=== PATIENT | male | born 1955 | race Caucasian/White ===

== ENCOUNTER 2016-08-30 11:12 | Inpatient (IN) | payer MEDICARE ==
[2016-08-30] MEDS ORDERED: SODIUM CHLORIDE 0.9% 1,000 ML IV STA (11:57)
[2016-08-30 12:33] LABS: Appearance,Urine Clear (Clear); Basophils # (A) 0.1 k/uL (0-0.2); Basophils % (A) 1 %; Bilirubin,Urine Negative (Negative); CHCM 34.6; Eosinophils % (A) 0 %; Glucose,Urine (UA) Negative (Negative); HCT 49.1 % (39.0-53.0); HDW 2.36; HGB 16.5 gm/dL (13.0-17.5); Ketones,Urine 1+ (Negative); Leukocyte Esterase,Urine Negative (Negative); Luc # (Auto) 0.11; Luc % (Auto) 2; Lymphocytes # (A) 0.9 k/uL (1.0-4.8); Lymphocytes % (A) 12 %; MCH 34.1 pg (25.0-35.0); MCHC 33.6 g/dL (31.0-37.0); MCV 101.6 fL (80.0-100.0); Macrocytosis Slight; Mean Platelet Volume 7.3; Monocytes # (A) 0.9 k/uL (0-1.0); Monocytes % (A) 12 %; Neutrophils # (A) 5.6 k/uL (1.3-7.7); Neutrophils % (A) 73 %; Nitrite,Urine Negative (Negative); PH, Urine 6.5 (5.0-8.0); Protein,Urine Negative (Negative); RBC 4.84 m/uL (4.30-5.90); RDW 13.4 % (11.5-15.5); Specific Gravity,Urine 1.012 (1.001-1.035); UA Billing (MACRO vs. MICRO) CHEM; WBC 7.6 k/uL (3.8-10.6); WBC (Perox) 6.95
[2016-08-30 12:43] LABS: INR 1.2 (<1.1); Partial Thromboplastin Time 26.4 sec (22.0-30.0); Prothrombin Time 11.6 sec (9.0-12.0)
[2016-08-30 12:46] LABS: ALT 23 U/L (21-72); AST 40 U/L (17-59); Alkaline Phosphatase 51 U/L (38-126); Anion Gap 10 mmol/L; Blood Urea Nitrogen 11 mg/dL (9-20); Calcium 10.1 mg/dL (8.4-10.2); Carbon Dioxide 28 mmol/L (22-30); Chloride 103 mmol/L (98-107); Glucose 101 mg/dL (74-99); Non-African American GFR(MDRD) >60 (>60 ml/min/1.73 sqM); Potassium 3.9 mmol/L (3.5-5.1); Sodium 141 mmol/L (137-145); Total Bilirubin 1.1 mg/dL (0.2-1.3); Total Protein 6.8 g/dL (6.3-8.2)
--- NOTE | 2016-08-30 12:50 | CT ---
EXAMINATION TYPE: CT brain wo con DATE OF EXAM: 08/30/2016 12:41 PM HISTORY: Seizure, legs are weak CT DLP: 1165 mGycm. Automated Exposure Control for Dose Reduction was Utilized. TECHNIQUE: CT scan of the head is performed without contrast. COMPARISON: CT brain February 12, 2015 FINDINGS: There is no acute intracranial hemorrhage or midline shift identified. There is diffuse v entricular and sulcal prominence consistent with diffuse age-related cerebral atrophy. There is low- attenuation in the periventricular white matter consistent with chronic small vessel ischemic change. The globes are intact and the visualized sinuses are clear. Vascular calcification of distal vert ebral arteries is redemonstrated. IMPRESSION: No acute intracranial hemorrhage or midline shift. There is moderate diffuse age-relate d cerebral atrophy and mild to moderate chronic small vessel ischemic change redemonstrated. No signi ficant change from prior study is identified.
[2016-08-30 12:55] LABS: Creatine Kinase 923 U/L (55-170)
--- NOTE | 2016-08-30 12:55 | XR ---
EXAMINATION TYPE: XR chest 2V DATE OF EXAM: 08/30/2016 COMPARISON: Chest x-ray May 10, 2015. HISTORY: Weakness in legs. TECHNIQUE: Frontal and lateral views of the chest are obtained. FINDINGS: Improved inspiration is seen on current study. There is no focal air space opacity, pleura l effusion, or pneumothorax seen. The cardiac silhouette size is upper limits of normal with ectatic thoracic aorta identified.. Degenerative change in both shoulders most prominent at acromioclavicula r joints is redemonstrated. Multilevel spurring and spine is seen. IMPRESSION: No acute cardiopulmonary process currently.
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
[2016-08-30 13:08] LABS: Troponin I <0.012 ng/mL (0.000-0.034)
[2016-08-30 13:12] LABS: Creatine Kinase MB 4.3 ng/mL (0.0-2.4)
[2016-08-30] MEDS ORDERED: NALOXONE 0.4 MG/ML 1 ML VIAL IV PRN (14:09)
[2016-08-30] MEDS ORDERED: ACETAMINOPHEN TAB 325 MG TAB PO PRN (14:09)
[2016-08-30] MEDS ORDERED: IBUPROFEN 800 MG TAB PO PRN (14:16)
[2016-08-30 18:07] VITALS: BMI 36.2
[2016-08-30] MEDS: DIVALPROEX 500 MG TABLET.DR PO SCH (18:18)
[2016-08-30] MEDS: PANTOPRAZOLE 40 MG TABLET PO SCH (18:51)
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
[2016-08-30] MEDS: ATORVASTATIN 10 MG TAB PO SCH (21:54)
[2016-08-30] MEDS: HEPARIN SODIUM,PORCINE 5,000 UNIT/ML 1 ML VIAL SQ SCH (21:54)
[2016-08-30] MEDS: LISINOPRIL 20 MG TAB PO SCH (21:54)
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
[2016-08-31] MEDS: DIVALPROEX 500 MG TABLET.DR PO SCH ×3 (02:31→17:39)
[2016-08-31] MEDS: HEPARIN SODIUM,PORCINE 5,000 UNIT/ML 1 ML VIAL SQ SCH ×2 (09:30→21:44)
[2016-08-31] MEDS: PANTOPRAZOLE 40 MG TABLET PO SCH (09:30)
[2016-08-31] MEDS: ASPIRIN 325 MG TAB PO SCH (09:30)
[2016-08-31] MEDS: MULTIVITAMINS, THERA 1 EACH TAB PO SCH (12:15)
--- NOTE | 2016-08-31 15:43 | MR ---
EXAMINATION TYPE: MR brain wo con DATE OF EXAM: 08/31/2016 COMPARISON: 02/07/2015 HISTORY: Multiple falls, recent seizure, CHI CONTRAST: Performed utilizing 0 mL intravenous MultiHance gadolinium contrast. TECHNIQUE: Multiplanar, multiecho imaging on a 3.0 Dariana magnet is performed through the brain. Stud y is performed within 24 hours of arrival to the hospital. The craniovertebral junction is normal. The pituitary is normal. Diffusion-weighted imaging is performed. No abnormal hyperintensity is present to suggest an acute i ntracranial infarct or acute ischemic change. There is a 1.2 x 0.9 cm nodule within the anterior left lateral ventricle. This was present previousl y. Periventricular white matter hyperintensity is present, likely on the basis of chronic white matter i schemic changes. Ventricles and sulci are prominent. IMPRESSIONS: 1. Atrophy with periventricular white matter ischemic changes. 2. Stable nodule left lateral ventricle
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
[2016-08-31] MEDS: ATORVASTATIN 10 MG TAB PO SCH (21:44)
[2016-08-31] MEDS: LISINOPRIL 20 MG TAB PO SCH (21:44)
[2016-08-31] MEDS: levETIRAcetam 500 MG TAB PO SCH (21:46)
[2016-09-01] MEDS: DIVALPROEX 500 MG TABLET.DR PO SCH ×3 (01:15→17:32)
--- NOTE | 2016-09-01 07:20 | EEG ---
DATE OF SERVICE: 08/31/2016 INDICATIONS FOR EXAMINATION: This patient is a 61-year-old male with history of seizure disorder. Patient admitted with breakthrough seizures despite therapeutic anticonvulsant blood levels. AGE: 61Y EEG FINDINGS: A routine 21-channel, awake digital EEG recording was accomplished utilizing the 10 to 20 international system with bipolar and referential montages. The background activity in the most alert resting state consists of a low to medium amplitude, fairly well-developed and well-sustained 6 to 7 Hz activity over the posterior head regions. This posterior rhythm attenuates to eye opening. There is a small amount of low amplitude 18 to 20 Hz beta activity seen maximally over the anterior head regions. Muscle and movement artifact was observed on a few occasions during the tracing. Hyperventilation was not performed. Photic stimulation at flash frequencies of 2 to 30 Hz produced a minimal occipital driving response. The main feature of this tracing is the occurrence on several occasions of isolated sharp wave activity emanating from the left temporal lobe. This was noted on several occasions with no motor findings. IMPRESSION: This EEG is moderately abnormal due to diffuse slowing of the EEG background. The EEG also reveals occasional sharp wave epileptiform discharge emanating from the left temporal hemisphere. No other epileptiform discharges were seen. Clinical correlation is recommended.
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
[2016-09-01 08:56] LABS: Basophils % (A) 0 %; CH 35.1; CHCM 35.4; Eosinophils # (A) 0.1 k/uL (0-0.7); Eosinophils % (A) 2 %; HCT 45.7 % (39.0-53.0); HGB 15.9 gm/dL (13.0-17.5); Luc # (Auto) 0.18; Luc % (Auto) 2; Lymphocytes # (A) 1.7 k/uL (1.0-4.8); Lymphocytes % (A) 22 %; MCH 34.6 pg (25.0-35.0); MCHC 34.7 g/dL (31.0-37.0); MCV 99.7 fL (80.0-100.0); Monocytes # (A) 0.8 k/uL (0-1.0); Monocytes % (A) 10 %; Neutrophils % (A) 63 %; RBC 4.59 m/uL (4.30-5.90); WBC 7.8 k/uL (3.8-10.6); WBC (Perox) 8.22
[2016-09-01 09:06] LABS: Anion Gap 8 mmol/L; Blood Urea Nitrogen 13 mg/dL (9-20); Calcium 9.4 mg/dL (8.4-10.2); Carbon Dioxide 26 mmol/L (22-30); Chloride 107 mmol/L (98-107); Creatine Kinase 380 U/L (55-170); Glucose 100 mg/dL (74-99); Non-African American GFR(MDRD) >60 (>60 ml/min/1.73 sqM); Potassium 3.9 mmol/L (3.5-5.1); Sodium 141 mmol/L (137-145)
[2016-09-01] MEDS: ASPIRIN 325 MG TAB PO SCH (09:18)
[2016-09-01] MEDS: HEPARIN SODIUM,PORCINE 5,000 UNIT/ML 1 ML VIAL SQ SCH ×2 (09:18→21:31)
[2016-09-01] MEDS: PANTOPRAZOLE 40 MG TABLET PO SCH (09:18)
[2016-09-01] MEDS: levETIRAcetam 500 MG TAB PO SCH ×2 (09:19→21:31)
[2016-09-01] MEDS: MULTIVITAMINS, THERA 1 EACH TAB PO SCH (11:24)
[2016-09-01] MEDS: ATORVASTATIN 10 MG TAB PO SCH (21:30)
[2016-09-01] MEDS: LISINOPRIL 20 MG TAB PO SCH (21:31)
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
[2016-09-02] MEDS: DIVALPROEX 500 MG TABLET.DR PO SCH ×3 (01:40→17:00)
[2016-09-02] MEDS: ALPRAZolam 0.25 MG TAB PO PRN ×2 (01:40→22:00)
[2016-09-02] MEDS: HEPARIN SODIUM,PORCINE 5,000 UNIT/ML 1 ML VIAL SQ SCH ×2 (07:35→21:30)
[2016-09-02] MEDS: levETIRAcetam 500 MG TAB PO SCH ×2 (07:35→21:30)
[2016-09-02] MEDS: PANTOPRAZOLE 40 MG TABLET PO SCH (07:36)
[2016-09-02] MEDS: ASPIRIN 325 MG TAB PO SCH (07:36)
[2016-09-02 10:11] LABS: Basophils % (A) 1 %; CHCM 34.9; Eosinophils # (A) 0.2 k/uL (0-0.7); Eosinophils % (A) 3 %; HCT 43.4 % (39.0-53.0); HDW 2.48; HGB 15.1 gm/dL (13.0-17.5); Luc # (Auto) 0.15; Luc % (Auto) 3; Lymphocytes # (A) 1.5 k/uL (1.0-4.8); Lymphocytes % (A) 27 %; MCH 34.9 pg (25.0-35.0); MCHC 34.7 g/dL (31.0-37.0); MCV 100.7 fL (80.0-100.0); Mean Platelet Volume 7.2; Monocytes # (A) 0.5 k/uL (0-1.0); Monocytes % (A) 10 %; Neutrophils # (A) 3.3 k/uL (1.3-7.7); Neutrophils % (A) 58 %; RBC 4.31 m/uL (4.30-5.90); RDW 12.8 % (11.5-15.5); WBC 5.7 k/uL (3.8-10.6)
[2016-09-02 10:12] LABS: Anion Gap 7 mmol/L; Blood Urea Nitrogen 13 mg/dL (9-20); Calcium 9.5 mg/dL (8.4-10.2); Carbon Dioxide 27 mmol/L (22-30); Chloride 105 mmol/L (98-107); Glucose 124 mg/dL (74-99); Non-African American GFR(MDRD) >60 (>60 ml/min/1.73 sqM); Potassium 3.7 mmol/L (3.5-5.1); Sodium 139 mmol/L (137-145)
[2016-09-02] MEDS: MULTIVITAMINS, THERA 1 EACH TAB PO SCH (11:07)
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
[2016-09-02] MEDS: LISINOPRIL 20 MG TAB PO SCH (21:29)
[2016-09-02] MEDS: CIPROFLOXACIN HCL 500 MG TAB PO SCH (21:30)
[2016-09-02] MEDS: ATORVASTATIN 10 MG TAB PO SCH (21:30)
[2016-09-03] MEDS: DIVALPROEX 500 MG TABLET.DR PO SCH ×2 (02:58→10:27)
[2016-09-03] MEDS: ALPRAZolam 0.25 MG TAB PO PRN (05:07)
[2016-09-03] MEDS: PANTOPRAZOLE 40 MG TABLET PO SCH (07:31)
[2016-09-03] MEDS: levETIRAcetam 500 MG TAB PO SCH (07:31)
[2016-09-03] MEDS: ASPIRIN 325 MG TAB PO SCH (07:32)
[2016-09-03] MEDS: CIPROFLOXACIN HCL 500 MG TAB PO SCH (07:32)
[2016-09-03] MEDS: HEPARIN SODIUM,PORCINE 5,000 UNIT/ML 1 ML VIAL SQ SCH (07:32)
[2016-09-03 08:10] VITALS: BP 129/85; PULSE 83; RESP 20; TEMP 98.2
[2016-09-03 08:43] LABS: Basophils % (A) 1 %; CH 34.9; CHCM 33.8; Eosinophils # (A) 0.2 k/uL (0-0.7); Eosinophils % (A) 4 %; HCT 48.9 % (39.0-53.0); HGB 16.4 gm/dL (13.0-17.5); Luc # (Auto) 0.12; Luc % (Auto) 2; Lymphocytes # (A) 1.7 k/uL (1.0-4.8); Lymphocytes % (A) 31 %; MCH 34.8 pg (25.0-35.0); MCHC 33.5 g/dL (31.0-37.0); MCV 103.7 fL (80.0-100.0); Macrocytosis Slight; Mean Platelet Volume 7.5; Monocytes # (A) 0.5 k/uL (0-1.0); Monocytes % (A) 8 %; Neutrophils % (A) 54 %; RBC 4.72 m/uL (4.30-5.90); RDW 13.3 % (11.5-15.5); WBC 5.6 k/uL (3.8-10.6); WBC (Perox) 5.49
[2016-09-03 08:57] LABS: Anion Gap 12 mmol/L; Blood Urea Nitrogen 11 mg/dL (9-20); Calcium 9.7 mg/dL (8.4-10.2); Carbon Dioxide 25 mmol/L (22-30); Chloride 104 mmol/L (98-107); Glucose 138 mg/dL (74-99); Non-African American GFR(MDRD) >60 (>60 ml/min/1.73 sqM); Potassium 3.8 mmol/L (3.5-5.1); Sodium 141 mmol/L (137-145)
[2016-09-03] MEDS: MULTIVITAMINS, THERA 1 EACH TAB PO SCH (10:27)
--- NOTE | 2016-09-03 12:26 | DS ---
DATE OF ADMISSION: 08/31/2016 DATE OF DISCHARGE: A 61-year-old admitted with breakthrough seizures and patient was started in Depakote and patient clinically doing well and patient is requiring subacute rehabilitation because of generalized deconditioning. Depakote level on admission was therapeutic and patient's MRI did not show any significant acute abnormalities. Patient was seen and examined on the day of discharge. Vitals are stable. PHYSICAL EXAMINATION: GENERAL: The patient is alert and oriented x3, not in any acute distress. Well developed, well nourished. HEENT: Pupils are round and equally reacting to light. EOMI. No scleral icterus. No conjunctival pallor. Normocephalic, atraumatic. No pharyngeal erythema. No thyromegaly. CARDIOVASCULAR: S1 and S2 present. No murmurs, rubs, or gallops. PULMONARY: Chest is clear to auscultation, no wheezing or crackles. ABDOMEN: Soft, nontender, nondistended, normoactive bowel sounds. No palpable organomegaly. MUSCULOSKELETAL: No joint swelling or deformity. EXTREMITIES: No cyanosis, clubbing, or pedal edema. NEUROLOGICAL: Gross neurological examination did not reveal any focal deficits. SKIN: No rashes. FINAL DIAGNOSES: 1. Recurrent breakthrough seizures and patient was already on Depakote now. Keppra was added to his regimen. 2. Elevated creatinine kinase secondary to seizure without any rhabdomyolysis. 3. Chronic paroxysmal atrial fibrillation, rate controlled at this point of time. 4. Dementia. 5. Essential hypertension. 6. Hyperlipidemia. 7. Degenerative joint disease. 8. Benign prostatic hypertrophy. 9. History of pulmonary embolism and deep venous thrombosis. Please refer to my depart summary for the details of discharge medications. Activity as tolerated. Cardiac diet. Patient will be discharged to subacute rehabilitation that is [facility]. Patient will follow with Dr. Power or Dr. Tam in the rehab. Activity as tolerated. Cardiac diet. Patient will follow with Dr. Shane Peterson once he is out of subacute rehab and patient will follow with Dr. Rojelio Garcia in 1 to 2 weeks.
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
== END 2016-09-03 15:26 | DRG 101 ==
LOC: EC 11:12 → 4MS4W 14:09 → OBSVTOIN 08-31 14:06
PROVIDERS: ADMIT Family Medicine; ATTEND Family Medicine
DX: G40.909 Epilepsy, unspecified, not intractable, without status epilepticus (principal); F03.90 Unspecified dementia, unspecified severity, without behavioral disturbance, psychotic disturbance, mood disturbance, and anxiety; I48.0 Paroxysmal atrial fibrillation; I45.2 Bifascicular block; N39.498 Other specified urinary incontinence; I48.2 Chronic atrial fibrillation; R29.6 Repeated falls; R79.89 Other specified abnormal findings of blood chemistry; R53.1 Weakness; M19.90 Unspecified osteoarthritis, unspecified site; N40.1 Benign prostatic hyperplasia with lower urinary tract symptoms; K21.9 Gastro-esophageal reflux disease without esophagitis; E66.9 Obesity, unspecified; I67.9 Cerebrovascular disease, unspecified; I73.9 Peripheral vascular disease, unspecified; I83.90 Asymptomatic varicose veins of unspecified lower extremity; I10 Essential (primary) hypertension; E78.5 Hyperlipidemia, unspecified; H54.7 Unspecified visual loss; H91.93 Unspecified hearing loss, bilateral; R26.9 Unspecified abnormalities of gait and mobility; Z86.718 Personal history of other venous thrombosis and embolism; Z68.36 Body mass index [BMI] 36.0-36.9, adult; Z86.711 Personal history of pulmonary embolism; Z79.899 Other long term (current) drug therapy; Z82.5 Family history of asthma and other chronic lower respiratory diseases; Z87.828 Personal history of other (healed) physical injury and trauma; Z80.9 Family history of malignant neoplasm, unspecified; Z88.5 Allergy status to narcotic agent; Z87.820 Personal history of traumatic brain injury; Z79.82 Long term (current) use of aspirin; Z79.1 Long term (current) use of non-steroidal anti-inflammatories (NSAID); Z91.81 History of falling; Z96.651 Presence of right artificial knee joint; Z80.0 Family history of malignant neoplasm of digestive organs; Z80.3 Family history of malignant neoplasm of breast; Z80.8 Family history of malignant neoplasm of other organs or systems; W07.XXXA Fall from chair, initial encounter
CPT/HCPCS: 36415; 70450; 70551; 71020; 80048; 80053; 80164; 80177; 81003; 82550; 82553; 83605; 84484; 85025; 85610; 85730; 87077; 87086; 87186; 93005; 95816; 96360; 96361; 96372; 99285

== ENCOUNTER 2017-10-25 12:56 | Inpatient (IN) | payer MEDICARE, OTHER ==
[2017-10-25] MEDS ORDERED: LEVOFLOXACIN 750MG-D5W PMX 750 MG in DEXTROSE/WATER 1 150ML.BAG IVPB STA (13:02)
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
[2017-10-25] MEDS ORDERED: SODIUM CHLORIDE 0.9% 500 ML IV SCH (13:15)
[2017-10-25 13:37] LABS: Basophils % (A) 0 %; Eosinophils # (A) 0.3 k/uL (0-0.7); Eosinophils % (A) 2 %; HCT 38.1 % (39.0-53.0); HGB 12.6 gm/dL (13.0-17.5); Lymphocytes # (A) 1.3 k/uL (1.0-4.8); Lymphocytes % (A) 9 %; MCH 30.8 pg (25.0-35.0); MCV 93.2 fL (80.0-100.0); Mean Platelet Volume 6.6; Monocytes % (A) 7 %; Neutrophils # (A) 11.8 k/uL (1.3-7.7); Neutrophils % (A) 81 %; Platelet Count 239 k/uL (150-450); RBC 4.09 m/uL (4.30-5.90); RDW 13.6 % (11.5-15.5); WBC 14.6 k/uL (3.8-10.6)
[2017-10-25 13:41] LABS: INR 1.1 (<1.2); Partial Thromboplastin Time 26.2 sec (22.0-30.0); Prothrombin Time 10.6 sec (9.0-12.0)
[2017-10-25 13:44] LABS: ALT 32 U/L (21-72); AST 14 U/L (17-59); Albumin 3.2 g/dL (3.5-5.0); Alkaline Phosphatase 56 U/L (38-126); Anion Gap 8 mmol/L; Blood Urea Nitrogen 15 mg/dL (9-20); Carbon Dioxide 27 mmol/L (22-30); Chloride 100 mmol/L (98-107); Glucose 100 mg/dL (74-99); Potassium 4.6 mmol/L (3.5-5.1); Sodium 135 mmol/L (137-145); Total Bilirubin 0.4 mg/dL (0.2-1.3); Total Protein 5.5 g/dL (6.3-8.2)
[2017-10-25] MEDS ORDERED: LORazepam 2 MG/ML INJ IV STA (13:50)
[2017-10-25] MEDS ORDERED: SODIUM CHLORIDE 0.9% 1,000 ML IV ONE (13:54)
[2017-10-25 13:56] LABS: Appearance,Urine Cloudy (Clear); Bacteria,Urine Many /hpf; Bilirubin,Urine Negative (Negative); Blood,Urine Large (Negative); Color,Urine Yellow; Glucose,Urine (UA) Negative (Negative); Ketones,Urine Trace (Negative); Leukocyte Esterase,Urine Large (Negative); Nitrite,Urine Negative (Negative); Protein,Urine 2+ (Negative); RBC,Urine >182 /hpf (0-5); Specific Gravity,Urine 1.019 (1.001-1.035); Squamous Epithelial Cell,Urine 6 /hpf (0-4); Urobilinogen,Urine <2.0 mg/dL (<2.0); WBC,Urine >182 /hpf (0-5)
[2017-10-25] MEDS ORDERED: MAG HYDROX/AL HYDROX/SIMETH 30 ML CUP PO PRN (16:07)
[2017-10-25] MEDS ORDERED: NITROGLYCERIN SL TABS 0.4 MG TAB SUBLINGUAL PRN (16:07)
[2017-10-25] MEDS ORDERED: ZINC OXIDE 20% OINT 28.4 GM TUBE TOPICAL PRN (16:07)
[2017-10-25] MEDS ORDERED: ALBUTEROL NEBULIZED 2.5 MG/3 ML INHALATION PRN (16:07)
[2017-10-25] MEDS ORDERED: guaiFENesin SYRUP 100MG/5ML 200 MG/10 ML CUP PO PRN (16:07)
--- NOTE | 2017-10-25 16:36 | XR ---
EXAMINATION TYPE: XR chest 1V portable DATE OF EXAM: 10/25/2017 Comparison: 08/30/2016 Clinical History: 62-year-old male CHF Findings: Heart is mildly enlarged. Elongation/ectasia of the thoracic aorta. Mild diffuse interstitial promine nce. No cata consolidation or pleural effusion. Impression: Cardiomegaly and interstitial/vascular prominence. Correlate for mild CHF. No cata pulmonary edema.
--- NOTE | 2017-10-25 17:05 | HP ---
HISTORY AND PHYSICAL DATE OF SERVICE: 10/25/2017 CHIEF COMPLAINTS: UTI with failure of outpatient treatment. HISTORY OF PRESENT ILLNESS: This 62-year-old gentleman with past history of atrial fibrillation, dementia, GERD, hypertension, hyperlipidemia, DJD being followed by Dr. Shane Peterson in the outpatient setting recently admitted with recurrent seizures. The patient also had a gait dysfunction. Patient was sent to [facility] on the [place] with Dr. Tam. The patient apparently had UTI, treated with antibiotics because of failure of outpatient treatment. The patient was taken to [facility] and admitted for further evaluation. Patient was found to be confused. Patient had features of sepsis. Patient started on IV Levaquin. On admission, at this time in the ER white count is elevated to 14.2. There is no history of fever, rigors, chills. No headache, loss of consciousness, seizures. Patient is mildly confused. Able to give sketchy history. The patient follows with Dr. Shane Peterson in the outpatient setting. PAST MEDICAL HISTORY: History atrial fibrillation, dementia, seizures, DJD, hypertension, pulmonary embolism. MEDICATIONS: Prior to admission include home medications are reviewed and include: 1. Zinc oxide 1 application b.i.d. p.r.n. 2. Nitroglycerin 0.4 mg p.r.n. 3. Maalox 30 mL q.4h p.r.n. 4. Robitussin 200 mg q.4h p.r.n. 5. Ventolin 2.5 q.4h. 6. Keppra 500 mg b.i.d. 7. Tylenol 650 p.o. b.i.d. 8. Lasix 40 mg p.o. b.i.d. 9. Depakote 15 mg p.o. q.h.s. 10.Ceftin 500 mg p.o. b.i.d. 11.Multivitamins 1 p.o. daily. 12.Melatonin 5 mg q.h.s. 13.Klor-Con 20 mg p.o. daily. 14.Prinivil 10 mg q.h.s. 15.Cymbalta 20 mg p.o. daily. 16.Celexa 10 mg p.o. daily. 17.Lipitor 10 mg q.h.s. 18.Ecotrin 81 mg p.o. daily. ALLERGIES: NORCO. FAMILY HISTORY: History of cancer of breast and lymph node cancer. SOCIAL HISTORY: History of smoking, no history of alcohol. REVIEW OF SYSTEMS: ENT: Diminished hearing or vision. CARDIOVASCULAR: No angina. RESPIRATORY: No cough or hemoptysis. GI: As mentioned earlier. : No dysuria. NERVOUS SYSTEM: As mentioned earlier. ALLERGY/IMMUNOLOGY: No asthma or hay fever. MUSCULOSKELETAL: As mentioned earlier. HEMATOLOGY: No history of anemia. ENDOCRINE: No history of diabetes or hypothyroidism. CONSTITUTIONAL: As mentioned earlier. DERMATOLOGY: Negative. RHEUMATOLOGY Negative. PSYCHIATRY: Negative. PHYSICAL EXAMINATION: Alert and oriented x3. Pulse is 84, blood pressure 120/70, respiration 18, temp 99.1, pulse ox 98% on 2 L. HEENT: Conjunctivae normal. Oral mucosa moist. NECK: No jugular venous distention. No carotid bruit. No lymph node enlargement. CARDIOVASCULAR: S1, S2. RESPIRATORY: Breath sounds diminished in the bases. No rhonchi, no crackles. ABDOMEN: Soft, obese, nontender. No mass palpable. LEGS: Bilateral leg edema. NERVOUS SYSTEM: Higher function as mentioned. Moves all four limbs. No focal motor- sensory deficits. Diffuse weakness as mentioned earlier. LYMPHATIC: No lymphadenopathy in the neck, axillae, groin. SKIN: No ulcer, rash or bleeding. JOINTS: No active deforming arthropathy. LABS: WBC 14, hemoglobin 12.6, sodium 135. UA noted. ASSESSMENT: 1. Acute urinary tract infection with sepsis with failure of outpatient treatment. 2. Increased WBC. 3. Change in mental status acute metabolic encephalopathy from sepsis. 4. History of recent seizures and breakthrough seizures. 5. Atrial fibrillation. 6. Dementia. 7. Gastroesophageal reflux disease. 8. Hypertension. 9. Hyperlipidemia. 10.History of degenerative joint disease. 11.History of pulmonary embolus. 12.History of paroxysmal atrial fibrillation. 13.History of BPH. 14.History of degenerative joint disease. 15.Obesity with body mass index of 50. 16.FULL CODE. RECOMMENDATIONS AND DISCUSSION: This 62-year-old gentleman who presented with multiple complex medical issues, at this time I recommend to continue current management and symptomatic treatment. I will initiate broad-spectrum IV antibiotics. Otherwise I would also recommend cultures, resume the home medications. Hold sedatives. Guarded prognosis because of the multiple complex medical issues. Further recommendations to follow. DVT prophylaxis. See orders for details. Copy of dictation forwarded to Dr. Shane Peterson who is the primary physician. MMODL / IJN: [id number] /
[2017-10-25] MEDS: PANTOPRAZOLE 40 MG/10 ML VIAL IVP SCH (17:45)
[2017-10-25] MEDS: HEPARIN SODIUM,PORCINE 5,000 UNIT/ML 1 ML VIAL SQ SCH (17:45)
[2017-10-25] MEDS: ACETAMINOPHEN TAB 325 MG TAB PO SCH (21:49)
[2017-10-25] MEDS: DIVALPROEX 500 MG TABLET.DR PO SCH (21:50)
[2017-10-25] MEDS: levETIRAcetam 500 MG TAB PO SCH (21:50)
[2017-10-25] MEDS: LISINOPRIL 20 MG TAB PO SCH (21:50)
[2017-10-25] MEDS: ATORVASTATIN 10 MG TAB PO SCH (21:50)
[2017-10-25] MEDS: MELATONIN 5 MG TABLET PO SCH (21:50)
[2017-10-25 22:00] LABS: Basophils % (A) 0 %; Eosinophils # (A) 0.1 k/uL (0-0.7); Eosinophils % (A) 1 %; HCT 40.5 % (39.0-53.0); HGB 13.8 gm/dL (13.0-17.5); Lymphocytes # (A) 1.2 k/uL (1.0-4.8); Lymphocytes % (A) 8 %; MCH 31.7 pg (25.0-35.0); MCV 93.3 fL (80.0-100.0); Mean Platelet Volume 7.5; Monocytes # (A) 1.3 k/uL (0-1.0); Monocytes % (A) 9 %; Neutrophils # (A) 11.7 k/uL (1.3-7.7); Neutrophils % (A) 81 %; Platelet Count 240 k/uL (150-450); RBC 4.34 m/uL (4.30-5.90); RDW 13.5 % (11.5-15.5); WBC 14.4 k/uL (3.8-10.6)
[2017-10-26] MEDS ORDERED: HEPARIN SODIUM,PORCINE 5,000 UNIT/ML 1 ML VIAL ONE
[2017-10-26] MEDS: FUROSEMIDE 40 MG TAB PO SCH ×2 (06:15→14:38)
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
[2017-10-26] MEDS: HEPARIN SODIUM,PORCINE 5,000 UNIT/ML 1 ML VIAL SQ SCH ×4 (07:40→23:38)
[2017-10-26 08:14] LABS: Basophils % (A) 0 %; Eosinophils # (A) 0.1 k/uL (0-0.7); Eosinophils % (A) 1 %; HCT 38.6 % (39.0-53.0); HGB 13.2 gm/dL (13.0-17.5); Lymphocytes % (A) 10 %; MCH 31.8 pg (25.0-35.0); MCHC 34.3 g/dL (31.0-37.0); MCV 92.6 fL (80.0-100.0); Mean Platelet Volume 7.5; Monocytes % (A) 10 %; Neutrophils # (A) 8.1 k/uL (1.3-7.7); Neutrophils % (A) 78 %; Platelet Count 216 k/uL (150-450); RBC 4.17 m/uL (4.30-5.90); RDW 13.2 % (11.5-15.5); WBC 10.4 k/uL (3.8-10.6)
[2017-10-26] MEDS: ACETAMINOPHEN TAB 325 MG TAB PO SCH ×2 (08:50→21:27)
[2017-10-26] MEDS: PANTOPRAZOLE 40 MG/10 ML VIAL IVP SCH (08:50)
[2017-10-26] MEDS: MULTIVITAMINS, THERA 1 EACH TAB PO SCH (08:51)
[2017-10-26] MEDS: ASPIRIN 325 MG TAB PO SCH (08:51)
[2017-10-26] MEDS: CITALOPRAM HYDROBROMIDE 10 MG TAB PO SCH (08:51)
[2017-10-26] MEDS: DULoxetine HCL 20 MG CAPSULE.DR PO SCH (08:51)
[2017-10-26] MEDS: levETIRAcetam 500 MG TAB PO SCH ×2 (08:51→21:29)
[2017-10-26] MEDS: DIVALPROEX 500 MG TABLET.DR PO SCH ×2 (08:51→21:28)
[2017-10-26] MEDS: POTASSIUM CHLORIDE ER 20 MEQ TAB.ER PO SCH (08:51)
[2017-10-26 09:26] LABS: Anion Gap 9 mmol/L; Blood Urea Nitrogen 14 mg/dL (9-20); Calcium 9.1 mg/dL (8.4-10.2); Carbon Dioxide 29 mmol/L (22-30); Chloride 100 mmol/L (98-107); Glucose 99 mg/dL (74-99); Potassium 4.7 mmol/L (3.5-5.1); Sodium 138 mmol/L (137-145)
--- NOTE | 2017-10-26 11:56 | P.PN ---
Subjective Patient resting in bed appears to be confused. Had consultation with Dr. Soliz regarding UTI with sepsis Objective - Vital Signs Vital signs: Vital Signs Temp 97.8 F 10/26/17 05:40 Pulse 77 10/26/17 05:40 Resp 16 10/26/17 05:40 BP 100/66 10/26/17 05:40 Pulse Ox 97 10/26/17 05:40 Intake & Output 10/25/17 10/26/17 10/26/17 18:59 06:59 18:59 Intake Total 600 Output Total 50 Balance -50 600 Weight 181.437 kg Intake: Intake, IV Titration 600 Amount Sodium Chloride 0.9% 1, 600 000 ml @ 75 mls/hr IV . [id number] ONE Rx#:[id number] Output: Urine 50 Uretheral (Yanez) 50 Other: Voiding Method Indwelling Catheter Indwelling Catheter Indwelling Catheter # Bowel Movements 1 - Constitutional General appearance: Present: morbidly obese - EENT Eyes: Present: PERRLA Ears: bilateral: normal - Neck Neck: Present: normal ROM - Respiratory Respiratory: bilateral: CTA - Cardiovascular Rhythm: irregularly irregular - Gastrointestinal General gastrointestinal: Present: soft - Genitourinary Genitourinary Comment(s): Fall catheter - Neurologic Neurologic: Present: CNII-XII intact - Musculoskeletal Musculoskeletal: Present: generalized weakness - Psychiatric Psychiatric Comment(s): Patient awake and alert pleasantly confused - Labs CBC & Chem 7: 10/26/17 07:26 10/26/17 07:26 Labs: Abnormal Lab Results - Last 24 Hours (Table) 10/25/17 10/25/17 10/25/17 Range/Units 13:17 13:17 13:40 WBC 14.6 H (3.8-10.6) k/uL RBC 4.09 L (4.30-5.90) m/uL Hgb 12.6 L (13.0-17.5) gm/dL Hct 38.1 L (39.0-53.0) % Neutrophils # 11.8 H (1.3-7.7) k/uL Monocytes # (0-1.0) k/uL Sodium 135 L (137-145) mmol/L Glucose 100 H (74-99) mg/dL AST 14 L (17-59) U/L Total Protein 5.5 L (6.3-8.2) g/dL Albumin 3.2 L (3.5-5.0) g/dL Urine Protein 2+ H (Negative) Urine Ketones Trace H (Negative) Urine Blood Large H (Negative) Ur Leukocyte Esterase Large H (Negative) Urine RBC >182 H (0-5) /hpf Urine WBC >182 H (0-5) /hpf Urine WBC Clumps Occasional H (None) /hpf Ur Squamous Epith Cells 6 H (0-4) /hpf Urine Bacteria Many H (None) /hpf 10/25/17 10/26/17 Range/Units 21:05 07:26 WBC 14.4 H (3.8-10.6) k/uL RBC 4.17 L (4.30-5.90) m/uL Hgb (13.0-17.5) gm/dL Hct 38.6 L (39.0-53.0) % Neutrophils # 11.7 H 8.1 H (1.3-7.7) k/uL Monocytes # 1.3 H (0-1.0) k/uL Sodium (137-145) mmol/L Glucose (74-99) mg/dL AST (17-59) U/L Total Protein (6.3-8.2) g/dL Albumin (3.5-5.0) g/dL Urine Protein (Negative) Urine Ketones (Negative) Urine Blood (Negative) Ur Leukocyte Esterase (Negative) Urine RBC (0-5) /hpf Urine WBC (0-5) /hpf Urine WBC Clumps (None) /hpf Ur Squamous Epith Cells (0-4) /hpf Urine Bacteria (None) /hpf Microbiology - Last 24 Hours (Table) 10/25/17 13:40 Urine Culture - Preliminary Urine,Catheterized - Imaging and Cardiology Chest x-ray: report reviewed Assessment and Plan Plan: Assessment Acute urinary tract infection with sepsis failed outpatient therapy Change in mental status acute metabolic encephalopathy from sepsis History of seizures History of atrial fibrillation chronic History of dementia GERD Hypertension Hyperlipidemia History of degenerative joint disease History of pulmonary embolus History of BPH Morbid obesity BMI 50 Plan Patient on Levaquin Continue consultation with Dr. Pete
[2017-10-26] MEDS: LEVOFLOXACIN 750MG-D5W PMX 750 MG in DEXTROSE/WATER 1 150ML.BAG IVPB SCH (14:38)
[2017-10-26] MEDS: ATORVASTATIN 10 MG TAB PO SCH (21:29)
[2017-10-26] MEDS: MELATONIN 5 MG TABLET PO SCH (21:29)
[2017-10-26] MEDS: LISINOPRIL 20 MG TAB PO SCH (21:29)
[2017-10-27 08:21] LABS: Basophils % (A) 0 %; Eosinophils # (A) 0.2 k/uL (0-0.7); Eosinophils % (A) 2 %; HCT 37.1 % (39.0-53.0); HGB 12.3 gm/dL (13.0-17.5); Lymphocytes % (A) 15 %; MCH 30.8 pg (25.0-35.0); MCHC 33.2 g/dL (31.0-37.0); Monocytes # (A) 0.5 k/uL (0-1.0); Monocytes % (A) 8 %; Neutrophils # (A) 4.7 k/uL (1.3-7.7); Neutrophils % (A) 72 %; Platelet Count 290 k/uL (150-450); WBC 6.6 k/uL (3.8-10.6)
[2017-10-27 08:43] LABS: Anion Gap 10 mmol/L; Blood Urea Nitrogen 15 mg/dL (9-20); Calcium 9.1 mg/dL (8.4-10.2); Carbon Dioxide 27 mmol/L (22-30); Chloride 99 mmol/L (98-107); Glucose 118 mg/dL (74-99); Potassium 4.3 mmol/L (3.5-5.1); Sodium 136 mmol/L (137-145)
[2017-10-27] MEDS: HEPARIN SODIUM,PORCINE 5,000 UNIT/ML 1 ML VIAL SQ SCH ×2 (09:45→15:41)
[2017-10-27] MEDS: PANTOPRAZOLE 40 MG/10 ML VIAL IVP SCH (09:45)
[2017-10-27] MEDS: MULTIVITAMINS, THERA 1 EACH TAB PO SCH (09:45)
[2017-10-27] MEDS: DIVALPROEX 500 MG TABLET.DR PO SCH ×2 (09:45→21:35)
[2017-10-27] MEDS: ASPIRIN 325 MG TAB PO SCH (09:45)
[2017-10-27] MEDS: POTASSIUM CHLORIDE ER 20 MEQ TAB.ER PO SCH (09:46)
[2017-10-27] MEDS: levETIRAcetam 500 MG TAB PO SCH ×2 (09:46→21:34)
[2017-10-27] MEDS: CITALOPRAM HYDROBROMIDE 10 MG TAB PO SCH (09:46)
[2017-10-27] MEDS: DULoxetine HCL 20 MG CAPSULE.DR PO SCH (09:46)
[2017-10-27] MEDS: ACETAMINOPHEN TAB 325 MG TAB PO SCH ×2 (09:56→21:35)
[2017-10-27] MEDS: FUROSEMIDE 40 MG TAB PO SCH (15:41)
[2017-10-27] MEDS: LEVOFLOXACIN 750MG-D5W PMX 750 MG in DEXTROSE/WATER 1 150ML.BAG IVPB SCH (15:41)
--- NOTE | 2017-10-27 17:52 | PN ---
PROGRESS NOTE DATE OF SERVICE: 10/27/2017 I am covering for Dr. Shane Peterson. This 62-year-old gentleman admitted with acute UTI and possible features of sepsis, also ESBL E coli was apparently grown from the culture. No chest pain. No palpitations. PAST MEDICAL HISTORY: Reviewed. REVIEW OF SYSTEMS: Cardiovascular: No angina or palpitations. Respirations: As mentioned earlier. GI: No nausea or vomiting. : No dysuria or hematuria. Nervous system: No numbness or weakness. Allergy/Immunology: No asthma or hayfever. Musculoskeletal: As mentioned earlier. CURRENT MEDICATIONS ARE: Reviewed and include: 1. Tylenol 650 p.o. t.i.d. 3. Ventolin 2.5 q.4h. 4. Aspirin 320 mg daily. 5. Lipitor 10 mg daily. 6. Celexa 10 mg p.o. daily. 7. Depakote 1500 mg p.o. b.i.d. 8. Cymbalta 20 mg p.o. daily. 9. Lasix 40 mg p.o. b.i.d. 10.Robitussin 200 mg q.4h p.r.n. 11.Heparin 5000 subcu q.i.d. 12.Keppra 500 mg p.o. b.i.d. 13.Zestril 20 mg q.h.s. 14.Melatonin 5 mg. 15.Meropenem 1 g q.8h. 16.Zinc oxide. 17.Multivitamins one p.o. daily. 18.Nitrostat 0.4 sublingual p.r.n. 19.Protonix 40 mg q.i.d. 20.K-Dur 20 mEq p.o. daily. Patient is alert, oriented x 3. Pulse 66, blood pressure 101/70, respiration 18, temperature 97.7, pulse ox 97% on 2 L. HEENT is conjunctivae normal. Oral mucosa moist. Neck is no jugular venous distention. No carotid bruit. No lymph node enlargement. Cardiovascular System: S1, S2 muffled. Respirations: Breath sounds diminished in the bases. A few scattered rhonchi and crackles. Abdomen is soft , obese, nontender. Legs are no edema. No swelling. Central nervous system: No focal deficits. LABS: WBC 6.2, hemoglobin 12.3. UA noted. ASSESSMENT: 1. Acute urinary tract infection with sepsis with gram-negative bacilli possibly ESBL E coli with failure of outpatient treatment. 2. Increased WBC. 3. Change in mental status with acute metabolic encephalopathy from sepsis. 4. History of recurrent seizures and breakthrough seizures. 5. Atrial fibrillation. 6. Dementia. 7. Gastroesophageal reflux disease. 8. Hypertension. 9. Hyperlipidemia. 10.History of degenerative joint disease. 11.History of pulmonary embolus. 12.History of paroxysmal atrial fibrillation. 13.History of benign prostatic hypertrophy. 14.History of degenerative joint disease. 15.Obesity with body mass index of 50. 16.FULL CODE. RECOMMENDATIONS AND DISCUSSION: Recommend to continue current medications, management and symptomatic treatment. Continue with IV antibiotics. Otherwise, infectious disease evaluation. The patient is currently on meropenem and continue to monitor. Guarded prognosis. Further recommendations to follow. MMODL / IJN: [id number] / MTDD
[2017-10-27] MEDS: MEROPENEM 1 GM in SODIUM CHLORIDE 0.9% 100 ML IVPB SCH (17:56)
[2017-10-27] MEDS: LISINOPRIL 20 MG TAB PO SCH (21:34)
[2017-10-27] MEDS: MELATONIN 5 MG TABLET PO SCH (21:34)
[2017-10-27] MEDS: ATORVASTATIN 10 MG TAB PO SCH (21:35)
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
[2017-10-28] MEDS: HEPARIN SODIUM,PORCINE 5,000 UNIT/ML 1 ML VIAL SQ SCH ×3 (00:10→17:22)
[2017-10-28] MEDS: MEROPENEM 1 GM in SODIUM CHLORIDE 0.9% 100 ML IVPB SCH ×3 (00:10→17:22)
[2017-10-28] MEDS: FUROSEMIDE 40 MG TAB PO SCH ×2 (06:28→13:09)
[2017-10-28 08:18] LABS: Basophils % (A) 0 %; Eosinophils # (A) 0.2 k/uL (0-0.7); Eosinophils % (A) 5 %; HCT 37.7 % (39.0-53.0); HGB 12.3 gm/dL (13.0-17.5); Lymphocytes # (A) 0.9 k/uL (1.0-4.8); Lymphocytes % (A) 21 %; MCH 30.5 pg (25.0-35.0); MCHC 32.5 g/dL (31.0-37.0); MCV 93.9 fL (80.0-100.0); Mean Platelet Volume 6.9; Monocytes # (A) 0.4 k/uL (0-1.0); Monocytes % (A) 9 %; Neutrophils # (A) 2.8 k/uL (1.3-7.7); Neutrophils % (A) 62 %; Platelet Count 294 k/uL (150-450); RBC 4.02 m/uL (4.30-5.90); WBC 4.5 k/uL (3.8-10.6)
[2017-10-28 08:29] LABS: Anion Gap 6 mmol/L; Blood Urea Nitrogen 14 mg/dL (9-20); Carbon Dioxide 29 mmol/L (22-30); Chloride 101 mmol/L (98-107); Glucose 115 mg/dL (74-99); Potassium 4.4 mmol/L (3.5-5.1); Sodium 136 mmol/L (137-145)
[2017-10-28] MEDS: levETIRAcetam 500 MG TAB PO SCH ×2 (08:34→20:52)
[2017-10-28] MEDS: POTASSIUM CHLORIDE ER 20 MEQ TAB.ER PO SCH (08:34)
[2017-10-28] MEDS: DULoxetine HCL 20 MG CAPSULE.DR PO SCH (08:34)
[2017-10-28] MEDS: PANTOPRAZOLE 40 MG TABLET PO SCH (08:35)
[2017-10-28] MEDS: CITALOPRAM HYDROBROMIDE 10 MG TAB PO SCH (08:35)
[2017-10-28] MEDS: DIVALPROEX 500 MG TABLET.DR PO SCH ×2 (08:35→20:52)
[2017-10-28] MEDS: ACETAMINOPHEN TAB 325 MG TAB PO SCH ×2 (08:35→20:51)
[2017-10-28] MEDS: ASPIRIN 325 MG TAB PO SCH (08:35)
[2017-10-28] MEDS: MULTIVITAMINS, THERA 1 EACH TAB PO SCH (08:36)
--- NOTE | 2017-10-28 15:44 | PN ---
PROGRESS NOTE DATE OF SERVICE: 10/28/2017 I am covering for Dr. Shane Peterson. This 62-year-old gentleman admitted with acute UTI, had ESBL E coli. No chest pain. No palpitations. No fever. EXAM: Alert and oriented x3. Pulse 63, blood pressure 121/82, respirations 16, temperature 97.2, pulse ox 99% on 3 L. HEENT: Conjunctivae normal. NECK: No jugular venous distention. CARDIOVASCULAR: S1, S2 RESPIRATORY: Breath sounds diminished in the bases. A few scattered rhonchi and crackles. ABDOMEN: Soft, nontender. LEGS: No edema. NERVOUS SYSTEM: Diffusely weak. LABS: WBC 4.2, hemoglobin 12.3. UA noted. ASSESSMENT: 1. Acute urinary tract infection with sepsis with gram-negative bacilli a ESBL E coli, failure of outpatient treatment. 2. Increased WBC. 3. Change in mental status, acute metabolic encephalopathy from sepsis. 4. History of recurrent seizures breakthrough seizures. 5. Atrial fibrillation. 6. History of dementia. 7. History of gastroesophageal reflux disease. 8. Hypertension. 9. History of degenerative joint disease. 10.History of pulmonary embolism. 11.History of paroxysmal atrial fibrillation. 12.History of benign prostatic hypertrophy. 13.History of degenerative joint disease. 14.Obesity with body mass index 50. 15.FULL CODE. RECOMMENDATIONS AND DISCUSSION: I recommend to continue current management and symptomatic treatment. Continue with antibiotics. Otherwise closely follow with Infectious Disease. Guarded prognosis because of multiple complex medical issues. Further recommendations to follow. MMODL / IJN: [id number] /
--- NOTE | 2017-10-28 17:05 | P.PN ---
Subjective Progress Note Date: 10/28/17 2-year-old male who has multiple medical troubles that includes coronary artery disease, obesity, seizures and dementia related to have difficulties with urinary tract infections in the past. The patient has difficulties with seizures and his poor mental status, apparently his mental status worsened he was transferred from [facility] facility for further evaluation. There was evidence of a fever to 101.1 and constantly workup for sepsis was initiated. With evidence of a positive urine culture with ESBL E. coli the infectious diseases consultation was requested. This 62-year-old gentleman who is of a large and obese build is comfortable at this time eating his dinner without difficulties. Upon questioning he has a very poor mental status and his speech content is very poor. 10/28/2017 the patient is comfortable sitting watching TV voices no complaints. Objective - Vital Signs Vital signs: Vital Signs Temp 98.2 F 10/28/17 14:03 Pulse 62 10/28/17 14:03 Resp 18 10/28/17 14:03 BP 138/81 10/28/17 14:03 Pulse Ox 97 10/28/17 14:03 Intake & Output 10/27/17 10/28/17 10/28/17 18:59 06:59 18:59 Intake Total 300 Output Total 1125 5000 1300 Balance -1125 -4700 -1300 Intake: Oral 300 Output: Urine 1125 5000 1300 Uretheral (Yanez) 2000 Other: Voiding Method Indwelling Catheter Indwelling Catheter Indwelling Catheter # Bowel Movements 2 1 1 - Exam 62-year-old male who is tolerated obese build is comfortable at this time HEENT: Anicteric conjunctiva are pink and moist nasal mucosa grossly intact without significant lesions, there is no thrush. Poor dentition Neck: The neck is supple without significant lymphadenopathy or thyromegaly. Lungs: Good bilateral air entry without significant crackles or wheezing. There is no significant bronchial sounds. There is no egophony or dullness. Heart: Irregularly irregular with an audible S1 and S2 no S3 soft S4 no murmur click or rub Abdomen: Obese, Positive bowel sounds soft and nontender without palpable masses or organomegaly. There was no guarding or rebound. Extremities: The upper extremities have excellent pulses they are symmetric, no significant petechiae or telangiectasia. No splinter hemorrhages were noted. Lower extremities have trace pedal edema however no ulcerations are seen Neuro: The patient is sitting upright having his dinner. He is awake and alert. He does have ability to converse but his thought quality is poor, when questions he [place], unaware that he stays in an extended care facility and is not oriented at this time to person place or time , - Labs CBC & Chem 7: 10/28/17 07:45 10/28/17 07:45 Labs: Abnormal Lab Results - Last 24 Hours (Table) 10/28/17 10/28/17 Range/Units 07:45 07:45 RBC 4.02 L (4.30-5.90) m/uL Hgb 12.3 L (13.0-17.5) gm/dL Hct 37.7 L (39.0-53.0) % Lymphocytes # 0.9 L (1.0-4.8) k/uL Sodium 136 L (137-145) mmol/L Glucose 115 H (74-99) mg/dL Microbiology - Last 24 Hours (Table) 10/25/17 13:17 Blood Culture - Preliminary Blood No Growth after 72 hours 10/25/17 13:40 Urine Culture - Final Urine,Catheterized Escherichia coli Laboratory Results WBC 4.5 k/uL (3.8-10.6) 10/28/17 07:45 RBC 4.02 m/uL (4.30-5.90) L 10/28/17 07:45 Hgb 12.3 gm/dL (13.0-17.5) L 10/28/17 07:45 Hct 37.7 % (39.0-53.0) L 10/28/17 07:45 MCV 93.9 fL (80.0-100.0) 10/28/17 07:45 MCH 30.5 pg (25.0-35.0) 10/28/17 07:45 MCHC 32.5 g/dL (31.0-37.0) 10/28/17 07:45 RDW 13.0 % (11.5-15.5) 10/28/17 07:45 Plt Count 294 k/uL (150-450) 10/28/17 07:45 Neutrophils % 62 % 10/28/17 07:45 Lymphocytes % 21 % 10/28/17 07:45 Monocytes % 9 % 10/28/17 07:45 Eosinophils % 5 % 10/28/17 07:45 Basophils % 0 % 10/28/17 07:45 Neutrophils # 2.8 k/uL (1.3-7.7) 10/28/17 07:45 Lymphocytes # 0.9 k/uL (1.0-4.8) L 10/28/17 07:45 Monocytes # 0.4 k/uL (0-1.0) 10/28/17 07:45 Eosinophils # 0.2 k/uL (0-0.7) 10/28/17 07:45 Basophils # 0.0 k/uL (0-0.2) 10/28/17 07:45 PT 10.6 sec (9.0-12.0) 10/25/17 13:17 INR 1.1 (<1.2) 10/25/17 13:17 APTT 26.2 sec (22.0-30.0) 10/25/17 13:17 Sodium 136 mmol/L (137-145) L 10/28/17 07:45 Potassium 4.4 mmol/L (3.5-5.1) 10/28/17 07:45 Chloride 101 mmol/L (98-107) 10/28/17 07:45 Carbon Dioxide 29 mmol/L (22-30) 10/28/17 07:45 Anion Gap 6 mmol/L 10/28/17 07:45 BUN 14 mg/dL (9-20) 10/28/17 07:45 Creatinine 0.70 mg/dL (0.66-1.25) 10/28/17 07:45 Est GFR (CKD-EPI)AfAm >90 (>60 ml/min/1.73 sqM) 10/28/17 07:45 Est GFR (CKD-EPI)NonAf >90 (>60 ml/min/1.73 sqM) 10/28/17 07:45 Glucose 115 mg/dL (74-99) H 10/28/17 07:45 Plasma Lactic Acid Timur 1.2 mmol/L (0.7-2.0) 10/25/17 13:17 Calcium 9.0 mg/dL (8.4-10.2) 10/28/17 07:45 Total Bilirubin 0.4 mg/dL (0.2-1.3) 10/25/17 13:17 AST 14 U/L (17-59) L 10/25/17 13:17 ALT 32 U/L (21-72) 10/25/17 13:17 Alkaline Phosphatase 56 U/L (38-126) 10/25/17 13:17 Total Protein 5.5 g/dL (6.3-8.2) L 10/25/17 13:17 Albumin 3.2 g/dL (3.5-5.0) L 10/25/17 13:17 Urine Color Yellow 10/25/17 13:40 Urine Appearance Cloudy (Clear) 10/25/17 13:40 Urine pH 6.0 (5.0-8.0) 10/25/17 13:40 Ur Specific [place] 1.019 (1.001-1.035) 10/25/17 13:40 Urine Protein 2+ (Negative) H 10/25/17 13:40 Urine Glucose (UA) Negative (Negative) 10/25/17 13:40 Urine Ketones Trace (Negative) H 10/25/17 13:40 Urine Blood Large (Negative) H 10/25/17 13:40 Urine Nitrite Negative (Negative) 10/25/17 13:40 Urine Bilirubin Negative (Negative) 10/25/17 13:40 Urine Urobilinogen <2.0 mg/dL (<2.0) 10/25/17 13:40 Ur Leukocyte Esterase Large (Negative) H 10/25/17 13:40 Urine RBC >182 /hpf (0-5) H 10/25/17 13:40 Urine WBC >182 /hpf (0-5) H 10/25/17 13:40 Urine WBC Clumps Occasional /hpf (None) H 10/25/17 13:40 Ur Squamous Epith Cells 6 /hpf (0-4) H 10/25/17 13:40 Urine Bacteria Many /hpf (None) H 10/25/17 13:40 Microbiology 10/25/17 13:17 Blood Blood Culture - Preliminary No Growth after 72 hours 10/25/17 13:40 Urine,Catheterized Urine Culture - Final Escherichia coli Assessment and Plan (1) Altered mental status Current Visit: Yes Status: Acute Code(s): R41.82 - ALTERED MENTAL STATUS, UNSPECIFIED SNOMED Code(s): 482775866 (2) UTI (urinary tract infection) Narrative/Plan: 62-year-old male with a history of dementia and seizures presents to hospital with further worsening of his mental status. Evaluation so showed evidence of a urinary tract infection and evidence of an E. coli ESBL infection. With this being isolated intravenous antibiotic therapy with carboplatinum has been started. Aware that he does have a history of seizures and is on antiepileptic medications which occasionally did have difficulties with carbapenem's. If is having monitored closely and there will be potential options for oral antibiotic therapy once he is more stable. Encourage fluid intake. The patient does have a urinary pH it's approaching neutral, if he is having difficulty with urinary infections he may respond well to urinary acidification to reduce urinary symptoms and infections. This can be initiated once infection has improved. 10/28/2017 patient seems to be doing relatively well this time. He is being treated with carbapenem without evidence of difficulties with his seizure activity. He seems comfortable. We'll work with the primary team the discharge planners as to a course of antibiotic therapy the time of discharge. There is a potential that trimethoprim sulfamethoxazole can be utilized. Current Visit: Yes Status: Acute Code(s): N39.0 - URINARY TRACT INFECTION, SITE NOT SPECIFIED SNOMED Code(s): 69780292 (3) Dementia Current Visit: No Status: Acute Code(s): F03.90 - UNSPECIFIED DEMENTIA WITHOUT BEHAVIORAL DISTURBANCE SNOMED Code(s): 56316404 (4) History of seizure disorder Current Visit: No Status: Acute Code(s): Z86.69 - PERSONAL HISTORY OF DIS OF THE NERVOUS SYS AND SENSE ORGANS SNOMED Code(s): 315016586
[2017-10-28] MEDS: ATORVASTATIN 10 MG TAB PO SCH (20:52)
[2017-10-28] MEDS: LISINOPRIL 20 MG TAB PO SCH (20:52)
[2017-10-28] MEDS: MELATONIN 5 MG TABLET PO SCH (20:52)
[2017-10-29] MEDS: MEROPENEM 1 GM in SODIUM CHLORIDE 0.9% 100 ML IVPB SCH ×4 (00:31→23:22)
[2017-10-29] MEDS: HEPARIN SODIUM,PORCINE 5,000 UNIT/ML 1 ML VIAL SQ SCH ×4 (00:32→23:24)
[2017-10-29] MEDS: FUROSEMIDE 40 MG TAB PO SCH ×2 (06:43→15:50)
[2017-10-29] MEDS: levETIRAcetam 500 MG TAB PO SCH ×2 (07:42→20:34)
[2017-10-29] MEDS: ACETAMINOPHEN TAB 325 MG TAB PO SCH ×2 (07:42→20:34)
[2017-10-29] MEDS: PANTOPRAZOLE 40 MG TABLET PO SCH (07:42)
[2017-10-29] MEDS: ASPIRIN 325 MG TAB PO SCH (07:42)
[2017-10-29] MEDS: POTASSIUM CHLORIDE ER 20 MEQ TAB.ER PO SCH (07:42)
[2017-10-29] MEDS: DULoxetine HCL 20 MG CAPSULE.DR PO SCH (07:43)
[2017-10-29] MEDS: CITALOPRAM HYDROBROMIDE 10 MG TAB PO SCH (07:43)
[2017-10-29] MEDS: MULTIVITAMINS, THERA 1 EACH TAB PO SCH (07:45)
[2017-10-29] MEDS: DIVALPROEX 500 MG TABLET.DR PO SCH ×2 (07:45→20:35)
[2017-10-29 10:23] LABS: Basophils % (A) 0 %; Eosinophils # (A) 0.3 k/uL (0-0.7); Eosinophils % (A) 5 %; HCT 39.7 % (39.0-53.0); HGB 12.8 gm/dL (13.0-17.5); Lymphocytes % (A) 18 %; MCH 30.2 pg (25.0-35.0); MCHC 32.3 g/dL (31.0-37.0); MCV 93.4 fL (80.0-100.0); Mean Platelet Volume 6.7; Monocytes # (A) 0.4 k/uL (0-1.0); Monocytes % (A) 7 %; Neutrophils # (A) 3.8 k/uL (1.3-7.7); Neutrophils % (A) 67 %; Platelet Count 306 k/uL (150-450); RBC 4.25 m/uL (4.30-5.90); RDW 13.1 % (11.5-15.5); WBC 5.6 k/uL (3.8-10.6)
[2017-10-29 10:34] LABS: Anion Gap 6 mmol/L; Blood Urea Nitrogen 15 mg/dL (9-20); Calcium 9.2 mg/dL (8.4-10.2); Carbon Dioxide 30 mmol/L (22-30); Chloride 100 mmol/L (98-107); Glucose 166 mg/dL (74-99); Potassium 4.3 mmol/L (3.5-5.1); Sodium 136 mmol/L (137-145)
--- NOTE | 2017-10-29 15:27 | PN ---
PROGRESS NOTE DATE OF SERVICE: 10/29/2017 I am covering for Dr. Shane Peterson. This 62-year-old gentleman who was admitted with UTI also ESBL E coli. No chest pain. No palpitations. No fever. Patient on IV antibiotics. Dr. Duncan is following the patient closely. EXAM: On exam: Alert and oriented x2. Pulse 69, blood pressure 119/80, respirations 16, temperature 98.6, pulse ox 97% on 3. L HEENT: Conjunctivae normal. NECK: No jugular venous distention. CARDIOVASCULAR: S1, S2. RESPIRATORY: Breath sounds diminished in the bases. No rhonchi, no crackles. ABDOMEN: Soft, nontender. No mass palpable. LEGS: No edema. NERVOUS SYSTEM: Diffusely weak. LABS: WBC 5.2, hemoglobin 12.9, sodium 136. ASSESSMENT: 1. Acute urinary tract infection with sepsis and gram-negative asked with ESBL E coli, failure for outpatient treatment. 2. Increased WBC. 3. Change in mental status acute metabolic encephalopathy from sepsis. 4. History of recurrent seizures, breakthrough seizures. 5. Atrial fibrillation. 6. History of dementia. 7. History of gastroesophageal reflux disease. 8. Hypertension. 9. History of degenerative joint disease. 10.History of pulmonary embolism. 11.History of paroxysmal atrial fibrillation. 12.History of benign prostatic hypertrophy. 13.History of degenerative joint disease. 14.Obesity with body mass index of 50. 15.FULL CODE. RECOMMENDATIONS AND DISCUSSION I recommend to continue with current medications, continue with monitoring and symptomatic treatment. Otherwise at this time I recommend continue with current medications. Continue symptomatic treatment. Continue the antibiotics. Closely follow with Dr. Peterson. Will follow tomorrow. Further recommendations to follow. MMODL / IJN: [id number] /
[2017-10-29] MEDS: ATORVASTATIN 10 MG TAB PO SCH (20:34)
[2017-10-29] MEDS: MELATONIN 5 MG TABLET PO SCH (20:35)
[2017-10-29] MEDS: LISINOPRIL 20 MG TAB PO SCH (20:35)
[2017-10-30] MEDS: FUROSEMIDE 40 MG TAB PO SCH ×2 (06:33→14:58)
[2017-10-30] MEDS: ACETAMINOPHEN TAB 325 MG TAB PO SCH ×2 (07:25→20:22)
[2017-10-30] MEDS: HEPARIN SODIUM,PORCINE 5,000 UNIT/ML 1 ML VIAL SQ SCH ×3 (07:26→23:40)
[2017-10-30] MEDS: MEROPENEM 1 GM in SODIUM CHLORIDE 0.9% 100 ML IVPB SCH ×3 (07:28→23:40)
[2017-10-30] MEDS: CITALOPRAM HYDROBROMIDE 10 MG TAB PO SCH (07:29)
[2017-10-30] MEDS: ASPIRIN 325 MG TAB PO SCH (07:29)
[2017-10-30] MEDS: DIVALPROEX 500 MG TABLET.DR PO SCH ×2 (07:29→20:22)
[2017-10-30] MEDS: MULTIVITAMINS, THERA 1 EACH TAB PO SCH (07:30)
[2017-10-30] MEDS: POTASSIUM CHLORIDE ER 20 MEQ TAB.ER PO SCH (07:30)
[2017-10-30] MEDS: PANTOPRAZOLE 40 MG TABLET PO SCH (07:30)
[2017-10-30] MEDS: levETIRAcetam 500 MG TAB PO SCH ×2 (07:30→20:22)
[2017-10-30] MEDS: DULoxetine HCL 20 MG CAPSULE.DR PO SCH (07:30)
[2017-10-30 08:52] LABS: Basophils % (A) 1 %; Eosinophils # (A) 0.4 k/uL (0-0.7); Eosinophils % (A) 5 %; HCT 42.4 % (39.0-53.0); Lymphocytes # (A) 1.3 k/uL (1.0-4.8); Lymphocytes % (A) 18 %; MCH 31.3 pg (25.0-35.0); MCHC 32.9 g/dL (31.0-37.0); MCV 95.2 fL (80.0-100.0); Mean Platelet Volume 6.3; Monocytes # (A) 0.4 k/uL (0-1.0); Monocytes % (A) 6 %; Neutrophils # (A) 5.1 k/uL (1.3-7.7); Neutrophils % (A) 69 %; Platelet Count 324 k/uL (150-450); RBC 4.46 m/uL (4.30-5.90); RDW 13.3 % (11.5-15.5); WBC 7.3 k/uL (3.8-10.6)
[2017-10-30 09:03] LABS: Anion Gap 11 mmol/L; Blood Urea Nitrogen 12 mg/dL (9-20); Calcium 9.5 mg/dL (8.4-10.2); Carbon Dioxide 27 mmol/L (22-30); Chloride 99 mmol/L (98-107); Glucose 150 mg/dL (74-99); Potassium 4.1 mmol/L (3.5-5.1); Sodium 137 mmol/L (137-145)
--- NOTE | 2017-10-30 12:25 | P.PN ---
Subjective Patient resting in bed. Continues with Yanez catheter. Dictation by Dr. Duncan indicated of possible changed to Bactrim Objective - Vital Signs Vital signs: Vital Signs Temp 98.1 F 10/30/17 06:38 Pulse 61 10/30/17 06:38 Resp 20 10/30/17 06:38 BP 119/70 10/30/17 06:38 Pulse Ox 98 10/30/17 07:45 Intake & Output 10/29/17 10/30/17 10/30/17 18:59 06:59 18:59 Output Total 2725 2600 Balance -2725 -2600 Output: Urine 2725 2600 Other: Voiding Method Indwelling Catheter Indwelling Catheter Indwelling Catheter # Bowel Movements 0 - Constitutional General appearance: Present: morbidly obese - EENT Eyes: Present: PERRLA Ears: bilateral: normal - Neck Neck: Present: normal ROM - Respiratory Respiratory: bilateral: CTA - Cardiovascular Rhythm: irregularly irregular - Gastrointestinal General gastrointestinal: Present: soft - Genitourinary Genitourinary Comment(s): Yanez catheter - Neurologic Neurologic: Present: CNII-XII intact - Musculoskeletal Musculoskeletal: Present: generalized weakness - Psychiatric Psychiatric Comment(s): Awake and alert pleasantly confused - Labs CBC & Chem 7: 10/30/17 08:28 10/30/17 08:28 Labs: Abnormal Lab Results - Last 24 Hours (Table) 10/30/17 Range/Units 08:28 Glucose 150 H (74-99) mg/dL Microbiology - Last 24 Hours (Table) 10/25/17 13:17 Blood Culture - Preliminary Blood No Growth after 96 hours Assessment and Plan Plan: Assessment Acute urinary tract infection with sepsis E. coli Mental status changes acute metabolic encephalopathy from sepsis History of seizures Atrial fibrillation chronic Dementia GERD Hypertension Hyperlipidemia Degenerative joint disease History of pulmonary embolism History of BPH Obesity BMI 50 Plan Continue consultation with the urology and infectious disease patient changed to meropenem Hopeful transfer back to [facility] on Bactrim
--- NOTE | 2017-10-30 16:10 | P.DS ---
Providers Date of admission: 10/25/17 13:55 Expected date of discharge: 10/30/17 Attending physician: Shane Peterson Consults: 10/25/17 17:31 Consult Physician Routine Consulting Provider: Jasen Blackburn Consult Reason/Comments: hematuria Do you want consulting provider notified?: Yes 10/27/17 14:42 Consult Physician Routine Consulting Provider: Leonel Duncan Consult Reason/Comments: uti. urine culture positive for esbl Do you want consulting provider notified?: Yes Primary care physician: [facility] Hospital Course: [age] male was brought into the emergency room with a UTI failed outpatient therapy. Patient was found to be septic. Patient was treated by urology had Yanez catheter. Infectious diseases consulted in treating patient is improved. Yanez catheter was removed patient able to urinate. Patient stable for transfer back to [facility]. When we started on back b.i.d. for 10 days Assessment acute urinary tract infection with sepsis failed outpatient therapy E. coli mental status changes with metabolic encephalopathy from sepsis seizures atrial fibrillation dementia GERD hypertension hyperlipidemia degenerative joint disease history of pulmonary embolism history of BPH obesity with BMI of 50 Plan transferred to [facility] oral Bactrim and home medication Plan - Discharge Summary Discharge Rx Participant: No New Discharge Prescriptions: New Sulfamethox-Tmp 800-160Mg [Bactrim DS 800-160 mg] 1 tab PO Q12HR #28 tab Continue Multivitamins, Thera [Multivitamin (formulary)] 1 tab PO DAILY Acetaminophen [Tylenol] 650 mg PO BID Lisinopril [Prinivil] 20 mg PO HS Divalproex [Depakote] 1,500 mg PO BID@0900,2100 Aspirin EC [Ecotrin] 325 mg PO DAILY tablet. Nitroglycerin 0.4 mg SL Q5M PRN PRN Reason: Chest Pain Mag Hydrox/Al Hydrox/Simeth [Maalox] 30 ml PO Q4H PRN PRN Reason: Gi Upset Albuterol Nebulized [Ventolin Nebulized] 2.5 mg INHALATION RT-Q4H PRN PRN Reason: Shortness Of Breath levETIRAcetam [Keppra] 500 mg PO Q12HR Furosemide [Lasix] 40 mg PO BID@0600,1400 Melatonin 5 mg PO HS Potassium Chloride [Klor-Con 20] 20 meq PO DAILY DULoxetine HCL [Cymbalta] 20 mg PO DAILY Citalopram Hydrobromide [CeleXA] 10 mg PO DAILY Atorvastatin [Lipitor] 10 mg PO HS Dimethicone/Zinc Oxide [Inzo Zinc Oxide Barrier Cream] 1 applic TOPICAL TID PRN PRN Reason: INCONTINENCE Discontinued guaiFENesin SYRUP 100MG/5ML [Robitussin] 200 mg PO Q4H PRN PRN Reason: Cough Cefuroxime Axetil [Ceftin] 500 mg PO BID Discharge Medication List Acetaminophen [Tylenol] 650 mg PO BID 04/11/14 [History] Divalproex [Depakote] 1,500 mg PO BID@0900,2100 04/11/14 [History] Lisinopril [Prinivil] 20 mg PO HS 04/11/14 [History] Multivitamins, Thera [Multivitamin (formulary)] 1 tab PO DAILY 04/11/14 [History ] Aspirin EC [Ecotrin] 325 mg PO DAILY tablet. 02/10/15 [Rx] Albuterol Nebulized [Ventolin Nebulized] 2.5 mg INHALATION RT-Q4H PRN 10/25/17 [ History] Atorvastatin [Lipitor] 10 mg PO HS 10/25/17 [History] Citalopram Hydrobromide [CeleXA] 10 mg PO DAILY 10/25/17 [History] DULoxetine HCL [Cymbalta] 20 mg PO DAILY 10/25/17 [History] Dimethicone/Zinc Oxide [Inzo Zinc Oxide Barrier Cream] 1 applic TOPICAL TID PRN 10/25/17 [History] Furosemide [Lasix] 40 mg PO BID@0600,1400 10/25/17 [History] Mag Hydrox/Al Hydrox/Simeth [Maalox] 30 ml PO Q4H PRN 10/25/17 [History] Melatonin 5 mg PO HS 10/25/17 [History] Nitroglycerin 0.4 mg SL Q5M PRN 10/25/17 [History] Potassium Chloride [Klor-Con 20] 20 meq PO DAILY 10/25/17 [History] levETIRAcetam [Keppra] 500 mg PO Q12HR 10/25/17 [History] Sulfamethox-Tmp 800-160Mg [Bactrim DS 800-160 mg] 1 tab PO Q12HR #28 tab [Rx] Follow up Appointment(s)/Referral(s): Davon Tam MD [Primary Care Provider] - 1-2 days Jorge Arboleda MD [STAFF PHYSICIAN] - 1 Week Patient Instructions/Handouts: Urinary Tract Infection in Men (DC)
[2017-10-30] MEDS: ATORVASTATIN 10 MG TAB PO SCH (20:22)
[2017-10-30] MEDS: MELATONIN 5 MG TABLET PO SCH (20:23)
[2017-10-30] MEDS: LISINOPRIL 20 MG TAB PO SCH (20:23)
--- NOTE | 2017-10-30 22:14 | P.PN ---
Subjective Progress Note Date: 10/30/17 2-year-old male who has multiple medical troubles that includes coronary artery disease, obesity, seizures and dementia related to have difficulties with urinary tract infections in the past. The patient has difficulties with seizures and his poor mental status, apparently his mental status worsened he was transferred from extended care facility for further evaluation. There was evidence of a fever to 101.1 and constantly workup for sepsis was initiated. With evidence of a positive urine culture with ESBL E. coli the infectious diseases consultation was requested. This 62-year-old gentleman who is of a large and obese build is comfortable at this time eating his dinner without difficulties. Upon questioning he has a very poor mental status and his speech content is very poor. 10/28/2017 the patient is comfortable sitting watching TV voices no complaints. 10/30/2017 patient is with some improvement nurse plans for transfer to extended care facility today. Objective - Vital Signs Vital signs: Vital Signs Temp 98.7 F 10/30/17 15:00 Pulse 72 10/30/17 15:00 Resp 16 10/30/17 15:00 BP 120/76 10/30/17 15:00 Pulse Ox 98 10/30/17 15:27 Intake & Output 10/30/17 10/30/17 10/31/17 06:59 18:59 06:59 Output Total 2600 1300 Balance -2600 -1300 Output: Urine 2600 1300 Other: Voiding Method Indwelling Catheter Indwelling Catheter # Voids 1 - Exam 62-year-old male who is tolerated obese build is comfortable at this time HEENT: Anicteric conjunctiva are pink and moist nasal mucosa grossly intact without significant lesions, there is no thrush. Poor dentition Neck: The neck is supple without significant lymphadenopathy or thyromegaly. Lungs: Good bilateral air entry without significant crackles or wheezing. There is no significant bronchial sounds. There is no egophony or dullness. Heart: Irregularly irregular with an audible S1 and S2 no S3 soft S4 no murmur click or rub Abdomen: Obese, Positive bowel sounds soft and nontender without palpable masses or organomegaly. There was no guarding or rebound. Extremities: The upper extremities have excellent pulses they are symmetric, no significant petechiae or telangiectasia. No splinter hemorrhages were noted. Lower extremities have trace pedal edema however no ulcerations are seen Neuro: The patient is sitting upright having his dinner. He is awake and alert. He does have ability to converse but his thought quality is poor, when questions he [place], unaware that he stays in an extended care facility and is not oriented at this time to person place or time , - Labs CBC & Chem 7: 10/30/17 08:28 10/30/17 08:28 Labs: Abnormal Lab Results - Last 24 Hours (Table) 10/30/17 Range/Units 08:28 Glucose 150 H (74-99) mg/dL Microbiology - Last 24 Hours (Table) 10/25/17 13:17 Blood Culture - Preliminary Blood No Growth after 120 hours Laboratory Results WBC 7.3 k/uL (3.8-10.6) 10/30/17 08:28 RBC 4.46 m/uL (4.30-5.90) 10/30/17 08:28 Hgb 14.0 gm/dL (13.0-17.5) 10/30/17 08:28 Hct 42.4 % (39.0-53.0) 10/30/17 08:28 MCV 95.2 fL (80.0-100.0) 10/30/17 08:28 MCH 31.3 pg (25.0-35.0) 10/30/17 08:28 MCHC 32.9 g/dL (31.0-37.0) 10/30/17 08:28 RDW 13.3 % (11.5-15.5) 10/30/17 08:28 Plt Count 324 k/uL (150-450) 10/30/17 08:28 Neutrophils % 69 % 10/30/17 08:28 Lymphocytes % 18 % 10/30/17 08:28 Monocytes % 6 % 10/30/17 08:28 Eosinophils % 5 % 10/30/17 08:28 Basophils % 1 % 10/30/17 08:28 Neutrophils # 5.1 k/uL (1.3-7.7) 10/30/17 08:28 Lymphocytes # 1.3 k/uL (1.0-4.8) 10/30/17 08:28 Monocytes # 0.4 k/uL (0-1.0) 10/30/17 08:28 Eosinophils # 0.4 k/uL (0-0.7) 10/30/17 08:28 Basophils # 0.0 k/uL (0-0.2) 10/30/17 08:28 PT 10.6 sec (9.0-12.0) 10/25/17 13:17 INR 1.1 (<1.2) 10/25/17 13:17 APTT 26.2 sec (22.0-30.0) 10/25/17 13:17 Sodium 137 mmol/L (137-145) 10/30/17 08:28 Potassium 4.1 mmol/L (3.5-5.1) 10/30/17 08:28 Chloride 99 mmol/L (98-107) 10/30/17 08:28 Carbon Dioxide 27 mmol/L (22-30) 10/30/17 08:28 Anion Gap 11 mmol/L 10/30/17 08:28 BUN 12 mg/dL (9-20) 10/30/17 08:28 Creatinine 0.72 mg/dL (0.66-1.25) 10/30/17 08:28 Est GFR (CKD-EPI)AfAm >90 (>60 ml/min/1.73 sqM) 10/30/17 08:28 Est GFR (CKD-EPI)NonAf >90 (>60 ml/min/1.73 sqM) 10/30/17 08:28 Glucose 150 mg/dL (74-99) H 10/30/17 08:28 Plasma Lactic Acid [place] 1.2 mmol/L (0.7-2.0) 10/25/17 13:17 Calcium 9.5 mg/dL (8.4-10.2) 10/30/17 08:28 Total Bilirubin 0.4 mg/dL (0.2-1.3) 10/25/17 13:17 AST 14 U/L (17-59) L 10/25/17 13:17 ALT 32 U/L (21-72) 10/25/17 13:17 Alkaline Phosphatase 56 U/L (38-126) 10/25/17 13:17 Total Protein 5.5 g/dL (6.3-8.2) L 10/25/17 13:17 Albumin 3.2 g/dL (3.5-5.0) L 10/25/17 13:17 Urine Color Yellow 10/25/17 13:40 Urine Appearance Cloudy (Clear) 10/25/17 13:40 Urine pH 6.0 (5.0-8.0) 10/25/17 13:40 Ur Specific [place] 1.019 (1.001-1.035) 10/25/17 13:40 Urine Protein 2+ (Negative) H 10/25/17 13:40 Urine Glucose (UA) Negative (Negative) 10/25/17 13:40 Urine Ketones Trace (Negative) H 10/25/17 13:40 Urine Blood Large (Negative) H 10/25/17 13:40 Urine Nitrite Negative (Negative) 10/25/17 13:40 Urine Bilirubin Negative (Negative) 10/25/17 13:40 Urine Urobilinogen <2.0 mg/dL (<2.0) 10/25/17 13:40 Ur Leukocyte Esterase Large (Negative) H 10/25/17 13:40 Urine RBC >182 /hpf (0-5) H 10/25/17 13:40 Urine WBC >182 /hpf (0-5) H 10/25/17 13:40 Urine WBC Clumps Occasional /hpf (None) H 10/25/17 13:40 Ur Squamous Epith Cells 6 /hpf (0-4) H 10/25/17 13:40 Urine Bacteria Many /hpf (None) H 10/25/17 13:40 Microbiology 10/25/17 13:17 Blood Blood Culture - Preliminary No Growth after 120 hours 10/25/17 13:40 Urine,Catheterized Urine Culture - Final Escherichia coli Assessment and Plan (1) Altered mental status Current Visit: Yes Status: Acute Code(s): R41.82 - ALTERED MENTAL STATUS, UNSPECIFIED SNOMED Code(s): 362966070 (2) UTI (urinary tract infection) Narrative/Plan: 62-year-old male with a history of dementia and seizures presents to hospital with further worsening of his mental status. Evaluation so showed evidence of a urinary tract infection and evidence of an E. coli ESBL infection. With this being isolated intravenous antibiotic therapy with carbepenum has been started. Aware that he does have a history of seizures and is on antiepileptic medications which occasionally did have difficulties with carbapenem's. If is having monitored closely and there will be potential options for oral antibiotic therapy once he is more stable. Encourage fluid intake. The patient does have a urinary pH it's approaching neutral, if he is having difficulty with urinary infections he may respond well to urinary acidification to reduce urinary symptoms and infections. This can be initiated once infection has improved. 10/28/2017 patient seems to be doing relatively well this time. He is being treated with carbapenem without evidence of difficulties with his seizure activity. He seems comfortable. We'll work with the primary team the discharge planners as to a course of antibiotic therapy the time of discharge. There is a potential that trimethoprim sulfamethoxazole can be utilized. 10/30/2017 patient is improved. There is been no further seizure activity. The patient is without fevers or chills. As noted the urine culture has evidence of E. coli ESBL but fortunately it is susceptible to trimethoprim sulfamethoxazole. We'll Alter Antibiotic Therapy to This One Double Strength Twice per Day the patient will likely be discharged to extended care facility in the morning. Current Visit: Yes Status: Acute Code(s): N39.0 - URINARY TRACT INFECTION, SITE NOT SPECIFIED SNOMED Code(s): 83376014 (3) Dementia Current Visit: No Status: Acute Code(s): F03.90 - UNSPECIFIED DEMENTIA WITHOUT BEHAVIORAL DISTURBANCE SNOMED Code(s): 64336726 (4) History of seizure disorder Current Visit: No Status: Acute Code(s): Z86.69 - PERSONAL HISTORY OF DIS OF THE NERVOUS SYS AND SENSE ORGANS SNOMED Code(s): 390722540
[2017-10-30] MEDS ORDERED: MD COMMUNICATION TO PHARMACY 1 EACH MISC PO PRN (22:15)
[2017-10-31 06:09] VITALS: BP 129/85; PULSE 66; RESP 16; TEMP 97.1
[2017-10-31] MEDS: FUROSEMIDE 40 MG TAB PO SCH (06:32)
[2017-10-31] MEDS: PANTOPRAZOLE 40 MG TABLET PO SCH (07:33)
[2017-10-31] MEDS: POTASSIUM CHLORIDE ER 20 MEQ TAB.ER PO SCH (07:33)
[2017-10-31] MEDS: ASPIRIN 325 MG TAB PO SCH (07:33)
[2017-10-31] MEDS: CITALOPRAM HYDROBROMIDE 10 MG TAB PO SCH (07:34)
[2017-10-31] MEDS: DULoxetine HCL 20 MG CAPSULE.DR PO SCH (07:34)
[2017-10-31] MEDS: DIVALPROEX 500 MG TABLET.DR PO SCH (07:34)
[2017-10-31] MEDS: HEPARIN SODIUM,PORCINE 5,000 UNIT/ML 1 ML VIAL SQ SCH (07:34)
[2017-10-31] MEDS: levETIRAcetam 500 MG TAB PO SCH (07:34)
[2017-10-31] MEDS: ACETAMINOPHEN TAB 325 MG TAB PO SCH (07:38)
[2017-10-31 08:59] LABS: Basophils % (A) 0 %; Eosinophils # (A) 0.4 k/uL (0-0.7); Eosinophils % (A) 3 %; HCT 46.9 % (39.0-53.0); HGB 15.1 gm/dL (13.0-17.5); Lymphocytes # (A) 1.4 k/uL (1.0-4.8); Lymphocytes % (A) 14 %; MCH 30.1 pg (25.0-35.0); MCHC 32.2 g/dL (31.0-37.0); MCV 93.8 fL (80.0-100.0); Mean Platelet Volume 6.8; Monocytes # (A) 0.4 k/uL (0-1.0); Monocytes % (A) 4 %; Neutrophils # (A) 7.6 k/uL (1.3-7.7); Neutrophils % (A) 76 %; Platelet Count 376 k/uL (150-450); RBC 5.01 m/uL (4.30-5.90); RDW 13.2 % (11.5-15.5); WBC 10.1 k/uL (3.8-10.6)
[2017-10-31] MEDS ORDERED: SULFAMETHOX-TMP 800-160MG 1 EACH TAB PO SCH (09:00)
[2017-10-31 09:14] LABS: Anion Gap 9 mmol/L; Blood Urea Nitrogen 16 mg/dL (9-20); Calcium 9.5 mg/dL (8.4-10.2); Carbon Dioxide 30 mmol/L (22-30); Chloride 98 mmol/L (98-107); Glucose 142 mg/dL (74-99); Potassium 4.8 mmol/L (3.5-5.1); Sodium 137 mmol/L (137-145)
== END 2017-10-31 10:52 | DRG 871 ==
LOC: EC 12:56 → 5MS5E 13:55 → 4MS4W 15:31
PROVIDERS: ADMIT Family Medicine; ATTEND Family Medicine
DX: A41.51 Sepsis due to Escherichia coli [E. coli] (principal); G93.41 Metabolic encephalopathy; N39.0 Urinary tract infection, site not specified; Z68.43 Body mass index [BMI] 50.0-59.9, adult; I48.2 Chronic atrial fibrillation; K21.9 Gastro-esophageal reflux disease without esophagitis; R65.20 Severe sepsis without septic shock; I10 Essential (primary) hypertension; E78.5 Hyperlipidemia, unspecified; E66.01 Morbid (severe) obesity due to excess calories; F03.90 Unspecified dementia, unspecified severity, without behavioral disturbance, psychotic disturbance, mood disturbance, and anxiety; G40.909 Epilepsy, unspecified, not intractable, without status epilepticus; H91.90 Unspecified hearing loss, unspecified ear; I25.10 Atherosclerotic heart disease of native coronary artery without angina pectoris; M19.90 Unspecified osteoarthritis, unspecified site; N40.1 Benign prostatic hyperplasia with lower urinary tract symptoms; N39.498 Other specified urinary incontinence; Z16.12 Extended spectrum beta lactamase (ESBL) resistance; Z86.711 Personal history of pulmonary embolism; Z79.82 Long term (current) use of aspirin; Z79.899 Other long term (current) drug therapy; Z80.9 Family history of malignant neoplasm, unspecified; Z82.5 Family history of asthma and other chronic lower respiratory diseases; Z87.440 Personal history of urinary (tract) infections; Z87.891 Personal history of nicotine dependence; Z87.820 Personal history of traumatic brain injury; Z86.718 Personal history of other venous thrombosis and embolism
CPT/HCPCS: 36415; 71045; 80048; 80053; 81001; 83605; 85025; 85610; 85730; 87040; 87077; 87086; 87186; 93005; 94760; 96360; 96361; 96365; 96366; 96375; 99285

== ENCOUNTER 2020-03-20 01:54 | Emergency (ER) | payer MEDICARE, OTHER ==
[2020-03-20] MEDS ORDERED: SODIUM CHLORIDE 0.9% 500 ML 500 ML IV STA (02:27)
[2020-03-20] MEDS ORDERED: SODIUM CHLORIDE 0.9% 1,000 ML IV STA ×2 (02:27)
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
[2020-03-20] MEDS ORDERED: LORazepam 2 MG/ML INJ IV STA (02:37)
--- NOTE | 2020-03-20 02:56 | XR ---
EXAM: XR Chest, 1 View CLINICAL HISTORY: ITS.REASON XR Reason: Suspected COVID-19 pneumonia TECHNIQUE: Frontal view of the chest. COMPARISON: Chest x-ray dated 10/25/2017 FINDINGS: Lungs: No focal consolidation. Pleural space: Unremarkable. Heart: Enlargement of the cardiomediastinal silhouette which may be secondary low lung volumes. Mediastinum: See above. Bones/joints: Unremarkable. IMPRESSION: 1. Enlargement of the cardiomediastinal silhouette which may be secondary low lung volumes. 2. No focal consolidation.
[2020-03-20 03:14] LABS: Basophils % (A) 1 %; Eosinophils # (A) 0.2 k/uL (0-0.7); Eosinophils % (A) 2 %; HCT 43.9 % (39.0-53.0); HGB 14.7 gm/dL (13.0-17.5); Lymphocytes # (A) 1.6 k/uL (1.0-4.8); Lymphocytes % (A) 18 %; MCH 32.9 pg (25.0-35.0); MCHC 33.5 g/dL (31.0-37.0); MCV 98.4 fL (80.0-100.0); Mean Platelet Volume 8.4; Monocytes # (A) 0.6 k/uL (0-1.0); Monocytes % (A) 7 %; Neutrophils # (A) 6.2 k/uL (1.3-7.7); Neutrophils % (A) 71 %; Platelet Count 277 k/uL (150-450); RBC 4.46 m/uL (4.30-5.90); RDW 13.3 % (11.5-15.5); WBC 8.7 k/uL (3.8-10.6)
[2020-03-20 03:25] LABS: ALT 22 U/L (4-49); AST 26 U/L (17-59); African American GFR (CKD) >90 (>60 ml/min/1.73 sqM); Albumin 2.3 g/dL (3.5-5.0); Alkaline Phosphatase 49 U/L (38-126); Anion Gap 6 mmol/L; Blood Urea Nitrogen 42 mg/dL (9-20); C Reactive Protein 77.9 mg/L (<10.0); Calcium 6.6 mg/dL (8.4-10.2); Carbon Dioxide 16 mmol/L (22-30); Chloride 116 mmol/L (98-107); Creatine Kinase 99 U/L (55-170); Glucose 100 mg/dL (74-99); LDH 599 U/L (313-618); Magnesium 1.8 mg/dL (1.6-2.3); Non-African American GFR(CKD) 86 (>60 ml/min/1.73 sqM); Phosphorus 3.5 mg/dL (2.5-4.5); Potassium 3.8 mmol/L (3.5-5.1); Sodium 138 mmol/L (137-145); Total Bilirubin 0.4 mg/dL (0.2-1.3); Total Protein 4.8 g/dL (6.3-8.2)
[2020-03-20 03:31] LABS: Hyaline Casts,Urine 169 /lpf (0-2); Mucus,Urine Occasional /hpf; RBC,Urine <1 /hpf (0-5); Squamous Epithelial Cell,Urine 1 /hpf (0-4); WBC,Urine 1 /hpf (0-5)
[2020-03-20 03:32] LABS: INR 1.1 (<1.2); Partial Thromboplastin Time 29.2 sec (22.0-30.0); Prothrombin Time 11.4 sec (9.0-12.0)
[2020-03-20 03:47] LABS: Appearance,Urine Clear (Clear); Color,Urine Yellow; Specific Gravity,Urine 1.027 (1.001-1.035)
[2020-03-20 03:48] LABS: Bilirubin,Urine Negative (Negative); Blood,Urine Negative (Negative); Glucose,Urine (UA) Negative (Negative); Ketones,Urine Negative (Negative); Protein,Urine Trace (Negative)
[2020-03-20 03:49] LABS: Leukocyte Esterase,Urine Negative (Negative); Nitrite,Urine Negative (Negative)
[2020-03-20 03:50] VITALS: RESP 20
[2020-03-20 04:28] VITALS: BP 123/80; PULSE 89; TEMP 98.9
== END 2020-03-20 04:44 | disposition home or self-care (01) ==
LOC: EC 01:54
DX: B34.2 Coronavirus infection, unspecified (principal); F03.90 Unspecified dementia, unspecified severity, without behavioral disturbance, psychotic disturbance, mood disturbance, and anxiety; E86.0 Dehydration; G40.909 Epilepsy, unspecified, not intractable, without status epilepticus; I10 Essential (primary) hypertension; I48.91 Unspecified atrial fibrillation; E78.5 Hyperlipidemia, unspecified; K21.9 Gastro-esophageal reflux disease without esophagitis; Z79.899 Other long term (current) drug therapy; Z88.5 Allergy status to narcotic agent; Z86.718 Personal history of other venous thrombosis and embolism; Z86.711 Personal history of pulmonary embolism
CPT/HCPCS: 36415; 93005; 83880; 80053; 82550; 83605; 83615; 83735; 84100; 84484; 85025; 85610; 85730; 86140; 81003; 87040; 71045; 99285; 96374; 96361; J2060

== ENCOUNTER 2021-10-15 00:39 | Emergency (ER) | payer MEDICARE, OTHER ==
[2021-10-15 01:08] VITALS: RESP 18; TEMP 98
--- NOTE | 2021-10-15 01:29 | XR ---
EXAMINATION TYPE: XR chest 1V portable DATE OF EXAM: 10/15/2021 COMPARISON: 03/20/2020 HISTORY: Altered mental status TECHNIQUE: FINDINGS: Heart is normal. Thoracic aorta is atheromatous. Lungs are clear of infiltrate. No heart fa ilure. There are no hilar masses. Bony thorax is intact IMPRESSION: Atheromatous aorta. No active cardiopulmonary disease. No change.
--- NOTE | 2021-10-15 01:34 | CT ---
EXAMINATION TYPE: CT brain wo con DATE OF EXAM: 10/15/2021 COMPARISON: 08/30/2016 HISTORY: AMS. states he has pain all over his body. history of seizures. prior on PACS CT DLP: 1231.4 mGycm Automated exposure control for dose reduction was used. Images obtained of the brain with no contrast. There is diffuse cerebral atrophy. There is no mass effect or midline shift. No evidence of intracran ial hemorrhage. There is hypodensity in the periventricular white matter. There is enlargement of the ventricles. Calvarium is intact. There is normal aeration of the mastoid sinuses. IMPRESSION: Cerebral atrophy. Chronic small vessel ischemia. Hydrocephalus. No acute intracranial abnormality. No change compared to old exam.
[2021-10-15 02:27] LABS: Basophils # (A) 0.1 k/uL (0-0.2); Basophils % (A) 1 %; Eosinophils # (A) 0.1 k/uL (0-0.7); Eosinophils % (A) 1 %; HGB 17.5 gm/dL (13.0-17.5); Lymphocytes # (A) 2.1 k/uL (1.0-4.8); Lymphocytes % (A) 21 %; MCH 33.3 pg (25.0-35.0); MCHC 33.7 g/dL (31.0-37.0); MCV 98.7 fL (80.0-100.0); Mean Platelet Volume 8.1; Monocytes # (A) 0.9 k/uL (0-1.0); Monocytes % (A) 9 %; Neutrophils # (A) 6.6 k/uL (1.3-7.7); Neutrophils % (A) 67 %; Platelet Count 317 k/uL (150-450); RBC 5.27 m/uL (4.30-5.90); RDW 13.6 % (11.5-15.5)
[2021-10-15 02:35] LABS: INR 1.1 (<1.2); Partial Thromboplastin Time 27.6 sec (22.0-30.0); Prothrombin Time 11.7 sec (9.0-12.0)
[2021-10-15 03:13] LABS: ALT 20 U/L (4-49); AST 36 U/L (17-59); African American GFR (CKD) >90 (>60 ml/min/1.73 sqM); Alkaline Phosphatase 51 U/L (38-126); Anion Gap 11 mmol/L; Blood Urea Nitrogen 34 mg/dL (9-20); Calcium 9.6 mg/dL (8.4-10.2); Carbon Dioxide 26 mmol/L (22-30); Chloride 96 mmol/L (98-107); Glucose 147 mg/dL (74-99); Non-African American GFR(CKD) >90 (>60 ml/min/1.73 sqM); Sodium 133 mmol/L (137-145); Total Protein 6.7 g/dL (6.3-8.2)
[2021-10-15 03:19] LABS: Potassium 4.9 mmol/L (3.5-5.1)
[2021-10-15 06:55] LABS: Appearance,Urine Clear (Clear); Bilirubin,Urine Negative (Negative); Blood,Urine Negative (Negative); Color,Urine Yellow; Glucose,Urine (UA) Negative (Negative); Ketones,Urine Trace (Negative); Leukocyte Esterase,Urine Negative (Negative); Nitrite,Urine Negative (Negative); PH, Urine 5.5 (5.0-8.0); Protein,Urine Negative (Negative); Specific Gravity,Urine 1.025 (1.001-1.035)
[2021-10-15] MEDS ORDERED: SODIUM CHLORIDE 0.9% 500 ML 500 ML IV STA (06:59)
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
[2021-10-15 08:25] VITALS: BP 96/60; PULSE 92
== END 2021-10-15 08:25 | disposition home or self-care (01) ==
LOC: EC 00:39
DX: E86.0 Dehydration (principal); I10 Essential (primary) hypertension; I48.91 Unspecified atrial fibrillation; E78.5 Hyperlipidemia, unspecified; M19.90 Unspecified osteoarthritis, unspecified site; K21.9 Gastro-esophageal reflux disease without esophagitis; H91.90 Unspecified hearing loss, unspecified ear; Z79.84 Long term (current) use of oral hypoglycemic drugs; Z79.899 Other long term (current) drug therapy; Z79.01 Long term (current) use of anticoagulants; Z79.82 Long term (current) use of aspirin
CPT/HCPCS: 36415; 70450; 71045; 80053; 81003; 82140; 84484; 85025; 85610; 85730; 87040; 93005; 99285

== ENCOUNTER 2021-10-23 10:29 | Inpatient (IN) | payer MEDICARE, OTHER ==
[2021-10-23] MEDS ORDERED: SODIUM CHLORIDE 0.9% 500 ML 500 ML IV STA (10:41)
[2021-10-23] MEDS ORDERED: SODIUM CHLORIDE 0.9% 1,000 ML IV STA (10:41)
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
[2021-10-23 11:21] LABS: Basophils # (A) 0.1 k/uL (0-0.2); Basophils % (A) 0 %; Eosinophils # (A) 0.2 k/uL (0-0.7); Eosinophils % (A) 1 %; HCT 47.6 % (39.0-53.0); HGB 15.5 gm/dL (13.0-17.5); Lymphocytes # (A) 1.8 k/uL (1.0-4.8); Lymphocytes % (A) 10 %; MCH 31.9 pg (25.0-35.0); MCHC 32.5 g/dL (31.0-37.0); MCV 98.2 fL (80.0-100.0); Mean Platelet Volume 7.8; Monocytes # (A) 1.4 k/uL (0-1.0); Monocytes % (A) 8 %; Neutrophils # (A) 14.6 k/uL (1.3-7.7); Neutrophils % (A) 80 %; Platelet Count 334 k/uL (150-450); RBC 4.85 m/uL (4.30-5.90); WBC 18.3 k/uL (3.8-10.6)
[2021-10-23 11:29] LABS: INR 1.2 (<1.2); Partial Thromboplastin Time 31.6 sec (22.0-30.0); Prothrombin Time 12.2 sec (9.0-12.0)
[2021-10-23 11:38] LABS: ALT 14 U/L (4-49); AST 20 U/L (17-59); African American GFR (CKD) >90 (>60 ml/min/1.73 sqM); Albumin 3.3 g/dL (3.5-5.0); Alkaline Phosphatase 63 U/L (38-126); Anion Gap 11 mmol/L; Blood Urea Nitrogen 17 mg/dL (9-20); Calcium 9.2 mg/dL (8.4-10.2); Carbon Dioxide 21 mmol/L (22-30); Chloride 102 mmol/L (98-107); Glucose 150 mg/dL (74-99); Magnesium 1.6 mg/dL (1.6-2.3); Non-African American GFR(CKD) >90 (>60 ml/min/1.73 sqM); Potassium 4.6 mmol/L (3.5-5.1); Sodium 134 mmol/L (137-145); Total Bilirubin 0.6 mg/dL (0.2-1.3); Total Protein 5.9 g/dL (6.3-8.2)
[2021-10-23 11:41] LABS: Appearance,Urine Clear (Clear); Bilirubin,Urine Negative (Negative); Blood,Urine Moderate (Negative); Color,Urine Yellow; Glucose,Urine (UA) Negative (Negative); Ketones,Urine 1+ (Negative); Leukocyte Esterase,Urine Negative (Negative); Mucus,Urine Rare /hpf; Nitrite,Urine Negative (Negative); PH, Urine 5.5 (5.0-8.0); Protein,Urine Trace (Negative); RBC,Urine 75 /hpf (0-5); Specific Gravity,Urine 1.021 (1.001-1.035); Squamous Epithelial Cell,Urine 1 /hpf (0-4); WBC,Urine 2 /hpf (0-5)
--- NOTE | 2021-10-23 11:56 | XR ---
EXAMINATION TYPE: XR chest 1V DATE OF EXAM: 10/23/2021 11:46 AM COMPARISON: Chest radiographs from 10/15/2021, 03/20/2020 TECHNIQUE: XR chest 1V Frontal view of the chest. CLINICAL INDICATION:Male, 66 years old with history of difficulty breathing; FINDINGS: Patient is rotated which limits evaluation. Lungs/Pleura: There is no evidence of pleural effusion, focal consolidation, or pneumothorax. Pulmonary vascularity: Unremarkable. Heart/mediastinum: Stable enlarged cardiomediastinal silhouette. Musculoskeletal: No acute osseous pa thology. IMPRESSION: No acute cardiopulmonary disease/process. No significant change from prior examination. Stable prominence of the cardiomediastinal silhouette which is accentuated by patient rotation.
[2021-10-23] MEDS ORDERED: cefTRIAXone IN SWFI 1,000 MG/10 ML SYRINGE IVP STA (14:20)
[2021-10-23] MEDS ORDERED: CEPHALEXIN 500 MG CAP PO STA (14:53)
[2021-10-23] MEDS ORDERED: NALOXONE 0.4 MG/ML 1 ML VIAL IV PRN (15:18)
[2021-10-23] MEDS ORDERED: ACETAMINOPHEN TAB 325 MG TAB PO PRN (15:18)
[2021-10-23] MEDS ORDERED: ALBUTEROL NEBULIZED 2.5 MG/3 ML INHALATION PRN (15:19)
[2021-10-23] MEDS ORDERED: NITROGLYCERIN SL TABS 0.4 MG TAB SUBLINGUAL PRN (15:19)
[2021-10-23] MEDS ORDERED: MAG HYDROX/AL HYDROX/SIMETH 30 ML CUP PO PRN (15:19)
[2021-10-23] MEDS: HEPARIN SODIUM,PORCINE/PF 5,000 UNIT/0.5 ML SYRINGE SQ SCH (16:50)
[2021-10-23] MEDS: SODIUM CHLORIDE 0.9% 1,000 ML IV SCH ×2 (16:51→23:11)
[2021-10-23] MEDS ORDERED: lisinopriL 20 MG TAB PO SCH (21:00)
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
[2021-10-23] MEDS: DIVALPROEX 500 MG TABLET.DR PO SCH (21:46)
[2021-10-23] MEDS: ATORVASTATIN 10 MG TAB PO SCH (21:46)
[2021-10-23] MEDS: MELATONIN 5 MG TABLET PO SCH (21:46)
[2021-10-23] MEDS ORDERED: AZITHROMYCIN 500 MG TAB PO SCH (22:00)
[2021-10-23] MEDS ORDERED: VALPROIC ACID ORAL SOLN 250 MG/5 ML CUP PO SCH (22:06)
[2021-10-23] MEDS: levETIRAcetam 500 MG TAB PO SCH (23:20)
[2021-10-23] MEDS: VALPROIC ACID ORAL SOLN 250 MG/5 ML CUP PO SCH (23:24)
[2021-10-24] MEDS: DIVALPROEX 500 MG TABLET.DR PO SCH (00:07)
[2021-10-24] MEDS: HEPARIN SODIUM,PORCINE/PF 5,000 UNIT/0.5 ML SYRINGE SQ SCH ×4 (00:14→23:30)
[2021-10-24] MEDS: MAGNESIUM SULFATE-D5W PMX 1 GM in DEXTROSE/WATER 1 100ML.BAG IVPB SCH ×2 (00:15→01:26)
[2021-10-24] MEDS ORDERED: SODIUM CHLORIDE 0.9% 500 ML 1,000 ML IV ONE (02:41)
[2021-10-24] MEDS ORDERED: NALOXONE 0.4 MG/ML 1 ML VIAL IV PRN (03:13)
--- NOTE | 2021-10-24 03:18 | XR ---
EXAMINATION TYPE: XR chest 1V portable DATE OF EXAM: 10/24/2021 COMPARISON: Yesterday HISTORY: Respiratory distress TECHNIQUE: Single view FINDINGS: There is no heart failure nor confluent pneumonic infiltrate. Thoracic aorta is atheromatou s. No pleural effusion. Heart size is normal. IMPRESSION: No active cardiopulmonary disease. No change.
[2021-10-24 03:29] LABS: Glucose,Whole Blood 173 mg/dL (70-110)
[2021-10-24 03:29] LABS: Basophils % (A) 0 %; Eosinophils # (A) 0.1 k/uL (0-0.7); Eosinophils % (A) 0 %; HCT 41.2 % (39.0-53.0); HGB 13.3 gm/dL (13.0-17.5); Lymphocytes % (A) 10 %; MCH 32.6 pg (25.0-35.0); MCHC 32.2 g/dL (31.0-37.0); MCV 101.3 fL (80.0-100.0); Macrocytosis Slight; Mean Platelet Volume 8.2; Monocytes # (A) 1.5 k/uL (0-1.0); Monocytes % (A) 8 %; Neutrophils # (A) 15.9 k/uL (1.3-7.7); Neutrophils % (A) 81 %; Platelet Count 362 k/uL (150-450); RBC 4.07 m/uL (4.30-5.90); RDW 13.2 % (11.5-15.5); WBC 19.7 k/uL (3.8-10.6)
[2021-10-24 03:38] LABS: African American GFR (CKD) >90 (>60 ml/min/1.73 sqM); Anion Gap 10 mmol/L; Blood Urea Nitrogen 18 mg/dL (9-20); Calcium 8.8 mg/dL (8.4-10.2); Carbon Dioxide 22 mmol/L (22-30); Chloride 101 mmol/L (98-107); Glucose 190 mg/dL (74-99); Magnesium 2.4 mg/dL (1.6-2.3); Non-African American GFR(CKD) 87 (>60 ml/min/1.73 sqM); Sodium 133 mmol/L (137-145)
[2021-10-24] MEDS: NOREPINEPHRINE 4 MG in SODIUM CHLORIDE 0.9% 250 ML IV SCH ×8 (03:39→23:30)
[2021-10-24 04:05] LABS: Amorphous Sediment,Urine Occasional /hpf; Appearance,Urine Cloudy (Clear); Bacteria,Urine Rare /hpf; Bilirubin,Urine Negative (Negative); Blood,Urine Large (Negative); Color,Urine Yellow; Glucose,Urine (UA) Negative (Negative); Hyaline Casts,Urine 10 /lpf (0-2); Ketones,Urine Trace (Negative); Leukocyte Esterase,Urine Small (Negative); Mucus,Urine Occasional /hpf; Nitrite,Urine Negative (Negative); PH, Urine 5.5 (5.0-8.0); Protein,Urine 1+ (Negative); RBC,Urine >182 /hpf (0-5); Specific Gravity,Urine 1.021 (1.001-1.035); Squamous Epithelial Cell,Urine 1 /hpf (0-4); Urobilinogen,Urine <2.0 mg/dL (<2.0); WBC,Urine 26 /hpf (0-5)
[2021-10-24] MEDS: PIPERACILLIN-TAZOBACTAM 3.375 GM in SODIUM CHLORIDE 0.9% 100 ML IVPB SCH ×4 (05:34→23:30)
[2021-10-24] MEDS ORDERED: FUROSEMIDE 40 MG TAB PO SCH (06:00)
[2021-10-24 06:01] LABS: Glucose,Whole Blood 168 mg/dL (70-110)
[2021-10-24 06:20] LABS: Basophils # (A) 0.1 k/uL (0-0.2); Basophils % (A) 0 %; Eosinophils # (A) 0.1 k/uL (0-0.7); Eosinophils % (A) 0 %; HCT 47.1 % (39.0-53.0); HGB 14.5 gm/dL (13.0-17.5); Lymphocytes # (A) 2.1 k/uL (1.0-4.8); Lymphocytes % (A) 10 %; MCH 31.1 pg (25.0-35.0); MCHC 30.7 g/dL (31.0-37.0); MCV 101.3 fL (80.0-100.0); Macrocytosis Slight; Mean Platelet Volume 8.1; Monocytes # (A) 1.9 k/uL (0-1.0); Monocytes % (A) 9 %; Neutrophils # (A) 17.3 k/uL (1.3-7.7); Neutrophils % (A) 80 %; Platelet Count 344 k/uL (150-450); RBC 4.65 m/uL (4.30-5.90); RDW 13.3 % (11.5-15.5); WBC 21.7 k/uL (3.8-10.6)
[2021-10-24 06:26] LABS: African American GFR (CKD) >90 (>60 ml/min/1.73 sqM); Anion Gap 7 mmol/L; Blood Urea Nitrogen 17 mg/dL (9-20); Calcium 8.6 mg/dL (8.4-10.2); Carbon Dioxide 23 mmol/L (22-30); Chloride 106 mmol/L (98-107); Glucose 181 mg/dL (74-99); Magnesium 2.1 mg/dL (1.6-2.3); Non-African American GFR(CKD) >90 (>60 ml/min/1.73 sqM); Phosphorus 3.9 mg/dL (2.5-4.5); Potassium 3.8 mmol/L (3.5-5.1); Sodium 136 mmol/L (137-145)
[2021-10-24] MEDS ORDERED: Potassium Replacement Protocol 1 EACH MISC MISCELLANE PRN (06:28)
[2021-10-24] MEDS: POTASSIUM CHLORIDE 10 MEQ in WATER FOR INJECTION 1 100ML.BAG IVPB SCH ×2 (06:40→07:56)
[2021-10-24] MEDS ORDERED: cefTRIAXone IN SWFI 1,000 MG/10 ML SYRINGE IVP SCH (09:00)
[2021-10-24] MEDS ORDERED: levETIRAcetam IV 500 MG in SODIUM CHLORIDE 0.9% 100 ML IVPB SCH ×4 (09:15)
[2021-10-24] MEDS: MULTIVITAMINS, THERA 1 EACH TAB PO SCH (09:41)
[2021-10-24] MEDS: CITALOPRAM HYDROBROMIDE 10 MG TAB PO SCH (09:41)
[2021-10-24] MEDS: ASPIRIN 325 MG TAB PO SCH (09:41)
[2021-10-24] MEDS: VALPROIC ACID ORAL SOLN 250 MG/5 ML CUP PO SCH ×2 (09:41→19:29)
[2021-10-24] MEDS: POTASSIUM CHLORIDE ER 20 MEQ TAB.ER PO SCH (09:41)
[2021-10-24] MEDS: DULoxetine HCL 20 MG CAPSULE.DR PO SCH (09:41)
[2021-10-24] MEDS: SODIUM CHLORIDE 0.9% 1,000 ML IV SCH ×4 (09:42→23:30)
[2021-10-24] MEDS: levETIRAcetam IV 1,000 MG in SALINE 1 100ML.BAG IVPB SCH ×2 (10:09→20:25)
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
[2021-10-24 11:42] LABS: Glucose,Whole Blood 156 mg/dL (70-110)
[2021-10-24] MEDS: levETIRAcetam 500 MG TAB PO SCH (16:59)
[2021-10-24 17:10] LABS: Glucose,Whole Blood 147 mg/dL (70-110)
[2021-10-24] MEDS: ATORVASTATIN 10 MG TAB PO SCH (19:28)
[2021-10-24] MEDS: MELATONIN 5 MG TABLET PO SCH (19:29)
[2021-10-24 23:39] LABS: Glucose,Whole Blood 148 mg/dL (70-110)
[2021-10-25] MEDS: ACETAMINOPHEN IV (For NPO) 1,000 MG in EMPTY BAG 1 BAG IVPB PRN ×2 (00:35→12:17)
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
[2021-10-25 05:53] LABS: Basophils % (A) 0 %; Eosinophils # (A) 0.1 k/uL (0-0.7); Eosinophils % (A) 1 %; HCT 41.2 % (39.0-53.0); Lymphocytes # (A) 1.6 k/uL (1.0-4.8); Lymphocytes % (A) 13 %; MCH 32.4 pg (25.0-35.0); MCHC 31.5 g/dL (31.0-37.0); MCV 102.8 fL (80.0-100.0); Macrocytosis Slight; Mean Platelet Volume 8.3; Monocytes % (A) 8 %; Neutrophils % (A) 75 %; Platelet Count 253 k/uL (150-450); RBC 4.01 m/uL (4.30-5.90); RDW 13.8 % (11.5-15.5); WBC 11.9 k/uL (3.8-10.6)
[2021-10-25] MEDS: PIPERACILLIN-TAZOBACTAM 3.375 GM in SODIUM CHLORIDE 0.9% 100 ML IVPB SCH ×3 (05:54→17:57)
[2021-10-25 06:03] LABS: Glucose,Whole Blood 130 mg/dL (70-110)
[2021-10-25 06:12] LABS: African American GFR (CKD) >90 (>60 ml/min/1.73 sqM); Anion Gap 5 mmol/L; Blood Urea Nitrogen 10 mg/dL (9-20); Calcium 8.4 mg/dL (8.4-10.2); Carbon Dioxide 20 mmol/L (22-30); Chloride 113 mmol/L (98-107); Glucose 138 mg/dL (74-99); Magnesium 1.8 mg/dL (1.6-2.3); Non-African American GFR(CKD) >90 (>60 ml/min/1.73 sqM); Phosphorus 2.9 mg/dL (2.5-4.5); Potassium 3.8 mmol/L (3.5-5.1); Sodium 138 mmol/L (137-145)
[2021-10-25] MEDS: NOREPINEPHRINE 4 MG in SODIUM CHLORIDE 0.9% 250 ML IV SCH ×2 (06:37→08:16)
[2021-10-25] MEDS: POTASSIUM CHLORIDE 10 MEQ in WATER FOR INJECTION 1 100ML.BAG IVPB SCH ×2 (06:42→07:58)
[2021-10-25] MEDS: HEPARIN SODIUM,PORCINE/PF 5,000 UNIT/0.5 ML SYRINGE SQ SCH (07:58)
[2021-10-25] MEDS ORDERED: MAGNESIUM SULFATE-D5W PMX 1 GM in DEXTROSE/WATER 1 100ML.BAG IVPB ONE (08:00)
[2021-10-25] MEDS: VALPROIC ACID ORAL SOLN 250 MG/5 ML CUP PO SCH ×2 (08:02→21:33)
[2021-10-25] MEDS: MULTIVITAMINS, THERA 1 EACH TAB PO SCH (08:03)
[2021-10-25] MEDS: levETIRAcetam IV 1,000 MG in SALINE 1 100ML.BAG IVPB SCH ×2 (08:03→21:34)
[2021-10-25] MEDS: CITALOPRAM HYDROBROMIDE 10 MG TAB PO SCH (08:03)
[2021-10-25] MEDS: SODIUM CHLORIDE 0.9% 1,000 ML IV SCH ×2 (08:03→15:47)
[2021-10-25] MEDS: POTASSIUM CHLORIDE ER 20 MEQ TAB.ER PO SCH (08:03)
[2021-10-25] MEDS: DULoxetine HCL 20 MG CAPSULE.DR PO SCH (08:03)
[2021-10-25] MEDS: ASPIRIN 325 MG TAB PO SCH (08:08)
[2021-10-25 11:19] LABS: Glucose,Whole Blood 136 mg/dL (70-110)
--- NOTE | 2021-10-25 11:35 | P.PN ---
Subjective Progress Note Date: 10/25/21 Principal diagnosis: Sepsis and septic shock 66-year-old male patient got transferred to the intensive care unit because of hypotension. The patient is a [facility] resident and he has multiple medical problems and comorbidities. He was found to have some increased shortness of breath and edema in lower extremities. He was recently given a higher dose of Lasix at a dose of 80 mg twice a day and this was started approximately a week ago. The patient was having also some diminished level of alertness above and beyond his baseline for that reason the patient was brought into the hospital and overnight the patient got transferred to the intensive care unit because of hypotension. The patient had a chest x-ray showed no acute cardiopulmonary process. EKG shows some sinus tachycardia. His initial blood work 3.4 and subsequently dropped down to 1.6. His current white cell count is at 21 with a hemoglobin of 14.5 and a platelet count of 344. Sodium is at 136. BUN is at 70 with a creatinine of 0.8. He is currently on normal saline at the rate of 130 mL an hour. Note that overnight, the patient received 2 L IV fluid bolus. He is currently on 2 L O2 nasal cannula. He was also started on norepinephrine which is currently running at 0.2 mics per kilogram per minute. The patient will be started on IV Zosyn as an empiric antibiotic coverage. No reported aspiration. He has had previous urinary tract infection with E. coli and this was an ESBL producing bacteria. The current UA was abnormal and a Yanez catheter was inserted and the patient had cloudy urine output. No seizure activity has been noted. His proBNP level is 766. Troponins were negative Patient was evaluated today on 10/25/21, remains in the ICU, patient seems to be very comfortable, he is on room air with O2 saturations 94%, he is off norepinephrine this morning. Remains on 0.9 normal saline at 13 0 mL per hour. Patient does not seem to be in any distress. Cultures are so far nondiagnostic. Exact source of his sepsis is not clear yet, however considering the patient is hemodynamically stable, I plan to transfer the patient out of the ICU to regular medical floor. Patient remains empirically on antibiotics, and I am recommending a midline placement in this patient. WBC count is 11.9 hemoglobin is 13.0 electrolytes are normal renal profile is normal bicarb is 20. Blood cultures and urine cultures are negative so far. Objective - Vital Signs Vital signs: Vital Signs Temp 99.1 F 10/25/21 08:00 Pulse 84 10/25/21 10:00 Resp 24 10/25/21 10:00 BP 106/77 10/25/21 10:00 Pulse Ox 94 L 10/25/21 10:00 FiO2 Intake & Output 10/24/21 10/25/21 10/25/21 18:59 06:59 18:59 Intake Total 010.663 8621.188 1175.235 Output Total 515 665 220 Balance 470.516 1282.188 955.235 Weight 150.5 kg 150.5 kg Intake: IV 1430 950 0.9@130mls/hr 1430 650 Piperacillin-Tazobactam 3 100 .375 gm In Sodium Chloride 0.9% 100 ml @ 25 mls/hr IVPB Q6HR [facility] Rx# :[id number] Potassium Chloride 10 meq 200 In Water For Injection 1 100ml.bag @ 100 mls/hr IVPB Q1H [facility] Rx#: [id number] Intake, IV Titration 318.423 6400.188 225.235 Amount ACETAMINOPHEN IV (For NPO 100 ) 1,000 mg In Empty Bag 1 bag @ 400 mls/hr IVPB Q6HR [facility] Rx#:[id number] Magnesium Sulfate-D5w Pmx 100 1 gm In Dextrose/Water 1 100ml.bag @ 100 mls/hr IVPB ONCE ONE Rx#: [id number] Norepinephrine 4 mg In 710.228 718.188 25.235 Sodium Chloride 0.9% 250 ml @ 0.05 MCG/KG/MIN 25. 491 mls/hr IV .Q9H58M [facility] Rx#:[id number] Piperacillin-Tazobactam 3 100 .375 gm In Sodium Chloride 0.9% 100 ml @ 25 mls/hr IVPB Q6HR [facility] Rx# :[id number] levETIRAcetam IV 1,000 mg 100 100 In Saline 1 100ml.bag @ 400 mls/hr IVPB Q12HR [facility] Rx#:[id number] Output: Urine 515 665 220 Other: Voiding Method Indwelling Catheter Indwelling Catheter Indwelling Catheter - Exam Physical Exam: Revealed 66-year-old white male in no distress. On room air. Head: Atraumatic, normocephalic. HEENT:[Neck is supple.] [No neck masses.] [No thyromegaly.] [No JVD.] Chest: [Clear throughout, no crackles, no rhonchi, no wheezes.] Cardiac Exam: [Normal S1 and S2, no S3 gallop, no murmur.] Abdomen: [Soft, nontender, no megaly, no rebound, no guarding, normal bowel sounds.] Extremities: [No clubbing, no edema, no cyanosis.] Neurological Exam: Patient is a bit lethargic, slow, slightly confused, otherwise no gross focal deficits. Psychiatric: Normal mood, normal affect, confused. Skin: Evidence of stage II ulcers noted on the left ankle medially and on sacrum. - Labs CBC & Chem 7: 10/25/21 05:24 10/25/21 05:24 Labs: Abnormal Lab Results - Last 24 Hours (Table) 10/24/21 10/24/21 10/24/21 Range/Units 09:26 11:40 17:08 WBC (3.8-10.6) k/uL RBC (4.30-5.90) m/uL MCV (80.0-100.0) fL Neutrophils # (1.3-7.7) k/uL Chloride (98-107) mmol/L Carbon Dioxide (22-30) mmol/L Creatinine (0.66-1.25) mg/dL Glucose (74-99) mg/dL POC Glucose (mg/dL) 156 H 147 H (70-110) mg/dL Procalcitonin 0.26 H (0.02-0.09) ng/mL 10/24/21 10/25/21 10/25/21 Range/Units 23:36 05:24 05:24 WBC 11.9 H (3.8-10.6) k/uL RBC 4.01 L (4.30-5.90) m/uL MCV 102.8 H (80.0-100.0) fL Neutrophils # 9.0 H (1.3-7.7) k/uL Chloride 113 H (98-107) mmol/L Carbon Dioxide 20 L (22-30) mmol/L Creatinine 0.43 L (0.66-1.25) mg/dL Glucose 138 H (74-99) mg/dL POC Glucose (mg/dL) 148 H (70-110) mg/dL Procalcitonin (0.02-0.09) ng/mL 10/25/21 10/25/21 Range/Units 06:02 11:07 WBC (3.8-10.6) k/uL RBC (4.30-5.90) m/uL MCV (80.0-100.0) fL Neutrophils # (1.3-7.7) k/uL Chloride (98-107) mmol/L Carbon Dioxide (22-30) mmol/L Creatinine (0.66-1.25) mg/dL Glucose (74-99) mg/dL POC Glucose (mg/dL) 130 H 136 H (70-110) mg/dL Procalcitonin (0.02-0.09) ng/mL Microbiology - Last 24 Hours (Table) 10/24/21 03:02 Blood Culture - Preliminary Blood No Growth after 24 hours 10/23/21 10:52 Blood Culture - Preliminary Blood No Growth after 24 hours 10/23/21 10:52 Blood Culture - Preliminary Blood No Growth after 24 hours 10/24/21 03:30 Urine Culture - Preliminary Urine,Voided Assessment and Plan Assessment: Impression: Sepsis/septic shock exact source is not clear, cultures are pending. History of ESBL E. coli infection Difficulty swallowing, specific diet was recommended. Dementia. History of closed head injury. Essential hypertension. Degenerative joint disease. History of pulmonary embolism and DVT. Obesity. Paroxysmal atrial fibrillation. History of seizure disorder. Stage II ulceration in the inner left ankle area and coccyx. Recommendation: Continue IV fluids. Discontinue norepinephrine. Continue Zosyn and adjust based on the final cultures if available. Transfer patient out of the ICU to a regular medical floor. Continue to hold diuretics. Hold blood pressure medications. Resume eliquis, as taken at home. DO NOT RESUSCITATE/DO NOT INTUBATE CODE STATUS. We'll continue to follow. Time with Patient: Less than 30
[2021-10-25] MEDS: APIXABAN 5 MG TAB PO SCH ×2 (12:09→21:34)
--- NOTE | 2021-10-25 16:56 | PN ---
PROGRESS NOTE DATE OF SERVICE: 10/25/2021 This 66-year-old gentleman who was admitted with septic shock and possible UTI is being closely monitored at this time. Speech Pathology is also evaluating the patient. Patient is monitored in the ICU. Patient is on broad-spectrum IV antibiotics. Past medical history reviewed. Review of systems could not be taken; the patient is confused. CURRENT MEDICATIONS: Reviewed. They include albuterol, apixaban. The rest of the medication and doses are reviewed. PHYSICAL EXAMINATION: Pulse is 87, blood pressure 87/60, respirations 12. HEENT: Conjunctivae normal. NECK: No jugular venous distention. CARDIOVASCULAR: S1, S2 muffled. RESPIRATION: Breath sounds diminished at the bases. A few scattered rhonchi. ABDOMEN: Soft, obese. LEGS: No edema. No swelling. NERVOUS SYSTEM: Diffusely weak. LABS: Reviewed. ASSESSMENT: 1. Acute urinary tract infection with Escherichia coli, ESBL with septic shock, present on admission. 2. Dysphagia. 3. Dehydration. 4. History of pulmonary emboli and deep vein thromboses. 5. Multiple medical issues. RECOMMENDATIONS AND DISCUSSION: I recommend to continue current medications, continue with the monitoring, symptomatic treatment. Otherwise at this time we will continue with the broad-spectrum IV antibiotics. Closely follow with Pulmonary. Infectious disease evaluation. The cultures are negative so far. I would also recommend speech pathology consultation and a modified barium swallow. Further recommendations to follow. Discussed with the family at the bedside. KASSIE / SOCORRON: [id number] /
[2021-10-25 18:08] LABS: Glucose,Whole Blood 149 mg/dL (70-110)
[2021-10-25] MEDS: ATORVASTATIN 10 MG TAB PO SCH (21:34)
[2021-10-25] MEDS: MELATONIN 5 MG TABLET PO SCH (21:34)
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
[2021-10-26] MEDS: PIPERACILLIN-TAZOBACTAM 3.375 GM in SODIUM CHLORIDE 0.9% 100 ML IVPB SCH ×4 (00:37→19:11)
[2021-10-26] MEDS: SODIUM CHLORIDE 0.9% 1,000 ML IV SCH ×3 (00:38→11:36)
[2021-10-26 06:13] LABS: ALT 22 U/L (4-49); AST 28 U/L (17-59); African American GFR (CKD) >90 (>60 ml/min/1.73 sqM); Albumin 2.2 g/dL (3.5-5.0); Alkaline Phosphatase 50 U/L (38-126); Anion Gap 6 mmol/L; Blood Urea Nitrogen 10 mg/dL (9-20); Calcium 8.2 mg/dL (8.4-10.2); Carbon Dioxide 22 mmol/L (22-30); Chloride 112 mmol/L (98-107); Glucose 118 mg/dL (74-99); Non-African American GFR(CKD) >90 (>60 ml/min/1.73 sqM); Sodium 140 mmol/L (137-145); Total Bilirubin 0.4 mg/dL (0.2-1.3); Total Protein 4.4 g/dL (6.3-8.2)
[2021-10-26 06:27] LABS: Basophils % (A) 0 %; Eosinophils # (A) 0.2 k/uL (0-0.7); Eosinophils % (A) 2 %; HCT 36.1 % (39.0-53.0); HGB 11.8 gm/dL (13.0-17.5); Lymphocytes # (A) 1.3 k/uL (1.0-4.8); Lymphocytes % (A) 17 %; MCH 33.2 pg (25.0-35.0); MCHC 32.8 g/dL (31.0-37.0); MCV 101.2 fL (80.0-100.0); Macrocytosis Slight; Mean Platelet Volume 8.5; Monocytes # (A) 0.5 k/uL (0-1.0); Monocytes % (A) 7 %; Neutrophils # (A) 5.6 k/uL (1.3-7.7); Neutrophils % (A) 72 %; Platelet Count 320 k/uL (150-450); RBC 3.57 m/uL (4.30-5.90); RDW 13.9 % (11.5-15.5); WBC 7.8 k/uL (3.8-10.6)
[2021-10-26 06:44] LABS: Glucose,Whole Blood 111 mg/dL (70-110)
[2021-10-26] MEDS: ASPIRIN 325 MG TAB PO SCH (08:21)
[2021-10-26] MEDS: CHOLECALCIFEROL 25 MCG (1000 IU) TABLET PO SCH (08:21)
[2021-10-26] MEDS: DULoxetine HCL 20 MG CAPSULE.DR PO SCH (08:21)
[2021-10-26] MEDS: APIXABAN 5 MG TAB PO SCH ×2 (08:21→20:04)
[2021-10-26] MEDS: MULTIVITAMINS, THERA 1 EACH TAB PO SCH (08:22)
[2021-10-26] MEDS: POTASSIUM CHLORIDE ER 20 MEQ TAB.ER PO SCH (08:22)
[2021-10-26] MEDS: IOPAMIDOL CONTRAST (ORAL USE) VIAL PO PRN ×2 (08:23→10:04)
[2021-10-26] MEDS: VALPROIC ACID ORAL SOLN 250 MG/5 ML CUP PO SCH ×2 (08:23→20:04)
[2021-10-26] MEDS: CITALOPRAM HYDROBROMIDE 10 MG TAB PO SCH (08:51)
[2021-10-26] MEDS: levETIRAcetam IV 1,000 MG in SALINE 1 100ML.BAG IVPB SCH ×2 (08:51→20:04)
--- NOTE | 2021-10-26 11:01 | CT ---
EXAMINATION TYPE: CT abdomen pelvis w con CT DLP: 3179 mGycm, Automated exposure control for dose reduction was used. DATE OF EXAM: 10/26/2021 10:50 AM COMPARISON: CTA chest abdomen and pelvis 02/05/2015 CLINICAL INDICATION:Male, 66 years old with history of sepsis; TECHNIQUE: Standard CT of the abdomen and pelvis following the administration of 100 cc of Isovue 3 00 IV contrast material and oral contrast. Coronal and sagittal reformats were performed. FINDINGS: Motion degraded examination. LOWER CHEST: Unremarkable ABDOMEN LIVER: Diffusely hypoattenuating parenchyma. No suspicious lesion. GALLBLADDER AND BILE DUCTS: Unremarkable. PANCREAS: Unremarkable. SPLEEN: Unremarkable. ADRENAL GLANDS: Unremarkable. KIDNEYS AND URETERS: No hydronephrosis or renal calculi. No perinephric fluid collections. Minimal bi lateral nonspecific perinephric fat stranding. Left mid kidney cortical subcentimeter lesion which is too small to characterize. PELVIS BLADDER: Nondistended with Yanez catheter in place. REPRODUCTIVE: Prostate is enlarged in size measuring 6.0 cm in transverse dimension. ABDOMEN & PELVIS STOMACH AND BOWEL: Stomach and duodenum are unremarkable. No focal wall thickening or surrounding inf lammatory changes. The appendix is within normal limits. Mild amount of stool is present within the d istal colon. No evidence of bowel obstruction. PERITONEUM: No evidence of pneumoperitoneum or free fluid. Presacral fat stranding. VASCULATURE: No evidence of aortic aneurysm. MUSCULOSKELETAL: No acute osseous abnormalities. Mild multilevel degenerative changes of visualized s pine. LYMPH NODES: No gross evidence for lymphadenopathy. SOFT TISSUE/ABDOMINAL WALL: Bilateral gynecomastia. Anasarca. IMPRESSION: 1. No acute abdominal/pelvic process. 2. Hepatic steatosis. 3. Prostatomegaly.
[2021-10-26] MEDS: ACETAMINOPHEN IV (For NPO) 1,000 MG in EMPTY BAG 1 BAG IVPB SCH ×2 (11:35→19:08)
--- NOTE | 2021-10-26 11:35 | P.PN ---
Subjective Progress Note Date: 10/26/21 Principal diagnosis: Sepsis and septic shock 66-year-old male patient got transferred to the intensive care unit because of hypotension. The patient is a [facility] resident and he has multiple medical problems and comorbidities. He was found to have some increased shortness of breath and edema in lower extremities. He was recently given a higher dose of Lasix at a dose of 80 mg twice a day and this was started approximately a week ago. The patient was having also some diminished level of alertness above and beyond his baseline for that reason the patient was brought into the hospital and overnight the patient got transferred to the intensive care unit because of hypotension. The patient had a chest x-ray showed no acute cardiopulmonary process. EKG shows some sinus tachycardia. His initial blood work 3.4 and subsequently dropped down to 1.6. His current white cell count is at 21 with a hemoglobin of 14.5 and a platelet count of 344. Sodium is at 136. BUN is at 70 with a creatinine of 0.8. He is currently on normal saline at the rate of 130 mL an hour. Note that overnight, the patient received 2 L IV fluid bolus. He is currently on 2 L O2 nasal cannula. He was also started on norepinephrine which is currently running at 0.2 mics per kilogram per minute. The patient will be started on IV Zosyn as an empiric antibiotic coverage. No reported aspiration. He has had previous urinary tract infection with E. coli and this was an ESBL producing bacteria. The current UA was abnormal and a Yanez catheter was inserted and the patient had cloudy urine output. No seizure activity has been noted. His proBNP level is 766. Troponins were negative Patient was evaluated today on 10/25/21, remains in the ICU, patient seems to be very comfortable, he is on room air with O2 saturations 94%, he is off norepinephrine this morning. Remains on 0.9 normal saline at 13 0 mL per hour. Patient does not seem to be in any distress. Cultures are so far nondiagnostic. Exact source of his sepsis is not clear yet, however considering the patient is hemodynamically stable, I plan to transfer the patient out of the ICU to regular medical floor. Patient remains empirically on antibiotics, and I am recommending a midline placement in this patient. WBC count is 11.9 hemoglobin is 13.0 electrolytes are normal renal profile is normal bicarb is 20. Blood cultures and urine cultures are negative so far. Reevaluated today on 10/26/21, patient remains, in the ICU, he is on room air, O2 saturations 96%. Patient is hemodynamically stable, he is not requiring any pressors. Patient is in no distress. WBC count is 7.8 hemoglobin is 11.8 electrolytes are normal renal profile is normal. Cultures including blood and urine are negative. Remains empirically on Zosyn, and infectious disease recommended CT of the abdomen and pelvis, came back unremarkable.. Clinically the patient has no evidence of acute abdomen Objective - Vital Signs Vital signs: Vital Signs Temp 97.9 F 10/25/21 20:00 Pulse 96 10/26/21 04:00 Resp 26 H 10/26/21 04:00 BP 102/69 10/26/21 04:00 Pulse Ox 96 10/26/21 04:00 FiO2 Intake & Output 10/25/21 10/26/21 10/26/21 18:59 06:59 18:59 Intake Total 2185.490 980 Output Total 435 380 Balance 1750.490 600 Weight 150.5 kg 163.8 kg Intake: IV 1960 980 0.9@130mls/hr 1560 780 Piperacillin-Tazobactam 3 200 100 .375 gm In Sodium Chloride 0.9% 100 ml @ 25 mls/hr IVPB Q6HR [facility] Rx# :[id number] Potassium Chloride 10 meq 200 In Water For Injection 1 100ml.bag @ 100 mls/hr IVPB Q1H [facility] Rx#: [id number] levETIRAcetam IV 1,000 mg 100 In Saline 1 100ml.bag @ 400 mls/hr IVPB Q12HR [facility] Rx#:[id number] Intake, IV Titration 225.490 Amount Magnesium Sulfate-D5w Pmx 100 1 gm In Dextrose/Water 1 100ml.bag @ 100 mls/hr IVPB ONCE ONE Rx#: [id number] Norepinephrine 4 mg In 25.490 Sodium Chloride 0.9% 250 ml @ 0.05 MCG/KG/MIN 25. 491 mls/hr IV .Q9H58M [facility] Rx#:[id number] levETIRAcetam IV 1,000 mg 100 In Saline 1 100ml.bag @ 400 mls/hr IVPB Q12HR [facility] Rx#:[id number] Output: Urine 435 380 Other: Voiding Method Indwelling Catheter Indwelling Catheter - Exam Physical Exam: Revealed 66-year-old white male in no distress. On room air. Head: Atraumatic, normocephalic. HEENT:[Neck is supple.] [No neck masses.] [No thyromegaly.] [No JVD.] Chest: [Clear throughout, no crackles, no rhonchi, no wheezes.] Cardiac Exam: [Normal S1 and S2, no S3 gallop, no murmur.] Abdomen: [Soft, nontender, no megaly, no rebound, no guarding, normal bowel sounds.] Extremities: [No clubbing, no edema, no cyanosis.] Neurological Exam: Alert and oriented 3 no other focal deficit, patient is rather a bit slow Psychiatric: Normal mood, normal affect, slow and minimally confused Skin: Evidence of stage II ulcers noted on the left ankle medially and on sacrum. - Labs CBC & Chem 7: 10/26/21 05:29 10/26/21 05:29 Labs: Abnormal Lab Results - Last 24 Hours (Table) 10/25/21 10/26/21 10/26/21 Range/Units 18:06 05:29 05:29 RBC 3.57 L (4.30-5.90) m/uL Hgb 11.8 L (13.0-17.5) gm/dL Hct 36.1 L (39.0-53.0) % MCV 101.2 H (80.0-100.0) fL Chloride 112 H (98-107) mmol/L Creatinine 0.40 L (0.66-1.25) mg/dL Glucose 118 H (74-99) mg/dL POC Glucose (mg/dL) 149 H (70-110) mg/dL Calcium 8.2 L (8.4-10.2) mg/dL Total Protein 4.4 L (6.3-8.2) g/dL Albumin 2.2 L (3.5-5.0) g/dL 10/26/21 Range/Units 06:42 RBC (4.30-5.90) m/uL Hgb (13.0-17.5) gm/dL Hct (39.0-53.0) % MCV (80.0-100.0) fL Chloride (98-107) mmol/L Creatinine (0.66-1.25) mg/dL Glucose (74-99) mg/dL POC Glucose (mg/dL) 111 H (70-110) mg/dL Calcium (8.4-10.2) mg/dL Total Protein (6.3-8.2) g/dL Albumin (3.5-5.0) g/dL Microbiology - Last 24 Hours (Table) 10/24/21 03:02 Blood Culture - Preliminary Blood No Growth after 48 hours 10/23/21 10:52 Blood Culture - Preliminary Blood No Growth after 48 hours 10/23/21 10:52 Blood Culture - Preliminary Blood No Growth after 48 hours 10/24/21 03:30 Urine Culture - Final Urine,Voided Assessment and Plan Assessment: Impression: Sepsis/septic shock exact source is not clear, cultures are negative so far. History of ESBL E. coli infection Difficulty swallowing, specific diet was recommended. Dementia. History of closed head injury. Essential hypertension. Degenerative joint disease. History of pulmonary embolism and DVT. Obesity. Paroxysmal atrial fibrillation. History of seizure disorder. Stage II ulceration in the inner left ankle area and coccyx. Recommendation: Continue IV fluids. Continue Zosyn Transfer to surgical medical floor. Resume eliquis. We'll continue to follow. Time with Patient: Less than 30
[2021-10-26 11:45] LABS: Glucose,Whole Blood 140 mg/dL (70-110)
--- NOTE | 2021-10-26 14:07 | PN ---
PROGRESS NOTE DATE OF SERVICE: 10/26/2021 This 66-year-old gentleman was admitted with acute urinary tract infection with E coli, septic shock, being closely monitored at this time. The patient had abdominal and pelvis CAT scan today which showed hepatic steatosis and prostatomegaly. The cultures are negative so far. The patient began antibiotics. Past medical history reviewed. REVIEW OF SYSTEM: Not taken, the patient is slightly drowsy. CURRENT MEDICATIONS: Reviewed and include: Keppra and IV Zosyn. Doses are reviewed. PHYSICAL EXAMINATION: Pulse is 82, blood pressure 120/90. Respiration 11. HEENT: Conjunctivae normal. Neck: No JVD. Cardiovascular: S1, S2 muffled. Respirations: Breath sounds diminished in the bases. A few scattered rhonchi. Abdomen: Soft, obese. Legs: No edema. No swelling. LABS: WBC 7.3, hemoglobin 11.2. Other labs reviewed. ASSESSMENT: 1. Acute urinary tract infection with Escherichia coli, ESBL with septic shock, present on admission. 2. Dysphagia. 3. Dehydration. 4. History of pulmonary emboli and DVT. 5. Multiple medical issues. RECOMMENDATIONS AND DISCUSSION: Recommend to continue current medications, symptomatic treatment. Otherwise, I would recommend a modified barium swallow with speech pathology. Continue rest of medications. Aspiration precautions. Empiric antibiotics. Infectious Disease evaluation is ongoing. Closely follow with Pulmonary. Further recommendations to follow. Prognosis guarded. MMODL / IJN: [id number] /
[2021-10-26 18:19] LABS: Glucose,Whole Blood 174 mg/dL (70-110)
[2021-10-26] MEDS: ATORVASTATIN 10 MG TAB PO SCH (20:04)
[2021-10-26] MEDS: MELATONIN 5 MG TABLET PO SCH (20:04)
--- NOTE | 2021-10-26 22:49 | P.PN ---
Subjective Progress Note Date: 10/26/21 Principal diagnosis: Sepsis Patient is a 66-year-old male with multiple comorbidity was brought to the hospital for decreased nonprotein and shallow breathing patient was febrile hypotensive requiring admission to the ICU with initial work-up was negative, did have a CT abdominal pelvis which came back negative as well. On today's evaluation there is 10/26/2021, the patient is afebrile patient is breathing comfortably on room air not a very good historian no vomiting or diarrhea has been reported by the nursing staff Objective - Vital Signs Vital signs: Vital Signs Temp 97.9 F 10/25/21 20:00 Pulse 96 10/26/21 04:00 Resp 26 H 10/26/21 04:00 BP 102/69 10/26/21 04:00 Pulse Ox 96 10/26/21 04:00 FiO2 Intake & Output 10/25/21 10/26/21 10/26/21 18:59 06:59 18:59 Intake Total 2185.490 980 Output Total 435 380 Balance 1750.490 600 Weight 150.5 kg 163.8 kg Intake: IV 1960 980 0.9@130mls/hr 1560 780 Piperacillin-Tazobactam 3 200 100 .375 gm In Sodium Chloride 0.9% 100 ml @ 25 mls/hr IVPB Q6HR [facility] Rx# :[id number] Potassium Chloride 10 meq 200 In Water For Injection 1 100ml.bag @ 100 mls/hr IVPB Q1H [facility] Rx#: [id number] levETIRAcetam IV 1,000 mg 100 In Saline 1 100ml.bag @ 400 mls/hr IVPB Q12HR [facility] Rx#:[id number] Intake, IV Titration 225.490 Amount Magnesium Sulfate-D5w Pmx 100 1 gm In Dextrose/Water 1 100ml.bag @ 100 mls/hr IVPB ONCE ONE Rx#: [id number] Norepinephrine 4 mg In 25.490 Sodium Chloride 0.9% 250 ml @ 0.05 MCG/KG/MIN 25. 491 mls/hr IV .[id number] [facility] Rx#:[id number] levETIRAcetam IV 1,000 mg 100 In Saline 1 100ml.bag @ 400 mls/hr IVPB Q12HR [facility] Rx#:[id number] Output: Urine 435 380 Other: Voiding Method Indwelling Catheter Indwelling Catheter - Exam GENERAL DESCRIPTION: An elderly male lying in bed in no distress RESPIRATORY SYSTEM: Unlabored breathing , decreased breath sounds at bases HEART: S1 S2 regular rate and rhythm , ABDOMEN: Soft , no tenderness EXTREMITIES: Diffuse swelling of bilateral lower extremity - Labs CBC & Chem 7: 10/26/21 05:29 10/26/21 05:29 Labs: Abnormal Lab Results - Last 24 Hours (Table) 10/25/21 10/25/21 10/26/21 Range/Units 11:07 18:06 05:29 RBC (4.30-5.90) m/uL Hgb (13.0-17.5) gm/dL Hct (39.0-53.0) % MCV (80.0-100.0) fL Chloride 112 H (98-107) mmol/L Creatinine 0.40 L (0.66-1.25) mg/dL Glucose 118 H (74-99) mg/dL POC Glucose (mg/dL) 136 H 149 H (70-110) mg/dL Calcium 8.2 L (8.4-10.2) mg/dL Total Protein 4.4 L (6.3-8.2) g/dL Albumin 2.2 L (3.5-5.0) g/dL 10/26/21 10/26/21 Range/Units 05:29 06:42 RBC 3.57 L (4.30-5.90) m/uL Hgb 11.8 L (13.0-17.5) gm/dL Hct 36.1 L (39.0-53.0) % MCV 101.2 H (80.0-100.0) fL Chloride (98-107) mmol/L Creatinine (0.66-1.25) mg/dL Glucose (74-99) mg/dL POC Glucose (mg/dL) 111 H (70-110) mg/dL Calcium (8.4-10.2) mg/dL Total Protein (6.3-8.2) g/dL Albumin (3.5-5.0) g/dL Microbiology - Last 24 Hours (Table) 10/24/21 03:02 Blood Culture - Preliminary Blood No Growth after 48 hours 10/23/21 10:52 Blood Culture - Preliminary Blood No Growth after 48 hours 10/23/21 10:52 Blood Culture - Preliminary Blood No Growth after 48 hours 10/24/21 03:30 Urine Culture - Final Urine,Voided Assessment and Plan (1) Febrile illness, acute Current Visit: Yes Status: Acute Code(s): R50.9 - FEVER, UNSPECIFIED SNOMED Code(s): 972075033 Plan: 1patient presented to hospital with sepsis in this we did have a fever hypotension elevated lactic acid, elevated white count in this patient initial work-up including chest x-ray x2 and urine repeat was mildly positive, CT abdominal pelvis did not show any acute intra-abdominal pathology 2patient to continue Zosyn while waiting for repeat cultures to finalize and mo nitor clinical course closely Time with Patient: Less than 30
[2021-10-26 23:59] LABS: Glucose,Whole Blood 124 mg/dL (70-110)
[2021-10-27] MEDS: PIPERACILLIN-TAZOBACTAM 3.375 GM in SODIUM CHLORIDE 0.9% 100 ML IVPB SCH ×4 (00:36→23:43)
[2021-10-27 05:49] LABS: Glucose,Whole Blood 145 mg/dL (70-110)
[2021-10-27] MEDS: SODIUM CHLORIDE 0.9% 1,000 ML IV SCH (07:45)
[2021-10-27] MEDS: APIXABAN 5 MG TAB PO SCH ×2 (08:31→22:57)
[2021-10-27] MEDS: CHOLECALCIFEROL 25 MCG (1000 IU) TABLET PO SCH (08:31)
[2021-10-27] MEDS: CITALOPRAM HYDROBROMIDE 10 MG TAB PO SCH (08:31)
[2021-10-27] MEDS: MULTIVITAMINS, THERA 1 EACH TAB PO SCH (08:31)
[2021-10-27] MEDS: ASPIRIN 325 MG TAB PO SCH (08:31)
[2021-10-27] MEDS: POTASSIUM CHLORIDE ER 20 MEQ TAB.ER PO SCH (08:31)
[2021-10-27] MEDS: DULoxetine HCL 20 MG CAPSULE.DR PO SCH (08:31)
[2021-10-27] MEDS: levETIRAcetam IV 1,000 MG in SALINE 1 100ML.BAG IVPB SCH (08:32)
[2021-10-27] MEDS: VALPROIC ACID ORAL SOLN 250 MG/5 ML CUP PO SCH ×2 (08:53→22:56)
[2021-10-27] MEDS: NOREPINEPHRINE 4 MG in SODIUM CHLORIDE 0.9% 250 ML IV SCH (12:12)
[2021-10-27 12:16] LABS: Glucose,Whole Blood 162 mg/dL (70-110)
--- NOTE | 2021-10-27 12:30 | P.PN ---
Subjective Progress Note Date: 10/27/21 Principal diagnosis: Sepsis and septic shock 66-year-old male patient got transferred to the intensive care unit because of hypotension. The patient is a senior living resident and he has multiple medical problems and comorbidities. He was found to have some increased shortness of breath and edema in lower extremities. He was recently given a higher dose of Lasix at a dose of 80 mg twice a day and this was started approximately a week ago. The patient was having also some diminished level of alertness above and beyond his baseline for that reason the patient was brought into the hospital and overnight the patient got transferred to the intensive care unit because of hypotension. The patient had a chest x-ray showed no acute cardiopulmonary process. EKG shows some sinus tachycardia. His initial blood work 3.4 and subsequently dropped down to 1.6. His current white cell count is at 21 with a hemoglobin of 14.5 and a platelet count of 344. Sodium is at 136. BUN is at 70 with a creatinine of 0.8. He is currently on normal saline at the rate of 130 mL an hour. Note that overnight, the patient received 2 L IV fluid bolus. He is currently on 2 L O2 nasal cannula. He was also started on norepinephrine which is currently running at 0.2 mics per kilogram per minute. The patient will be started on IV Zosyn as an empiric antibiotic coverage. No reported aspiration. He has had previous urinary tract infection with E. coli and this was an ESBL producing bacteria. The current UA was abnormal and a Yanez catheter was inserted and the patient had cloudy urine output. No seizure activity has been noted. His proBNP level is 766. Troponins were negative Patient was evaluated today on 10/25/21, remains in the ICU, patient seems to be very comfortable, he is on room air with O2 saturations 94%, he is off norepinephrine this morning. Remains on 0.9 normal saline at 13 0 mL per hour. Patient does not seem to be in any distress. Cultures are so far nondiagnostic. Exact source of his sepsis is not clear yet, however considering the patient is hemodynamically stable, I plan to transfer the patient out of the ICU to regular medical floor. Patient remains empirically on antibiotics, and I am recommending a midline placement in this patient. WBC count is 11.9 hemoglobin is 13.0 electrolytes are normal renal profile is normal bicarb is 20. Blood cultures and urine cultures are negative so far. Reevaluated today on 10/26/21, patient remains, in the ICU, he is on room air, O2 saturations 96%. Patient is hemodynamically stable, he is not requiring any pressors. Patient is in no distress. WBC count is 7.8 hemoglobin is 11.8 electrolytes are normal renal profile is normal. Cultures including blood and urine are negative. Remains empirically on Zosyn, and infectious disease recommended CT of the abdomen and pelvis, came back unremarkable.. Clinically the patient has no evidence of acute abdomen Reevaluated today on 10/27/21, patient remains in the ICU, he is an overflow. on room air, his O2 sats is 97% patient patient is hemodynamically stable, no major issues overnight, I believe the patient should be considered for possible discharge home, however the antibiotics will have to be addressed by the infectious disease on the case, cultures have all been negative. And patient is waiting for a bed to be placed on a regular medical floor. But I believe we should seriously consider discharging the patient back to senior living on of the ICU Objective - Vital Signs Vital signs: Vital Signs Temp 99.1 F 10/27/21 04:00 Pulse 94 10/27/21 08:00 Resp 28 H 10/27/21 08:00 BP 130/94 10/27/21 08:00 Pulse Ox 97 10/27/21 08:00 FiO2 Intake & Output 10/26/21 10/27/21 10/27/21 18:59 06:59 18:59 Intake Total 2640 1020 Output Total 490 800 Balance 2150 220 Intake: IV 1040 1020 0.9@60mls/hr 1040 720 Piperacillin-Tazobactam 3 200 .375 gm In Sodium Chloride 0.9% 100 ml @ 25 mls/hr IVPB Q6HR [facility] Rx# :[id number] levETIRAcetam IV 1,000 mg 100 In Saline 1 100ml.bag @ 400 mls/hr IVPB Q12HR [facility] Rx#:[id number] Oral 1600 Output: Urine 490 800 Other: Voiding Method Indwelling Catheter Indwelling Catheter Indwelling Catheter - Exam Physical Exam: Revealed 66-year-old white male in no distress. On room air. Head: Atraumatic, normocephalic. HEENT:[Neck is supple.] [No neck masses.] [No thyromegaly.] [No JVD.] Chest: [Clear throughout, no crackles, no rhonchi, no wheezes.] Cardiac Exam: [Normal S1 and S2, no S3 gallop, no murmur.] Abdomen: [Soft, nontender, no megaly, no rebound, no guarding, normal bowel sounds.] Extremities: [No clubbing, no edema, no cyanosis.] Neurological Exam: Alert and oriented 3 no other focal deficit, patient is rather a bit slow Psychiatric: Normal mood, normal affect, slow and minimally confused Skin: Evidence of stage II ulcers noted on the left ankle medially and on sacrum. - Labs CBC & Chem 7: 10/26/21 05:29 10/26/21 05:29 Labs: Abnormal Lab Results - Last 24 Hours (Table) 10/26/21 10/26/21 10/27/21 Range/Units 18:17 23:57 05:47 POC Glucose (mg/dL) 174 H 124 H 145 H (70-110) mg/dL 10/27/21 Range/Units 12:14 POC Glucose (mg/dL) 162 H (70-110) mg/dL Microbiology - Last 24 Hours (Table) 10/24/21 03:02 Blood Culture - Preliminary Blood No Growth after 72 hours 10/23/21 10:52 Blood Culture - Preliminary Blood No Growth after 72 hours 10/23/21 10:52 Blood Culture - Preliminary Blood No Growth after 72 hours Assessment and Plan Assessment: Impression: Sepsis/septic shock exact source is not clear, cultures are negative so far. History of ESBL E. coli infection Difficulty swallowing, specific diet was recommended. Dementia. History of closed head injury. Essential hypertension. Degenerative joint disease. History of pulmonary embolism and DVT. Obesity. Paroxysmal atrial fibrillation. History of seizure disorder. Stage II ulceration in the inner left ankle area and coccyx. Recommendation: Continue IV fluids. Likely transition to oral antibiotics if recommended by infectious disease Consider discharge planning, we'll clear the patient for discharge to senior living if cleared by infectious disease on the case. Resume eliquis. We'll continue to follow. As needed Time with Patient: Less than 30
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
--- NOTE | 2021-10-27 22:20 | P.PN ---
Subjective Progress Note Date: 10/27/21 Principal diagnosis: Sepsis Patient is a 66-year-old male with multiple comorbidity was brought to the hospital for decreased nonprotein and shallow breathing patient was febrile hypotensive requiring admission to the ICU with initial work-up was negative, did have a CT abdominal pelvis which came back negative as well. On today's evaluation there is 10/27/2021, the patient remains to be afebrile, the patient is breathing comfortably on room air , patient not a very good historian and did not answer any question no vomiting or diarrhea has been reported by the nursing staff Objective - Vital Signs Vital signs: Vital Signs Temp 99.1 F 10/27/21 04:00 Pulse 94 10/27/21 08:00 Resp 28 H 10/27/21 08:00 BP 130/94 10/27/21 08:00 Pulse Ox 97 10/27/21 08:00 FiO2 Intake & Output 10/26/21 10/27/21 10/27/21 18:59 06:59 18:59 Intake Total 2640 1020 Output Total 490 800 Balance 2150 220 Intake: IV 1040 1020 0.9@60mls/hr 1040 720 Piperacillin-Tazobactam 3 200 .375 gm In Sodium Chloride 0.9% 100 ml @ 25 mls/hr IVPB Q6HR [facility] Rx# :[id number] levETIRAcetam IV 1,000 mg 100 In Saline 1 100ml.bag @ 400 mls/hr IVPB Q12HR [facility] Rx#:[id number] Oral 1600 Output: Urine 490 800 Other: Voiding Method Indwelling Catheter Indwelling Catheter Indwelling Catheter - Exam GENERAL DESCRIPTION: An elderly male lying in bed in no distress RESPIRATORY SYSTEM: Unlabored breathing , decreased breath sounds at bases HEART: S1 S2 regular rate and rhythm , ABDOMEN: Soft , no tenderness EXTREMITIES: Diffuse swelling of bilateral lower extremity, there is some redness to the right leg and tenderness - Labs CBC & Chem 7: 10/26/21 05:29 10/26/21 05:29 Labs: Abnormal Lab Results - Last 24 Hours (Table) 10/26/21 10/26/21 10/27/21 Range/Units 18:17 23:57 05:47 POC Glucose (mg/dL) 174 H 124 H 145 H (70-110) mg/dL 10/27/21 Range/Units 12:14 POC Glucose (mg/dL) 162 H (70-110) mg/dL Microbiology - Last 24 Hours (Table) 10/24/21 03:02 Blood Culture - Preliminary Blood No Growth after 72 hours 10/23/21 10:52 Blood Culture - Preliminary Blood No Growth after 72 hours 10/23/21 10:52 Blood Culture - Preliminary Blood No Growth after 72 hours Assessment and Plan (1) Febrile illness, acute Current Visit: Yes Status: Acute Code(s): R50.9 - FEVER, UNSPECIFIED SNOMED Code(s): 033230110 Plan: 1patient presented to hospital with sepsis in this we did have a fever hypotension elevated lactic acid, elevated white count in this patient initial work-up including chest x-ray x2 and urine repeat was mildly positive, CT abdominal pelvis did not show any acute intra-abdominal pathology, patient did have swelling to the leg and minimal erythema to the right leg and question of possible cellulitis 2patient to continue Zosyn in view of clinical response and monitor clinical course closely
[2021-10-27] MEDS: MELATONIN 5 MG TABLET PO SCH (22:57)
[2021-10-27] MEDS: ATORVASTATIN 10 MG TAB PO SCH (22:57)
[2021-10-27] MEDS: levETIRAcetam 500 MG TAB PO SCH (22:57)
[2021-10-28 06:56] LABS: Glucose,Whole Blood 123 mg/dL (70-110)
[2021-10-28] MEDS: levETIRAcetam 500 MG TAB PO SCH ×2 (08:20→22:28)
[2021-10-28] MEDS: MULTIVITAMINS, THERA 1 EACH TAB PO SCH (08:20)
[2021-10-28] MEDS: APIXABAN 5 MG TAB PO SCH ×2 (08:20→22:29)
[2021-10-28] MEDS: DULoxetine HCL 20 MG CAPSULE.DR PO SCH (08:20)
[2021-10-28] MEDS: POTASSIUM CHLORIDE ER 20 MEQ TAB.ER PO SCH (08:20)
[2021-10-28] MEDS: ASPIRIN 325 MG TAB PO SCH (08:20)
[2021-10-28] MEDS: CHOLECALCIFEROL 25 MCG (1000 IU) TABLET PO SCH (08:20)
[2021-10-28] MEDS: CITALOPRAM HYDROBROMIDE 10 MG TAB PO SCH (08:20)
[2021-10-28] MEDS: PIPERACILLIN-TAZOBACTAM 3.375 GM in SODIUM CHLORIDE 0.9% 100 ML IVPB SCH ×3 (08:21→23:15)
[2021-10-28] MEDS: VALPROIC ACID ORAL SOLN 250 MG/5 ML CUP PO SCH ×2 (08:22→22:29)
[2021-10-28 11:26] LABS: Glucose,Whole Blood 135 mg/dL (70-110)
--- NOTE | 2021-10-28 16:27 | FL ---
EXAMINATION TYPE: FL barium swallow w video DATE OF EXAM: 10/28/2021 CLINICAL HISTORY: 66-year-old male choking episode this morning, assess for aspiration TECHNIQUE: Deglutition study is performed utilizing thin liquid barium, honey thick liquid barium, b arium thick applesauce, and barium coated cracker. Total fluoroscopy time: 1 minute 57 seconds. Total images: None. Real-time fluoroscopy support was provided to speech pathology. COMPARISON: None. FINDINGS: Patient is edentulous. The oral and pharyngeal phases show satisfactory initiation and propagation with all modalities teste d. Normal mastication is seen with solid modalities tested. There is no evidence of penetration or aspiration with any modality tested. No significant pharyngeal residue was appreciated. IMPRESSION: Edentulous patient. However, otherwise normal deglutition study. Please refer to speech therapist notes for further details if necessary.
[2021-10-28 17:16] LABS: Glucose,Whole Blood 156 mg/dL (70-110)
[2021-10-28] MEDS: SODIUM CHLORIDE 0.9% 1,000 ML IV SCH ×2 (17:34→23:19)
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
[2021-10-28] MEDS: NOREPINEPHRINE 4 MG in SODIUM CHLORIDE 0.9% 250 ML IV SCH (19:40)
[2021-10-28 20:44] LABS: Glucose,Whole Blood 134 mg/dL (70-110)
[2021-10-28] MEDS: MELATONIN 5 MG TABLET PO SCH (22:28)
[2021-10-28] MEDS: ATORVASTATIN 10 MG TAB PO SCH (22:29)
--- NOTE | 2021-10-28 22:48 | P.PN ---
Subjective Progress Note Date: 10/28/21 Principal diagnosis: Sepsis Patient is a 66-year-old male with multiple comorbidity was brought to the hospital for decreased nonprotein and shallow breathing patient was febrile hypotensive requiring admission to the ICU with initial work-up was negative, did have a CT abdominal pelvis which came back negative as well. On today's evaluation there is 10/28/2021, the patient did have a low-grade fever 100.2F after midnight afebrile since then, the patient is breathing comfortably on room air , patient is more awake and alert simple questions denies any chest pain or abdominal pain and no diarrhea has been reported Objective - Vital Signs Vital signs: Vital Signs Temp 97.7 F 10/28/21 08:00 Pulse 88 10/28/21 08:00 Resp 17 10/28/21 01:11 BP 109/71 10/28/21 08:00 Pulse Ox 94 L 10/28/21 08:00 FiO2 Intake & Output 10/27/21 10/28/21 10/28/21 18:59 06:59 18:59 Output Total 450 800 Balance -450 -800 Output: Urine 450 800 Other: Voiding Method Indwelling Catheter Indwelling Catheter Indwelling Catheter # Bowel Movements 1 - Exam GENERAL DESCRIPTION: An elderly male lying in bed in no distress RESPIRATORY SYSTEM: Unlabored breathing , decreased breath sounds at bases HEART: S1 S2 regular rate and rhythm , ABDOMEN: Soft , no tenderness EXTREMITIES: Diffuse swelling of bilateral lower extremity, there is some redness to the right leg and tenderness - Labs CBC & Chem 7: 10/26/21 05:29 10/26/21 05:29 Labs: Abnormal Lab Results - Last 24 Hours (Table) 10/28/21 10/28/21 Range/Units 06:55 11:24 POC Glucose (mg/dL) 123 H 135 H (70-110) mg/dL Microbiology - Last 24 Hours (Table) 10/23/21 10:52 Blood Culture - Preliminary Blood No Growth after 120 hours 10/23/21 10:52 Blood Culture - Preliminary Blood No Growth after 120 hours 10/24/21 03:02 Blood Culture - Preliminary Blood No Growth after 96 hours Assessment and Plan (1) Febrile illness, acute Current Visit: Yes Status: Acute Code(s): R50.9 - FEVER, UNSPECIFIED SNOME D Code(s): 928557395 Plan: 1patient presented to hospital with sepsis in this we did have a fever hypotension elevated lactic acid, elevated white count in this patient initial work-up including chest x-ray x2 and urine repeat was mildly positive, CT abdomi nal pelvis did not show any acute intra-abdominal pathology, patient did have swelling to the leg and minimal erythema to the right leg and question of possible cellulitis 2patient seemed to have shown some clinical improvement he is currently on Zosyn that that will be transitioning to oral antibiotic on discharge Time with Patient: Less than 30
[2021-10-29 07:11] LABS: Glucose,Whole Blood 107 mg/dL (70-110)
[2021-10-29] MEDS: APIXABAN 5 MG TAB PO SCH ×2 (08:33→21:04)
[2021-10-29] MEDS: ASPIRIN 325 MG TAB PO SCH (08:33)
[2021-10-29] MEDS: CHOLECALCIFEROL 25 MCG (1000 IU) TABLET PO SCH (08:33)
[2021-10-29] MEDS: MULTIVITAMINS, THERA 1 EACH TAB PO SCH (08:33)
[2021-10-29] MEDS: VALPROIC ACID ORAL SOLN 250 MG/5 ML CUP PO SCH ×2 (08:33→21:04)
[2021-10-29] MEDS: POTASSIUM CHLORIDE ER 20 MEQ TAB.ER PO SCH (08:33)
[2021-10-29] MEDS: CITALOPRAM HYDROBROMIDE 10 MG TAB PO SCH (08:34)
[2021-10-29] MEDS: DULoxetine HCL 20 MG CAPSULE.DR PO SCH (08:34)
[2021-10-29] MEDS: levETIRAcetam 500 MG TAB PO SCH ×2 (08:34→21:04)
[2021-10-29] MEDS: PIPERACILLIN-TAZOBACTAM 3.375 GM in SODIUM CHLORIDE 0.9% 100 ML IVPB SCH ×2 (08:35→16:25)
[2021-10-29 09:21] LABS: Basophils # (A) 0.04 X 10*3/uL (0.00-0.10); Basophils % (A) 0.4 %; Eosinophils # (A) 0.39 X 10*3/uL (0.04-0.35); Eosinophils % (A) 3.8 %; HCT 36.3 % (39.6-50.0); HGB 11.6 g/dL (13.0-17.0); Immature Grans, Automated 1.7 %; Lymphocytes # (A) 1.35 X 10*3/uL (0.90-5.00); Lymphocytes % (A) 13.3 %; MCH 31.6 pg (27.0-32.0); MCV 98.9 fL (80.0-97.0); Mean Platelet Volume 10.4 fL (9.5-12.2); Monocytes # (A) 1.01 X 10*3/uL (0.20-1.00); NRBC Per 100 WBC 0 /100 WBCS (0.0-0.0); Neutrophils # (A) 7.18 X 10*3/uL (1.80-7.70); Neutrophils % (A) 70.8 %; Platelet Count 334 X 10*3/uL (140-440); RBC 3.67 X 10*6/uL (4.40-5.60); RDW 14.1 % (11.5-14.5); WBC 10.14 X 10*3/uL (4.50-10.00)
[2021-10-29 10:20] LABS: African American GFR (CKD) 142.4 (60.0-200.0); Anion Gap 9.4 mmol/L (10.00-18.00); BUN/Creat Ratio 8.25 Ratio (12.00-20.00); Blood Urea Nitrogen 3.3 mg/dL (9.0-27.0); Calcium 8.4 mg/dL (8.7-10.3); Carbon Dioxide 23.6 mmol/L (20.0-27.5); Magnesium 1.7 mg/dL (1.5-2.4); Non-African American GFR(CKD) 122.9 (60.0-200.0); Potassium 3.9 mmol/L (3.5-5.5)
[2021-10-29 11:23] LABS: Glucose,Whole Blood 187 mg/dL (70-110)
[2021-10-29 13:16] VITALS: BMI 46.3
[2021-10-29 16:53] LABS: Glucose,Whole Blood 168 mg/dL (70-110)
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
[2021-10-29 20:09] LABS: Glucose,Whole Blood 156 mg/dL (70-110)
[2021-10-29] MEDS: MELATONIN 5 MG TABLET PO SCH (21:04)
[2021-10-29] MEDS: ATORVASTATIN 10 MG TAB PO SCH (21:04)
[2021-10-29] MEDS: SODIUM CHLORIDE 0.9% 1,000 ML IV SCH (21:23)
--- NOTE | 2021-10-29 21:59 | P.PN ---
Subjective Progress Note Date: 10/29/21 Principal diagnosis: Sepsis Patient is a 66-year-old male with multiple comorbidity was brought to the hospital for decreased nonprotein and shallow breathing patient was febrile hypotensive requiring admission to the ICU with initial work-up was negative, did have a CT abdominal pelvis which came back negative as well. On today's evaluation there is 10/02/2021, the patient afebrile today, the patient is breathing comfortably on room air , patient is not very good historian and did not answer any questions no vomiting or diarrhea has been reported patient does not seem to be in any distress Objective - Vital Signs Vital signs: Vital Signs Temp 99.2 F 10/29/21 07:16 Pulse 81 10/29/21 07:16 Resp 16 10/29/21 07:16 BP 110/75 10/29/21 07:16 Pulse Ox 97 10/29/21 07:16 FiO2 Intake & Output 10/28/21 10/29/21 10/29/21 18:59 06:59 18:59 Output Total 1200 1650 Balance -1200 -1650 Output: Urine 1200 1650 Other: Voiding Method Indwelling Catheter Indwelling Catheter Indwelling Catheter # Bowel Movements 1 - Exam GENERAL DESCRIPTION: An elderly male lying in bed in no distress RESPIRATORY SYSTEM: Unlabored breathing , decreased breath sounds at bases HEART: S1 S2 regular rate and rhythm , ABDOMEN: Soft , no tenderness EXTREMITIES: Diffuse swelling of bilateral lower extremity, there is some redness to the right leg and tenderness - Labs CBC & Chem 7: 10/29/21 03:27 10/29/21 03:27 Labs: Abnormal Lab Results - Last 24 Hours (Table) 10/28/21 10/28/21 10/29/21 Range/Units 17:15 20:43 03:27 WBC (4.50-10.00) X 10*3/uL RBC (4.40-5.60) X 10*6/uL Hgb (13.0-17.0) g/dL Hct (39.6-50.0) % MCV (80.0-97.0) fL Immature Gran # (0.00-0.04) X 10*3/uL Monocytes # (0.20-1.00) X 10*3/uL Eosinophils # (0.04-0.35) X 10*3/uL Anion Gap (10.00-18.00) mmol/L BUN (9.0-27.0) mg/dL Creatinine (0.6-1.5) mg/dL BUN/Creatinine Ratio (12.00-20.00) Ratio Glucose (70-110) mg/dL POC Glucose (mg/dL) 156 H 134 H (70-110) mg/dL Calcium (8.7-10.3) mg/dL Procalcitonin 0.13 H (0.02-0.09) ng/mL 10/29/21 10/29/21 10/29/21 Range/Units 03:27 03:27 11:22 WBC 10.14 H (4.50-10.00) X 10*3/uL RBC 3.67 L (4.40-5.60) X 10*6/uL Hgb 11.6 L (13.0-17.0) g/dL Hct 36.3 L (39.6-50.0) % MCV 98.9 H (80.0-97.0) fL Immature Gran # 0.17 H (0.00-0.04) X 10*3/uL Monocytes # 1.01 H (0.20-1.00) X 10*3/uL Eosinophils # 0.39 H (0.04-0.35) X 10*3/uL Anion Gap 9.40 L (10.00-18.00) mmol/L BUN 3.3 L (9.0-27.0) mg/dL Creatinine 0.4 L (0.6-1.5) mg/dL BUN/Creatinine Ratio 8.25 L (12.00-20.00) Ratio Glucose 159 H (70-110) mg/dL POC Glucose (mg/dL) 187 H (70-110) mg/dL Calcium 8.4 L (8.7-10.3) mg/dL Procalcitonin (0.02-0.09) ng/mL Microbiology - Last 24 Hours (Table) 10/24/21 03:02 Blood Culture - Preliminary Blood No Growth after 120 hours 10/23/21 10:52 Blood Culture - Preliminary Blood No Growth after 120 hours 10/23/21 10:52 Blood Culture - Preliminary Blood No Growth after 120 hours Assessment and Plan (1) Febrile illness, acute Current Visit: Yes Status: Acute Code(s): R50.9 - FEVER, UNSPECIFIED SNOMED Code(s): 272466273 Plan: 1patient presented to hospital with sepsis in this we did have a fever hypotension elevated lactic acid, elevated white count in this patient initial work-up including chest x-ray x2 and urine repeat was mildly positive, CT abdominal pelvis did not show any acute intra-abdominal pathology, patient did have swelling to the leg and minimal erythema to the right leg and question of possible cellulitis 2patient is slowly clinically improving and will continue with Zosyn that that will be transitioning to oral antibiotic on discharge Time with Patient: Less than 30
[2021-10-30] MEDS: PIPERACILLIN-TAZOBACTAM 3.375 GM in SODIUM CHLORIDE 0.9% 100 ML IVPB SCH ×2 (00:08→09:21)
[2021-10-30] MEDS: SODIUM CHLORIDE 0.9% 1,000 ML IV SCH (06:25)
[2021-10-30 06:53] LABS: Glucose,Whole Blood 124 mg/dL (70-110)
[2021-10-30] MEDS: APIXABAN 5 MG TAB PO SCH (09:20)
[2021-10-30] MEDS: MULTIVITAMINS, THERA 1 EACH TAB PO SCH (09:20)
[2021-10-30] MEDS: CHOLECALCIFEROL 25 MCG (1000 IU) TABLET PO SCH (09:20)
[2021-10-30] MEDS: POTASSIUM CHLORIDE ER 20 MEQ TAB.ER PO SCH (09:20)
[2021-10-30] MEDS: ASPIRIN 325 MG TAB PO SCH (09:21)
[2021-10-30] MEDS: DULoxetine HCL 20 MG CAPSULE.DR PO SCH (09:21)
[2021-10-30] MEDS: CITALOPRAM HYDROBROMIDE 10 MG TAB PO SCH (09:21)
[2021-10-30] MEDS: levETIRAcetam 500 MG TAB PO SCH (09:21)
[2021-10-30] MEDS: VALPROIC ACID ORAL SOLN 250 MG/5 ML CUP PO SCH (09:22)
[2021-10-30 10:03] VITALS: BP 120/81; PULSE 86; RESP 18; TEMP 98.9
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
--- NOTE | 2021-10-30 14:30 | P.PN ---
Subjective Progress Note Date: 10/30/21 Principal diagnosis: Sepsis Patient is a 66-year-old male with multiple comorbidity was brought to the hospital for decreased nonprotein and shallow breathing patient was febrile hypotensive requiring admission to the ICU with initial work-up was negative, did have a CT abdominal pelvis which came back negative as well. On today's evaluation there is 10/30/2021, the patient remains to be afebrile, the patient is breathing comfortably on room air , patient is more awake and alert today, the patient denies having any chest pain or shortness of breath or cough no abdominal pain mention feeling better Objective - Vital Signs Vital signs: Vital Signs Temp 98.9 F 10/30/21 08:00 Pulse 86 10/30/21 09:30 Resp 18 10/30/21 09:30 BP 120/81 10/30/21 08:00 Pulse Ox 96 10/30/21 08:00 FiO2 Intake & Output 10/29/21 10/30/21 10/30/21 18:59 06:59 18:59 Intake Total 700 Output Total 1000 600 Balance -1000 100 Weight 163.8 kg Intake: IV 700 0.9@60mls/hr 700 Output: Urine 1000 600 Other: Voiding Method Indwelling Catheter Indwelling Catheter Indwelling Catheter - Exam GENERAL DESCRIPTION: An elderly male lying in bed in no distress RESPIRATORY SYSTEM: Unlabored breathing , decreased breath sounds at bases HEART: S1 S2 regular rate and rhythm , ABDOMEN: Soft , no tenderness EXTREMITIES: Diffuse swelling of bilateral lower extremity, no significant redness - Labs CBC & Chem 7: 10/29/21 03:27 10/29/21 03:27 Labs: Abnormal Lab Results - Last 24 Hours (Table) 10/29/21 10/29/21 10/30/21 Range/Units 16:52 20:07 06:52 POC Glucose (mg/dL) 168 H 156 H 124 H (70-110) mg/dL Microbiology - Last 24 Hours (Table) 10/29/21 16:37 Gram Stain - Preliminary Ankle - Left Wound Culture - Preliminary 10/24/21 03:02 Blood Culture - Final Blood No Growth after 144 hours 10/23/21 10:52 Blood Culture - Final Blood No Growth after 144 hours 10/23/21 10:52 Blood Culture - Final Blood No Growth after 144 hours Assessment and Plan (1) Febrile illness, acute Current Visit: Yes Status: Acute Code(s): R50.9 - FEVER, UNSPECIFIED SNOMED Code(s): 929181511 Plan: 1patient presented to hospital with sepsis in this we did have a fever hypotension elevated lactic acid, elevated white count in this patient initial work-up including chest x-ray x2 and urine repeat was mildly positive, CT abdominal pelvis did not show any acute intra-abdominal pathology, patient did have swelling to the leg and minimal erythema to the right leg and question of possible cellulitis 2patient has shown overall clinical improvement culture have been negative for resistant pathogen will give him a short course of oral Augmentin on discharge discussed with admitting physician as well as family at the bedside
== END 2021-10-30 14:42 | DRG 871 ==
LOC: EC 10:29 → 4SSUR 15:18 → 2SICU 10-24 03:14 → 4SSUR 10-27 12:58
PROVIDERS: ADMIT Internal Medicine; ATTEND Internal Medicine
PROC: 3E033XZ Introduction of Vasopressor into Peripheral Vein, Percutaneous Approach (ICD-10-PCS; principal; 2021-10-24)
PROC: 05HF33Z Insertion of Infusion Device into Left Cephalic Vein, Percutaneous Approach (ICD-10-PCS; 2021-10-27 10:00)
DX: A41.51 Sepsis due to Escherichia coli [E. coli] (principal); J18.9 Pneumonia, unspecified organism; R65.21 Severe sepsis with septic shock; E87.2 Acidosis; N39.0 Urinary tract infection, site not specified; Z16.12 Extended spectrum beta lactamase (ESBL) resistance; L03.115 Cellulitis of right lower limb; E66.9 Obesity, unspecified; E78.5 Hyperlipidemia, unspecified; E86.0 Dehydration; F03.90 Unspecified dementia, unspecified severity, without behavioral disturbance, psychotic disturbance, mood disturbance, and anxiety; G40.909 Epilepsy, unspecified, not intractable, without status epilepticus; G83.9 Paralytic syndrome, unspecified; H91.90 Unspecified hearing loss, unspecified ear; I10 Essential (primary) hypertension; J20.9 Acute bronchitis, unspecified; K21.9 Gastro-esophageal reflux disease without esophagitis; E86.9 Volume depletion, unspecified; N39.498 Other specified urinary incontinence; K76.0 Fatty (change of) liver, not elsewhere classified; M19.90 Unspecified osteoarthritis, unspecified site; Z20.822 Contact with and (suspected) exposure to COVID-19; Z68.37 Body mass index [BMI] 37.0-37.9, adult; R13.10 Dysphagia, unspecified; N40.1 Benign prostatic hyperplasia with lower urinary tract symptoms; I48.0 Paroxysmal atrial fibrillation; Z79.01 Long term (current) use of anticoagulants; Z79.82 Long term (current) use of aspirin; Z79.84 Long term (current) use of oral hypoglycemic drugs; Z79.899 Other long term (current) drug therapy; Z80.9 Family history of malignant neoplasm, unspecified; Z82.5 Family history of asthma and other chronic lower respiratory diseases; Z86.711 Personal history of pulmonary embolism; Z86.718 Personal history of other venous thrombosis and embolism; Z87.440 Personal history of urinary (tract) infections; Z71.3 Dietary counseling and surveillance
CPT/HCPCS: 36410; 36415; 71045; 74177; 74230; 76937; 80048; 80053; 80164; 80177; 81001; 83605; 83735; 83880; 84100; 84145; 84484; 85025; 85610; 85730; 87040; 87070; 87086; 87205; 87502; 87635; 93005; 96361; 96374; 99285

== ENCOUNTER 2021-12-19 21:01 | Inpatient (IN) | payer MEDICARE, OTHER ==
[2021-12-19] MEDS ORDERED: SODIUM CHLORIDE 0.9% 1,000 ML IV STA ×3 (21:36→23:34)
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
--- NOTE | 2021-12-19 23:47 | XR ---
EXAMINATION TYPE: XR chest 1V portable DATE OF EXAM: 12/19/2021 COMPARISON: 10/24/2021 HISTORY: Respiratory distress. Weakness TECHNIQUE: Single view FINDINGS: Heart is normal. Lungs are clear of consolidation. Thoracic aorta is atheromatous. There ar e no hilar masses. There are chest leads. Bony thorax is intact IMPRESSION: No active cardiopulmonary disease. No change.
[2021-12-20 00:20] LABS: Basophils # (A) 0.1 k/uL (0-0.2); Basophils % (A) 1 %; Eosinophils # (A) 0.2 k/uL (0-0.7); Eosinophils % (A) 1 %; HCT 40.6 % (39.0-53.0); HGB 13.1 gm/dL (13.0-17.5); Lymphocytes % (A) 16 %; MCHC 32.3 g/dL (31.0-37.0); Mean Platelet Volume 7.9; Monocytes # (A) 1.2 k/uL (0-1.0); Monocytes % (A) 10 %; Neutrophils % (A) 71 %; Platelet Count 426 k/uL (150-450); RDW 14.1 % (11.5-15.5); WBC 12.7 k/uL (3.8-10.6)
[2021-12-20 00:46] LABS: ALT 14 U/L (4-49); AST 28 U/L (17-59); African American GFR (CKD) >90 (>60 ml/min/1.73 sqM); Albumin 3.2 g/dL (3.5-5.0); Alkaline Phosphatase 57 U/L (38-126); Anion Gap 13 mmol/L; Blood Urea Nitrogen 28 mg/dL (9-20); Calcium 9.5 mg/dL (8.4-10.2); Carbon Dioxide 26 mmol/L (22-30); Chloride 97 mmol/L (98-107); Glucose 143 mg/dL (74-99); Magnesium 1.6 mg/dL (1.6-2.3); Non-African American GFR(CKD) >90 (>60 ml/min/1.73 sqM); Phosphorus 4.8 mg/dL (2.5-4.5); Potassium 4.5 mmol/L (3.5-5.1); Sodium 136 mmol/L (137-145); Total Bilirubin 0.4 mg/dL (0.2-1.3); Total Protein 5.8 g/dL (6.3-8.2)
[2021-12-20 00:59] LABS: INR 1.1 (<1.2); Partial Thromboplastin Time 32.3 sec (22.0-30.0); Prothrombin Time 11.7 sec (9.0-12.0)
[2021-12-20 03:54] LABS: Appearance,Urine Clear (Clear); Bacteria,Urine Occasional /hpf; Bilirubin,Urine Negative (Negative); Blood,Urine Small (Negative); Color,Urine Yellow; Glucose,Urine (UA) Negative (Negative); Hyaline Casts,Urine 12 /lpf (0-2); Ketones,Urine Negative (Negative); Leukocyte Esterase,Urine Large (Negative); Mucus,Urine Occasional /hpf; Nitrite,Urine Negative (Negative); PH, Urine 5.5 (5.0-8.0); Protein,Urine Negative (Negative); RBC,Urine 23 /hpf (0-5); Specific Gravity,Urine 1.013 (1.001-1.035); Squamous Epithelial Cell,Urine <1 /hpf (0-4); Urobilinogen,Urine <2.0 mg/dL (<2.0); WBC,Urine 35 /hpf (0-5)
[2021-12-20] MEDS ORDERED: NALOXONE 0.4 MG/ML 1 ML VIAL IV PRN (05:07)
[2021-12-20] MEDS ORDERED: ONDANSETRON 4 MG/2 ML VIAL IVP PRN (05:07)
[2021-12-20] MEDS ORDERED: MORPHINE SULFATE 4 MG/ML SYRINGE IV PRN (05:07)
[2021-12-20] MEDS ORDERED: SODIUM CHLORIDE 0.9% 1,000 ML IV STA (05:19)
[2021-12-20] MEDS: SODIUM CHLORIDE 0.9% 1,000 ML IV SCH (08:12)
--- NOTE | 2021-12-20 09:10 | US ---
EXAMINATION TYPE: US venous doppler duplex UE RT DATE OF EXAM: 12/20/2021 COMPARISON: NONE CLINICAL HISTORY: DVT. SIDE PERFORMED: right Right Arm: Very limited views show no DVT. Morbidly obese patient who was unable to cooperate with examiner. Patient yelled loudly when tech tri ed to position arm to scan, patient holding the bed and wouldn't abduct arm. Large thick neck held st iffly, unable to visualize IJV, upper brachial veins, radial veins or ulnar veins. Portions visualized are without evidence of deep venous thrombosis. However, exam is very limited. IMPRESSION: 1. Essentially nondiagnostic right upper extremity ultrasound.
[2021-12-20] MEDS ORDERED: ACETAMINOPHEN TAB 325 MG TAB PO PRN (11:02)
[2021-12-20] MEDS ORDERED: SODIUM HYPOCHLORITE 0.25% 480 ML BOT MISCELLANE PRN (11:02)
[2021-12-20] MEDS ORDERED: ALBUTEROL NEBULIZED 2.5 MG/3 ML INHALATION PRN (11:02)
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
[2021-12-20] MEDS ORDERED: [UNRECOGNIZED DRUG - OTHER] TOPICAL SCH (11:15)
[2021-12-20] MEDS: MAGNESIUM SULFATE-D5W PMX 1 GM in DEXTROSE/WATER 1 100ML.BAG IVPB SCH ×2 (12:03→13:52)
[2021-12-20] MEDS: GABAPENTIN 100 MG CAP PO SCH ×3 (13:52→22:51)
[2021-12-20] MEDS: POTASSIUM CHLORIDE ER 10 MEQ TAB.ER.PRT PO SCH (13:52)
[2021-12-20] MEDS: FUROSEMIDE 20 MG TAB PO SCH (14:00)
[2021-12-20] MEDS ORDERED: NON FORMULARY DRUG (Prostat Awc 30 ML) PO SCH (17:00)
[2021-12-20 20:43] LABS: Glucose,Whole Blood 133 mg/dL (70-110)
[2021-12-20] MEDS: SODIUM HYPOCHLORITE 0.25% 480 ML BOT MISCELLANE SCH (22:48)
[2021-12-20] MEDS: TRIAMCINOLONE 0.1% CREAM 80 GM TUBE TOPICAL SCH (22:48)
[2021-12-20] MEDS: ACETAMINOPHEN TAB 325 MG TAB PO SCH (22:50)
[2021-12-20] MEDS: APIXABAN 5 MG TAB PO SCH (22:51)
[2021-12-20] MEDS: ATORVASTATIN 10 MG TAB PO SCH (22:51)
[2021-12-20] MEDS: VALPROIC ACID ORAL SOLN 250 MG/5 ML CUP PO SCH (22:52)
[2021-12-20] MEDS: levETIRAcetam ORAL SOLN 500 MG/5 ML CUP PO SCH (22:52)
[2021-12-21] MEDS: FUROSEMIDE 20 MG TAB PO SCH ×2 (04:51→11:53)
[2021-12-21] MEDS: ASPIRIN 81 MG PO SCH (04:51)
[2021-12-21] MEDS: GABAPENTIN 100 MG CAP PO SCH ×3 (04:52→20:50)
[2021-12-21] MEDS: ACETAMINOPHEN TAB 325 MG TAB PO SCH ×2 (04:52→20:50)
[2021-12-21] MEDS: SODIUM CHLORIDE 0.9% 1,000 ML IV SCH (07:29)
[2021-12-21] MEDS: POTASSIUM CHLORIDE ER 20 MEQ TAB.ER PO SCH (08:57)
[2021-12-21] MEDS: APIXABAN 5 MG TAB PO SCH ×2 (08:57→20:50)
[2021-12-21] MEDS: SENNOSIDES-DOCUSATE SODIUM 1 EACH TAB PO SCH (08:57)
[2021-12-21] MEDS: levETIRAcetam ORAL SOLN 500 MG/5 ML CUP PO SCH ×2 (08:58→20:50)
[2021-12-21] MEDS: CITALOPRAM HYDROBROMIDE 10 MG TAB PO SCH (09:00)
[2021-12-21 10:20] LABS: Basophils # (A) 0.05 X 10*3/uL (0.00-0.10); Basophils % (A) 0.5 %; Eosinophils # (A) 0.25 X 10*3/uL (0.04-0.35); Eosinophils % (A) 2.3 %; HCT 33.6 % (39.6-50.0); HGB 10.8 g/dL (13.0-17.0); Immature Grans, Automated 0.9 %; Lymphocytes # (A) 1.83 X 10*3/uL (0.90-5.00); Lymphocytes % (A) 17.2 %; MCH 31.3 pg (27.0-32.0); MCHC 32.1 g/dL (32.0-37.0); MCV 97.4 fL (80.0-97.0); Mean Platelet Volume 10.1 fL (9.5-12.2); Monocytes # (A) 1.11 X 10*3/uL (0.20-1.00); Monocytes % (A) 10.4 %; NRBC Per 100 WBC 0 /100 WBCS (0.0-0.0); Neutrophils # (A) 7.33 X 10*3/uL (1.80-7.70); Neutrophils % (A) 68.7 %; Platelet Count 383 X 10*3/uL (140-440); RBC 3.45 X 10*6/uL (4.40-5.60); RDW 14.5 % (11.5-14.5); WBC 10.67 X 10*3/uL (4.50-10.00)
[2021-12-21 10:43] LABS: African American GFR (CKD) 160.3 (60.0-200.0); Albumin 2.8 g/dL (3.8-4.9); Albumin/Globulin Ratio 1.33 (1.60-3.17); Anion Gap 9.3 mmol/L (10.00-18.00); BUN/Creat Ratio 41.67 Ratio (12.00-20.00); Blood Urea Nitrogen 12.5 mg/dL (9.0-27.0); Calcium 8.8 mg/dL (8.7-10.3); Carbon Dioxide 27.7 mmol/L (20.0-27.5); Globulin 2.1 g/dL (1.6-3.3); Magnesium 1.5 mg/dL (1.5-2.4); Non-African American GFR(CKD) 138.3 (60.0-200.0); Phosphorus 3.7 mg/dL (2.4-5.1); Potassium 3.7 mmol/L (3.5-5.5); Total Bilirubin 0.2 mg/dL (0.30-1.20); Total Protein 4.9 g/dL (6.2-8.2)
[2021-12-21] MEDS ORDERED: VANCOMYCIN IV PER PHARMACY 1 EACH MISC MISCELLANE PRN (11:25)
[2021-12-21] MEDS: VALPROIC ACID ORAL SOLN 250 MG/5 ML CUP PO SCH ×2 (11:53→21:55)
[2021-12-21] MEDS: POTASSIUM CHLORIDE ER 10 MEQ TAB.ER.PRT PO SCH (11:53)
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
[2021-12-21] MEDS: VANCOMYCIN 2,000 MG in SODIUM CHLORIDE 0.9% 500 ML 500 ML IVPB SCH ×2 (13:15→23:07)
[2021-12-21 14:57] VITALS: BMI 28.5
[2021-12-21] MEDS: HYDROPHILIC CREAM 180 GM TUBE TOPICAL SCH (17:18)
[2021-12-21] MEDS: ATORVASTATIN 10 MG TAB PO SCH (20:50)
[2021-12-21] MEDS: SODIUM HYPOCHLORITE 0.25% 480 ML BOT MISCELLANE SCH (20:50)
[2021-12-21] MEDS: TRIAMCINOLONE 0.1% CREAM 80 GM TUBE TOPICAL SCH (21:54)
[2021-12-22] MEDS ORDERED: Magnesium Replacement Protocol 1 EACH MISC MISCELLANE PRN (05:25)
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
[2021-12-22] MEDS: MAGNESIUM SULFATE-D5W PMX 1 GM in DEXTROSE/WATER 1 100ML.BAG IVPB SCH ×2 (05:32→06:28)
[2021-12-22] MEDS: SODIUM CHLORIDE 0.9% 1,000 ML IV SCH (05:32)
[2021-12-22] MEDS: ASPIRIN 81 MG PO SCH (05:36)
[2021-12-22] MEDS: ACETAMINOPHEN TAB 325 MG TAB PO SCH (05:36)
[2021-12-22] MEDS: GABAPENTIN 100 MG CAP PO SCH ×2 (05:36→11:48)
[2021-12-22] MEDS: FUROSEMIDE 20 MG TAB PO SCH ×2 (05:36→11:48)
[2021-12-22 08:02] LABS: African American GFR (CKD) >90 (>60 ml/min/1.73 sqM); Anion Gap 6 mmol/L; Blood Urea Nitrogen 10 mg/dL (9-20); Calcium 8.1 mg/dL (8.4-10.2); Carbon Dioxide 28 mmol/L (22-30); Chloride 100 mmol/L (98-107); Glucose 126 mg/dL (74-99); Non-African American GFR(CKD) >90 (>60 ml/min/1.73 sqM); Potassium 3.6 mmol/L (3.5-5.1); Sodium 134 mmol/L (137-145)
[2021-12-22] MEDS: VALPROIC ACID ORAL SOLN 250 MG/5 ML CUP PO SCH (08:02)
[2021-12-22] MEDS: SENNOSIDES-DOCUSATE SODIUM 1 EACH TAB PO SCH (08:02)
[2021-12-22] MEDS: levETIRAcetam ORAL SOLN 500 MG/5 ML CUP PO SCH (08:02)
[2021-12-22] MEDS: APIXABAN 5 MG TAB PO SCH (08:02)
[2021-12-22] MEDS: POTASSIUM CHLORIDE ER 20 MEQ TAB.ER PO SCH (08:02)
[2021-12-22] MEDS: CITALOPRAM HYDROBROMIDE 10 MG TAB PO SCH (08:02)
[2021-12-22] MEDS: HYDROPHILIC CREAM 180 GM TUBE TOPICAL SCH (08:18)
[2021-12-22 08:37] VITALS: PULSE 96; RESP 15; TEMP 97.9
[2021-12-22] MEDS: POTASSIUM CHLORIDE ER 10 MEQ TAB.ER.PRT PO SCH (11:48)
[2021-12-22 11:49] VITALS: BP 102/62
--- NOTE | 2021-12-22 12:35 | P.DS ---
Providers Date of admission: 12/20/21 05:07 Expected date of discharge: 12/22/21 Attending physician: Camila Arizmendi Consults: 12/20/21 11:29 Consult Physician Urgent Consulting Provider: April Walker Consult Reason/Comments: infection Do you want consulting provider notified?: Yes Primary care physician: Davon Tam Hospital Course: Final diagnosis -lactic acidosis possibly of sepsis, present on admission, most likely secondary to UTI -diarrhea -Acute urinary tract infection, present on admission, most likely due to indwelling patel catheter -Right upper extremity swelling, Doppler of the right upper extremities inconclusive -Chronic venous stasis of lower extremities -Multiple ulcerations in bilateral lower extremities -Proximal atrial flutter/fibrillation currently rate controlled -History of DVT in the past -gastroesophageal reflux disease -Hypertension -Hyperlipidemia -Seizure disorder, history of traumatic brain injury -Peripheral vascular disease -Possible dementia -DVT prophylaxis -No code Discharge disposition Patient is being discharged in a stable condition with guarded prognosis to [facility] with [facility] services. Patient will follow-up with Dr. Tam in the outpatient setting upon discharge. Patient is to continue with ceftin 500mg bid for 7 days and then may discontinue. Total time taken is greater than 35 minutes. Hospital course This is a 66-year-old male who was recently admitted with possible sepsis possibly secondary to acute UTI in closely monitored. Patient was consulted for wounds along with infectious disease and initially had some positive blood cultures most likely contaminant although was maintained on IV ceftriaxone. Vancomycin was discontinued. Urine cultures showing gram-negative. Family had discussed further amongst themselves and requested informational hospice would like to return to [facility] on hospice. Patient will continue a one-week course of oral Ceftin 500 mg twice daily for the next 1 week to complete the course. Patient with extensive wounds noted over the sacral coccyx region along with bilateral lower extremities recommend to continue with local wound care. Coated influenza testing were negative. Patient remained afebrile patient is continued on 2 L via nasal cannula and recommend to continue for supplemental oxygen support. Recommend continue with dysphagia 2 ground diet and aspiration precautions. Currently no reports of chest pain, shortness of breath, or palpitations. Patient is afebrile. No reports of nausea or vomiting and patient is tolerating diet. Patient will be returning to [facility] today. Patient is a no code and will be going on [facility] Physical exam: Gen: This is a 66-year-old male awake, alert and oriented 1-2, confused chronically, obese HEENT: Head is atraumatic, normocephalic. Pupils equal, round. Sclerae is anicteric. NECK: Supple. No JVD. No lymphadenopathy. No thyromegaly. LUNGS: Sounds diminished bilaterally with some scattered rhonchi noted No intercostal retractions. HEART: Regular rate and rhythm. No murmur. ABDOMEN: Soft. Obese Bowel sounds are present. No masses. No tenderness. EXTREMITIES: No pedal edema. No calf tenderness. NEUROLOGICAL: Patient is awake, alert and oriented x1-2. Diffusely weak, mostly bedbound Please refer to medication reconciliation sheet for a list of medications. The impression and plan of care has been dictated by Cande Cox, Nurse Practitioner as directed. Dr. Tory MD I have performed a history and examination and MDM of this patient, discussed the same with the dictator, and agree with the dictator's assessment and plan as written ,documented as a scribe. Based on total visit time, I have performed more than 50% of the visit. Patient Condition at Discharge: Fair Plan - Discharge Summary Discharge Rx Participant: No New Discharge Prescriptions: New cefUROXime axetiL [Ceftin] 500 mg PO BID 7 Days #14 tab Continue Acetaminophen [Tylenol] 650 mg PO BID@0600,2100 Melatonin 5 mg PO HS Potassium Chloride [Klor-Con 20] 20 meq PO DAILY@0900 Atorvastatin [Lipitor] 10 mg PO HS Acetaminophen [Tylenol] 650 mg PO Q4H PRN PRN Reason: Pain metFORMIN HCL [Glucophage] 500 mg PO BID Potassium Chloride ER [K-Dur 10] 10 meq PO DAILY@1200 lisinopriL [Zestril] 10 mg PO HS Furosemide [Lasix] 60 mg PO DAILY@0600 Albuterol Nebulized [Ventolin Nebulized] 2.5 mg INHALATION RT-Q4H PRN ml PRN Reason: Shortness Of Breath Valproic Acid Oral Soln [Depakene Syrup] 1,500 mg PO BID@0900,2100 #60 ml levETIRAcetam ORAL SOLN [Keppra Oral Soln] 500 mg PO BID Apixaban [Eliquis] 5 mg PO BID Cholecalciferol [Vitamin D3 (25 Mcg = 1000 Iu)] 50 mcg PO DAILY@0600 Sennosides/Docusate Sodium [Senna Plus 8.6-50 mg Tablet] 1 tab PO DAILY Furosemide [Lasix] 40 mg PO DAILY@1200 Aspirin EC [Ecotrin Low Dose] 81 mg PO DAILY@0600 Z-Guard Paste 1 applic TOPICAL Q12H Citalopram Hydrobromide [CeleXA] 10 mg PO DAILY tab Triamcinolone 0.1% Cream [Kenalog 0.1% Cream] 1 applic TOPICAL HS Dakins 0.25% Soln 1 applic TOPICAL HS Prostat Awc 30 ml PO BID@0900,1700 Dakins 0.25% Soln 1 applic TOPICAL DAILY PRN PRN Reason: wound care Changed Gabapentin [Neurontin] 200 mg PO TID@0600,1200,2099 #6 cap Discharge Medication List Acetaminophen [Tylenol] 650 mg PO BID@0600,2100 04/11/14 [History] Atorvastatin [Lipitor] 10 mg PO HS 10/25/17 [History] Melatonin 5 mg PO HS 10/25/17 [History] Potassium Chloride [Klor-Con 20] 20 meq PO DAILY@0900 10/25/17 [History] Acetaminophen [Tylenol] 650 mg PO Q4H PRN 10/23/21 [History] Apixaban [Eliquis] 5 mg PO BID 10/23/21 [History] Aspirin EC [Ecotrin Low Dose] 81 mg PO DAILY@0600 10/23/21 [History] Cholecalciferol [Vitamin D3 (25 Mcg = 1000 Iu)] 50 mcg PO DAILY@0600 10/23/21 [History] Furosemide [Lasix] 40 mg PO DAILY@1200 10/23/21 [History] Furosemide [Lasix] 60 mg PO DAILY@0600 10/23/21 [History] Potassium Chloride ER [K-Dur 10] 10 meq PO DAILY@1200 10/23/21 [History] Sennosides/Docusate Sodium [Senna Plus 8.6-50 mg Tablet] 1 tab PO DAILY 10/23/21 [History] Z-Guard Paste 1 applic TOPICAL Q12H 10/23/21 [History] lisinopriL [Zestril] 10 mg PO HS 10/23/21 [History] metFORMIN HCL [Glucophage] 500 mg PO BID 10/23/21 [History] Albuterol Nebulized [Ventolin Nebulized] 2.5 mg INHALATION RT-Q4H PRN ml 10/30/21 [Rx] Citalopram Hydrobromide [CeleXA] 10 mg PO DAILY tab 10/30/21 [Rx] Valproic Acid Oral Soln [Depakene Syrup] 1,500 mg PO BID@0900,2100 #60 ml 10/30/21 [Rx] Dakins 0.25% Soln 1 applic TOPICAL DAILY PRN 12/20/21 [History] Dakins 0.25% Soln 1 applic TOPICAL HS 12/20/21 [History] Prostat Awc 30 ml PO BID@0900,1700 12/20/21 [History] Triamcinolone 0.1% Cream [Kenalog 0.1% Cream] 1 applic TOPICAL HS 12/20/21 [History] levETIRAcetam ORAL SOLN [Keppra Oral Soln] 500 mg PO BID 12/20/21 [History] Gabapentin [Neurontin] 200 mg PO TID@0600,1200,2100 #6 cap 12/22/21 [Rx] cefUROXime axetiL [Ceftin] 500 mg PO BID 7 Days #14 tab 12/22/21 [Rx] Follow up Appointment(s)/Referral(s): Davon Tam MD [Primary Care Provider] - 1-2 days [facility] on [facility], [NON-STAFF] - As Needed Activity/Diet/Wound Care/Special Instructions: Patient is returning to [facility] on hospice Activity as tolerated Continue medications as prescribed Continue antibiotics for 1 week memory discontinued Discharge Disposition: TRANSFER TO SNF/ECF
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
--- NOTE | 2021-12-22 12:42 | P.PN ---
Subjective Progress Note Date: 12/22/21 Principal diagnosis: Urine tract infection and bacteremia Patient is a 66-year-old male presenting to the hospital with weakness mental status changes with concern for catheter associated UA positive blood cultures staph epi likely contaminant. On today's evaluation that is 12/22/2021, the patient is afebrile the patient is more awake alert he is breathing comfortably he denies having any chest pain occasional cough no abdominal pain or diarrhea Objective - Vital Signs Vital signs: Vital Signs Temp 97.9 F 12/22/21 08:00 Pulse 96 12/22/21 08:00 Resp 15 12/22/21 08:00 BP 89/63 12/22/21 08:00 Pulse Ox 96 12/22/21 08:00 FiO2 Intake & Output 12/21/21 12/22/21 12/22/21 18:59 06:59 18:59 Output Total 750 400 Balance -750 -400 Weight 106.5 kg Output: Urine 750 400 Other: Voiding Method Indwelling Catheter Indwelling Catheter - Exam GENERAL DESCRIPTION: Elderly male lying in bed, no distress. No tachypnea or accessory muscle of respiration use. LUNGS: Unlabored breathing. Decrease intensity of breath sounds HEART: S1, S2, regular rate and rhythm. No loud murmur ABDOMEN: Soft, no tenderness , guarding or rigidity, no organomegaly EXTREMITIES: No edema of feet. - Labs CBC & Chem 7: 12/21/21 07:13 12/22/21 07:07 Labs: Abnormal Lab Results - Last 24 Hours (Table) 12/22/21 Range/Units 07:07 Sodium 134 L (137-145) mmol/L Creatinine 0.43 L (0.66-1.25) mg/dL Glucose 126 H (74-99) mg/dL Calcium 8.1 L (8.4-10.2) mg/dL Microbiology - Last 24 Hours (Table) 12/21/21 07:13 Blood Culture - Preliminary Blood No Growth after 24 hours 12/19/21 23:14 Blood Culture Gram Stain - Preliminary Blood Blood Culture - Preliminary Coagulase Negative Staph 12/20/21 03:15 Urine Culture - Preliminary Urine,Voided Gram Neg Bacilli Assessment and Plan (1) UTI (urinary tract infection) Current Visit: Yes Status: Acute Code(s): N39.0 - URINARY TRACT INFECTION, SITE NOT SPECIFIED SNOMED Code(s): 57060709 Plan: 1patient with a possible culture with staph epi likely skin contamination r epeat blood culture has been negative discontinue vancomycin. 2possible cath versus UTI patient seen the clinical responded to the Rocephin to continue waiting for the culture to finalize determine discharge antibiotic possible Ceftin as plan is for possible discharge and hospice oriented care at t he retirement Time with Patient: Less than 30
== END 2021-12-22 13:34 | DRG 698 ==
LOC: EC 21:01 → 3SCARD 12-20 05:07 → 4SSUR 12-20 12:06
PROVIDERS: ADMIT Hospitalist; ATTEND Hospitalist
DX: T83.511A Infection and inflammatory reaction due to indwelling urethral catheter, initial encounter (principal); A41.9 Sepsis, unspecified organism; L89.154 Pressure ulcer of sacral region, stage 4; I48.92 Unspecified atrial flutter; E87.2 Acidosis; N13.8 Other obstructive and reflux uropathy; L97.919 Non-pressure chronic ulcer of unspecified part of right lower leg with unspecified severity; L97.929 Non-pressure chronic ulcer of unspecified part of left lower leg with unspecified severity; Y73.2 Prosthetic and other implants, materials and accessory gastroenterology and urology devices associated with adverse incidents; G40.909 Epilepsy, unspecified, not intractable, without status epilepticus; I48.0 Paroxysmal atrial fibrillation; G35 Multiple sclerosis; N39.0 Urinary tract infection, site not specified; E78.5 Hyperlipidemia, unspecified; I87.2 Venous insufficiency (chronic) (peripheral); K21.9 Gastro-esophageal reflux disease without esophagitis; R29.6 Repeated falls; E86.0 Dehydration; N39.498 Other specified urinary incontinence; R19.7 Diarrhea, unspecified; I87.8 Other specified disorders of veins; F03.90 Unspecified dementia, unspecified severity, without behavioral disturbance, psychotic disturbance, mood disturbance, and anxiety; I87.323 Chronic venous hypertension (idiopathic) with inflammation of bilateral lower extremity; Z51.5 Encounter for palliative care; Z20.822 Contact with and (suspected) exposure to COVID-19; E11.51 Type 2 diabetes mellitus with diabetic peripheral angiopathy without gangrene; H91.93 Unspecified hearing loss, bilateral; N40.1 Benign prostatic hyperplasia with lower urinary tract symptoms; I10 Essential (primary) hypertension; Z66 Do not resuscitate; Z96.651 Presence of right artificial knee joint; Z87.440 Personal history of urinary (tract) infections; Z86.718 Personal history of other venous thrombosis and embolism; Z74.01 Bed confinement status; Z79.01 Long term (current) use of anticoagulants; Z79.82 Long term (current) use of aspirin; Z79.84 Long term (current) use of oral hypoglycemic drugs; Z79.899 Other long term (current) drug therapy; Z86.711 Personal history of pulmonary embolism; Z86.73 Personal history of transient ischemic attack (TIA), and cerebral infarction without residual deficits; Z87.820 Personal history of traumatic brain injury
CPT/HCPCS: 36415; 71045; 80048; 80053; 81001; 83605; 83735; 83880; 84100; 84145; 84484; 85025; 85610; 85730; 87040; 87077; 87086; 87186; 87502; 87635; 93005; 96361; 96365; 96366; 96367; 99285